=== PATIENT | male | born 1935 | race Caucasian/White ===

== ENCOUNTER 2020-02-22 09:32 | Outpatient (REF) | payer MEDICARE, SELFPAY ==
[2020-02-22 10:17] LABS: MANUAL DIFF FLAG NO
[2020-02-22 10:23] LABS: Basophils Percent Auto 0.6 % (0-2); Eosinophils Absolute Auto 0.4 X10*3/uL (0.0-0.4); Eosinophils Percent Auto 5.8 % (0-4); Hematocrit 43.2 % (42-52); Hemoglobin 14.2 g/dl (14.0-18.0); Imm Gran Abs Auto 0.01 X10*3/uL (0.00-0.03); Imm Gran Pct Auto 0.2 % (0.0-0.4); Lymphocytes Absolute Auto 1.7 X10*3/uL (1.2-4.9); Lymphocytes Percent Auto 26.4 % (20-40); Mean Corpuscular HGB Conc 32.9 g/dl (31.0-36.0); Mean Corpuscular Hemoglobin 30.8 pg (27.0-33.0); Mean Corpuscular Volume 93.7 fL (80-98); Mean Platelet Volume 10.6 fL (9.4-12.4); Monocytes Absolute Auto 0.6 X10*3/uL (0.1-1.2); Monocytes Percent Auto 9.8 % (2-11); Neutrophils Absolute Auto 3.7 X10*3/uL (2.0-8.3); Neutrophils Percent Auto 57.2 % (45-73); Platelet Count 168 X10*3/uL (160-400); Red Blood Count 4.61 X10*6/uL (4.60-5.80); Red Cell Distribution Width 13.3 % (11.0-16.0); White Blood Count 6.4 X10*3/uL (4.8-10.8)
[2020-02-22 11:01] LABS: Glucose Urine UA NEG (NEG); Leukocyte Esterase Urine NEG (NEG); Nitrite Urine NEG (NEG); Specific Gravity - Urine 1.015 (1.005-1.025); Urine Blood NEG (NEG); Urine Ketones NEG (NEG); Urine Protein NEG (NEG-TRACE)
[2020-02-22 11:02] LABS: Alanine Aminotransferase 28 U/L (0-40); Albumin Level 4.5 g/dL (3.5-5.0); Alkaline Phosphatase 88 U/L (39-117); Anion Gap 11 (12-20); Aspartate Amino Transferase 38 U/L (5-37); Bilirubin Total 0.7 mg/dL (0.0-1.0); Blood Urea Nitrogen 18 mg/dL (9-16); Calcium 8.9 mg/dL (8.4-10.2); Carbon Dioxide 28 mmol/L (22-29); Chloride 105 mmol/L (96-108); Cholesterol 134 mg/dL; Estimated Glomerular Filt Rate > 60; Glucose Fasting 98 mg/dL (60-99); HDL Cholesterol 55 mg/dL; LDL Cholesterol Calculated 62 mg/dl; Potassium 3.8 mmol/l (3.3-5.1); Sodium 140 mmol/L (135-145); Total Protein 6.9 g/dL (6.5-8.0); Triglycerides 86 mg/dL
[2020-02-22 11:10] LABS: Appearance Urine CLEAR; Color Urine YELLOW
[2020-02-22 11:25] LABS: TSH reflex Free T4 3.27 mIU/mL (0.32-4.0)
[2020-02-22 11:53] LABS: Bacteria Urine TRACE /LPF; Mucus Urine TRACE /LPF; RBC Urine 0-2 /HPF (0); Squamous Epithelial Cell Urine 1+ /LPF; WBC Urine 0-2 /HPF (0-4)
== END 2020-02-22 09:33 | disposition home or self-care (01) ==
LOC: HO.10HDL 09:32
PROVIDERS: Visit Provider Internal Medicine
DX: E78.5 Hyperlipidemia, unspecified (principal); I10 Essential (primary) hypertension; I25.10 Atherosclerotic heart disease of native coronary artery without angina pectoris; K21.9 Gastro-esophageal reflux disease without esophagitis; N40.0 Benign prostatic hyperplasia without lower urinary tract symptoms; E66.3 Overweight
CPT/HCPCS: 36415; 80053; 80061; 81001; 84443; 85025

== ENCOUNTER → 2020-04-17 09:09 | Outpatient (BNVA) | payer MEDICARE, SELFPAY | PROVIDERS: PCP Internal Medicine; Visit Provider Internal Medicine Cardiovascular Disease | DX: R42 Dizziness and giddiness (principal); R00.2 Palpitations; I25.10 Atherosclerotic heart disease of native coronary artery without angina pectoris; Z95.3 Presence of xenogenic heart valve | CPT/HCPCS: 99212 ==

== ENCOUNTER 2020-04-30 09:29 | Outpatient (REF) | payer SELFPAY | END 2020-04-30 09:30 | disposition home or self-care (01) | LOC: HO.HAP 09:29 | PROVIDERS: Visit Provider Internal Medicine | DX: Z13.89 Encounter for screening for other disorder (principal) ==

== ENCOUNTER → 2020-05-12 13:03 | Outpatient (REF) | payer MEDICARE, SELFPAY ==
--- NOTE | 2020-05-12 13:07 | HM_ITS ---
TEST PERFORMED: Cardiac event monitoring. INDICATION: Palpitations. REQUESTING PHYSICIAN: Dr. Liz. ENROLLMENT PERIOD: 05/12/2020 to 06/11/2020 - 30 days. FINDINGS: In the above monitoring period, the underlying rhythm was sinus. The ventricular rate in the sample strip is 72 beats per minute. There is one patient selected symptom of chest pain and at that time, the rhythm was sinus. Otherwise, there is no evidence of any tachy or bradyarrhythmias or in fact anything else abnormal during the above 30 days. CONCLUSION: Study shows sinus rhythm only and no other arrhythmias. During the patient symptom of chest pain, the underlying rhythm was sinus. Marcus Delacruz MD HS/LARRYL / [phone]
== END ==
LOC: HO.CARD 13:03
PROVIDERS: Visit Provider Internal Medicine Cardiovascular Disease
DX: R00.2 Palpitations (principal)
CPT/HCPCS: 93270; 93272

== ENCOUNTER 2020-05-15 12:57 | Outpatient (REF) | payer SELFPAY | END 2020-05-15 12:58 | disposition home or self-care (01) | LOC: HO.HAP 12:57 | PROVIDERS: Visit Provider Internal Medicine | DX: Z46.1 Encounter for fitting and adjustment of hearing aid (principal); H90.3 Sensorineural hearing loss, bilateral | CPT/HCPCS: V5264 ==

== ENCOUNTER 2020-06-12 09:56 | Outpatient (REF) | payer SELFPAY ==
--- NOTE | 2020-06-12 10:10 | MHC.AU.P13 ---
Hearing Instrument Problem Date of Visit: 06/12/20 Right Ear: Utility System Operator: Phonak Model: [email or web address] B70-R Serial Number: [id number] Repair Warranty: 01/11/2020 Loss and Damage Warranty: 01/11/2020 Battery Size: Rechargeable Color: Sand Beige Systems Integration Manager: 2xS Type of Mold: Phonak C-Shell 1AAUC Warranty 09/07/2020 Type of Wax Guard: Cerustop Left Ear: Utility System Operator: Phonak Model: [email or web address] B70-R Serial Number: [id number] Repair Warranty: 01/11/2020 Loss and Damage Warranty: 01/11/2020 Battery Size: Rechargeable Color: Sand Beige Systems Integration Manager: 2xS Type of Mold: Phonak C-Shell AUA Warranty 09/07/2020 Type of Wax Guard: Cerustop Follow-Up Summary: Aid brought in - not working. Both aids cleaned and wax guards changed - now amplifying clearly. Recommendations: Recommendations: Hearing instrument follow-up or maintenance as needed. Signature: Provider: CECI Huston-
== END 2020-06-12 09:57 | disposition home or self-care (01) ==
LOC: HO.HAP 09:56
PROVIDERS: Visit Provider Internal Medicine
DX: Z46.1 Encounter for fitting and adjustment of hearing aid (principal)
CPT/HCPCS: 99499

== ENCOUNTER → 2020-06-16 09:00 | Outpatient (BNVA) | payer MEDICARE, SELFPAY | PROVIDERS: PCP Internal Medicine; Visit Provider Internal Medicine Cardiovascular Disease | DX: I25.10 Atherosclerotic heart disease of native coronary artery without angina pectoris (principal); Z79.899 Other long term (current) drug therapy; Z87.891 Personal history of nicotine dependence | CPT/HCPCS: Q3014 ==

== ENCOUNTER 2020-06-20 09:32 | Outpatient (REF) | payer SELFPAY ==
--- NOTE | 2020-06-20 10:45 | MHC.AU.HFU ---
Hearing Instrument Follow-Up- Binaural Date of Visit: 06/20/20 Right Ear: Animal Care Taker: Phonak Model: [employer] B70-R Serial Number: [id number] Repair Warranty: 01/11/2020 Loss and Damage Warranty: 01/11/2020 Battery Size: Rechargeable Color: Sand Beige Junior Architect: 2xS Type of Mold: Phonak C-Shell 1AAUC Warranty 09/07/2020 Type of Wax Guard: Cerustop Left Ear: Animal Care Taker: Phonak Model: [employer] B70-R Serial Number: [id number] Repair Warranty: 01/11/2020 Loss and Damage Warranty: 01/11/2020 Battery Size: Rechargeable Color: Sand Beige Junior Architect: 2xS Type of Mold: Phonak C-Shell AUA Warranty 09/07/2020 Type of Wax Guard: Cerustop Follow-Up Summary: Patient dropped off both hearing aids, reporting they were not working. Both receivers clogged with cerumen. Wax traps replaced. cShells cleaned. Microphones vacuumed. Hearing aids are amplifying well after maintenance. Recommendations: Hearing instrument follow-up or maintenance as needed. 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 He will owe $10 for maintenance out of warranty. Diagnosis Code(s): Primary Diagnosis: H90.3 Bilateral Sensorineural Hearing Loss Signature: Provider: Rodger Mccabe, [facility]
== END 2020-06-20 09:33 | disposition home or self-care (01) ==
LOC: HO.HAP 09:32
PROVIDERS: Visit Provider Internal Medicine
DX: Z46.1 Encounter for fitting and adjustment of hearing aid (principal)
CPT/HCPCS: 99499

== ENCOUNTER 2020-07-03 09:38 | Outpatient (REF) | payer MEDICARE, SELFPAY ==
[2020-07-03 10:12] LABS: MANUAL DIFF FLAG NO
[2020-07-03 10:19] LABS: Basophils Percent Auto 0.5 % (0-2); Eosinophils Absolute Auto 0.4 X10*3/uL (0.0-0.4); Hematocrit 41.9 % (42-52); Hemoglobin 13.9 g/dl (14.0-18.0); Imm Gran Abs Auto 0.01 X10*3/uL (0.00-0.03); Imm Gran Pct Auto 0.2 % (0.0-0.4); Lymphocytes Absolute Auto 1.4 X10*3/uL (1.2-4.9); Lymphocytes Percent Auto 23.3 % (20-40); Mean Corpuscular HGB Conc 33.2 g/dl (31.0-36.0); Mean Corpuscular Hemoglobin 30.8 pg (27.0-33.0); Mean Corpuscular Volume 92.9 fL (80-98); Mean Platelet Volume 10.2 fL (9.4-12.4); Monocytes Absolute Auto 0.6 X10*3/uL (0.1-1.2); Monocytes Percent Auto 10.6 % (2-11); Neutrophils Absolute Auto 3.6 X10*3/uL (2.0-8.3); Neutrophils Percent Auto 59.4 % (45-73); Platelet Count 152 X10*3/uL (160-400); Red Blood Count 4.51 X10*6/uL (4.60-5.80); Red Cell Distribution Width 13.4 % (11.0-16.0)
[2020-07-03 10:49] LABS: Alanine Aminotransferase 32 U/L (0-40); Albumin Level 4.1 g/dL (3.5-5.0); Alkaline Phosphatase 88 U/L (39-117); Anion Gap 9 (12-20); Aspartate Amino Transferase 33 U/L (5-37); Bilirubin Total 0.7 mg/dL (0.0-1.0); Blood Urea Nitrogen 23 mg/dL (9-16); Calcium 9.3 mg/dL (8.4-10.2); Carbon Dioxide 27 mmol/L (22-29); Chloride 108 mmol/L (96-108); Cholesterol 126 mg/dL; Estimated Glomerular Filt Rate > 60; Glucose Fasting 96 mg/dL (60-99); HDL Cholesterol 47 mg/dL; LDL Cholesterol Calculated 63 mg/dl; Sodium 140 mmol/L (135-145); Total Protein 6.4 g/dL (6.5-8.0); Triglycerides 82 mg/dL
[2020-07-03 11:02] LABS: Glucose Urine UA NEG (NEG); Leukocyte Esterase Urine NEG (NEG); Nitrite Urine NEG (NEG); PH 6.5 (5.0-8.0); Urine Blood NEG (NEG); Urine Ketones NEG (NEG); Urine Protein NEG (NEG-TRACE)
[2020-07-03 11:04] LABS: TSH reflex Free T4 2.24 uIU/mL (0.32-4.0)
[2020-07-03 11:09] LABS: Appearance Urine CLEAR; Color Urine YELLOW
== END 2020-07-03 09:39 | disposition home or self-care (01) ==
LOC: HO.LAB 09:38
PROVIDERS: PCP Internal Medicine; Visit Provider Internal Medicine
DX: I10 Essential (primary) hypertension (principal); I25.10 Atherosclerotic heart disease of native coronary artery without angina pectoris; K21.9 Gastro-esophageal reflux disease without esophagitis; E78.00 Pure hypercholesterolemia, unspecified; E66.3 Overweight; N40.0 Benign prostatic hyperplasia without lower urinary tract symptoms
CPT/HCPCS: 36415; 80053; 80061; 81003; 84443; 85025

== ENCOUNTER → 2020-10-21 08:59 | Outpatient (BNVA) | payer MEDICARE, SELFPAY | PROVIDERS: PCP Internal Medicine; Referring Provider Internal Medicine; Visit Provider Internal Medicine Cardiovascular Disease | DX: I25.10 Atherosclerotic heart disease of native coronary artery without angina pectoris (principal); Z95.3 Presence of xenogenic heart valve | CPT/HCPCS: 93005; 99212 ==

== ENCOUNTER 2020-10-30 11:27 | Outpatient (REF) | payer MEDICARE, SELFPAY ==
[2020-10-30 13:57] LABS: Appearance Urine CLEAR; Color Urine YELLOW; Glucose Urine UA NEG (NEG); Leukocyte Esterase Urine NEG (NEG); Nitrite Urine NEG (NEG); Specific Gravity - Urine 1.025 (1.005-1.025); Urine Blood NEG (NEG); Urine Ketones NEG (NEG); Urine Protein TRACE MG/DL (NEG-TRACE)
[2020-10-30 14:00] LABS: MANUAL DIFF FLAG NO
[2020-10-30 14:38] LABS: Alanine Aminotransferase 25 U/L (0-40); Albumin Level 3.9 g/dL (3.5-5.0); Alkaline Phosphatase 71 U/L (39-117); Anion Gap 10 (12-20); Aspartate Amino Transferase 32 U/L (5-37); Basophils Percent Auto 0.5 % (0-2); Bilirubin Total 0.8 mg/dL (0.0-1.0); Blood Urea Nitrogen 22 mg/dL (9-16); Carbon Dioxide 25 mmol/L (22-29); Chloride 111 mmol/L (96-108); Cholesterol 114 mg/dL; Eosinophils Absolute Auto 0.3 X10*3/uL (0.0-0.4); Eosinophils Percent Auto 4.7 % (0-4); Estimated Glomerular Filt Rate > 60; Glucose Fasting 80 mg/dL (60-99); HDL Cholesterol 50 mg/dL; Hematocrit 38.5 % (42-52); Hemoglobin 12.9 g/dl (14.0-18.0); Imm Gran Abs Auto 0.01 X10*3/uL (0.00-0.03); Imm Gran Pct Auto 0.2 % (0.0-0.4); LDL Cholesterol Calculated 54 mg/dl; Lymphocytes Absolute Auto 1.4 X10*3/uL (1.2-4.9); Lymphocytes Percent Auto 25.7 % (20-40); Mean Corpuscular HGB Conc 33.5 g/dl (31.0-36.0); Mean Corpuscular Hemoglobin 31.2 pg (27.0-33.0); Mean Corpuscular Volume 93.2 fL (80-98); Mean Platelet Volume 11.1 fL (9.4-12.4); Monocytes Absolute Auto 0.7 X10*3/uL (0.1-1.2); Monocytes Percent Auto 12.4 % (2-11); Neutrophils Absolute Auto 3.1 X10*3/uL (2.0-8.3); Neutrophils Percent Auto 56.5 % (45-73); Platelet Count 139 X10*3/uL (160-400); Potassium 3.9 mmol/L (3.3-5.1); Red Blood Count 4.13 X10*6/uL (4.60-5.80); Red Cell Distribution Width 13.9 % (11.0-16.0); Sodium 142 mmol/L (135-145); Total Protein 6.1 g/dL (6.5-8.0); Triglycerides 53 mg/dL; White Blood Count 5.5 X10*3/uL (4.8-10.8)
[2020-10-30 14:49] LABS: Vitamin D 25-OH Total 28.7 ng/mL (>30)
[2020-10-30 15:06] LABS: Folate > 20.0 ng/mL (> or = 4.0); Vitamin B12 537 pg/mL (200-900)
[2020-10-30 19:02] LABS: TSH reflex Free T4 2.27 uIU/mL (0.32-4.0)
== END 2020-10-30 11:28 | disposition home or self-care (01) ==
LOC: HO.10HDL 11:27
PROVIDERS: Visit Provider Internal Medicine
DX: G62.9 Polyneuropathy, unspecified (principal); R42 Dizziness and giddiness; I10 Essential (primary) hypertension; I25.10 Atherosclerotic heart disease of native coronary artery without angina pectoris; K21.9 Gastro-esophageal reflux disease without esophagitis; E78.00 Pure hypercholesterolemia, unspecified; E55.9 Vitamin D deficiency, unspecified; E66.3 Overweight
CPT/HCPCS: 36415; 80053; 80061; 81003; 82306; 82607; 82746; 84443; 85025

== ENCOUNTER 2020-11-04 13:12 | Outpatient (REF) | payer MEDICARE, SELFPAY ==
--- NOTE | ~2020-11-04 | XR_ITS ---
EXAMINATION: XR LUMBOSACRAL SPINE CLINICAL INFORMATION: Chronic lower back pain. No recent injury. COMPARISON: Lumbar spine MRI dated 03/24/2015 TECHNIQUE: Three views of the lumbosacral spine. FINDINGS: Dextrocurvature of the lumbar spine centered at the L2 vertebral body. The lumbar lordosis is maintained. Minimal grade 1 anterolisthesis of L4 on L5. No acute loss of vertebral body height. Multilevel loss of intervertebral disc height with anterior endplate osteophytes. Severe lower lumbar spine bilateral facet arthropathy. Moderate stool burden. XR/XR lumbar spine 2-3V IMPRESSION: Dextrocurvature of the lumbar spine centered at the L2 vertebral body. Minimal grade 1 anterolisthesis of L4 on L5. Findings are unchanged. Multilevel degenerative disc disease and bilateral facet arthropathy, slightly progressed when compared to the prior examination.
== END 2020-11-04 13:13 | disposition home or self-care (01) ==
LOC: HO.XRAY 13:12
PROVIDERS: PCP Internal Medicine; Visit Provider Internal Medicine
DX: M54.5 Low back pain (principal)
CPT/HCPCS: 72100

== ENCOUNTER 2021-02-23 08:56 | Outpatient (REF) | payer MEDICARE, SELFPAY ==
[2021-02-23 10:27] LABS: Basophils Percent Auto 0.5 % (0-2); Eosinophils Absolute Auto 0.4 X10*3/uL (0.0-0.4); Eosinophils Percent Auto 7.4 % (0-4); Hematocrit 41.5 % (42.0-52.0); Hemoglobin 13.7 g/dl (14.0-18.0); Imm Gran Abs Auto 0.01 X10*3/uL (0.00-0.03); Imm Gran Pct Auto 0.2 % (0.0-0.4); Lymphocytes Absolute Auto 1.4 X10*3/uL (1.2-4.9); Lymphocytes Percent Auto 25.5 % (20-40); MANUAL DIFF FLAG NO; Mean Corpuscular Hemoglobin 30.8 pg (27.0-33.0); Mean Corpuscular Volume 93.3 fL (80.0-98.0); Mean Platelet Volume 10.8 fL (9.4-12.4); Monocytes Absolute Auto 0.5 X10*3/uL (0.1-1.2); Monocytes Percent Auto 9.7 % (2-11); Neutrophils Absolute Auto 3.2 x10*3/uL (2.0-8.3); Neutrophils Percent Auto 56.7 % (45-73); Platelet Count 147 X10*3/uL (160-400); Red Blood Count 4.45 X10*6/uL (4.60-5.80); Red Cell Distribution Width 13.4 % (11.0-16.0); White Blood Count 5.6 X10*3/uL (4.8-10.8)
[2021-02-23 10:39] LABS: Appearance Urine CLEAR; Color Urine YELLOW; Glucose Urine UA NEG (NEG); Leukocyte Esterase Urine NEG (NEG); Nitrite Urine NEG (NEG); PH 6.5 (5.0-8.0); Urine Blood NEG (NEG); Urine Ketones NEG (NEG); Urine Protein NEG (NEG-TRACE)
[2021-02-23 10:56] LABS: Alanine Aminotransferase 30 U/L (0-40); Albumin Level 3.9 g/dL (3.5-5.0); Alkaline Phosphatase 72 U/L (39-117); Anion Gap 10 (12-20); Aspartate Amino Transferase 30 U/L (5-37); Bilirubin Total 0.7 mg/dL (0.0-1.0); Blood Urea Nitrogen 17 mg/dL (9-16); Calcium 9.3 mg/dL (8.4-10.2); Carbon Dioxide 27 mmol/L (22-29); Chloride 109 mmol/L (96-108); Cholesterol 137 mg/dL; Estimated Glomerular Filt Rate > 60; Glucose Fasting 92 mg/dL (60-99); HDL Cholesterol 50 mg/dL; LDL Cholesterol Calculated 69 mg/dl; Potassium 4.1 mmol/L (3.3-5.1); Sodium 142 mmol/L (135-145); Total Protein 6.4 g/dL (6.5-8.0); Triglycerides 93 mg/dL
[2021-02-23 11:18] LABS: Vitamin D 25-OH Total 29.7 ng/mL (>30)
[2021-02-23 12:25] LABS: Free T4 (Free Thyroxine) 0.87 ng/dL (0.71-1.85)
== END 2021-02-23 08:57 | disposition home or self-care (01) ==
LOC: HO.10HDL 08:56
PROVIDERS: Visit Provider Internal Medicine
DX: E55.9 Vitamin D deficiency, unspecified (principal); I10 Essential (primary) hypertension; E78.00 Pure hypercholesterolemia, unspecified
CPT/HCPCS: 36415; 80053; 80061; 81003; 82306; 84439; 84443; 85025

== ENCOUNTER → 2021-04-27 07:25 | Outpatient (REF) | payer MEDICARE, SELFPAY ==
--- NOTE | 2021-04-27 07:28 | CA_ITS ---
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 Normal LV systolic function with impaired relaxation filling pattern 2. Normally function bioprosthetic aortic valve with mean gradient of 7 mmHg which is lower than calculated on last study with trivial aortic regurgitation 3. Normal RV systolic pressure 4. No pericardial effusion Findings Left Ventricle Normal left ventricular size, thickness, and systolic function. The visually estimated ejection fraction is between 60-65%. There is paradoxical septal motion consistent with post-operative status. Spectral Doppler is indicative of an impaired relaxation filling pattern. E/E prime ratio is between 8 and 15 consistent with indeterminate filling pressures. Right Ventricle Normal right ventricular cavity size and systolic function. Atria The left atrium is likely dilated. There is lipomatous hypertrophy of the interatrial septum. There is no evidence of interatrial shunt. The right atrium is normal in size. Aortic Valve A bioprosthetic aortic valve is present. The prosthetic aortic valve appears to be functioning normally. The mean gradient is 7 mmHg. There is trace (trivial) aortic valve regurgitation. The valve is well seated with no abnormal rocking motion. Mitral Valve There is mild anterior and posterior mitral leaflet thickening. There is mild mitral annular calcification. There is trace mitral valve regurgitation. There is no mitral valve stenosis. Pulmonic Valve The pulmonic valve was not well visualized. Tricuspid Valve Normal tricuspid valve structure. There is trace tricuspid valve regurgitation. The right ventricular systolic pressure is 23 mmHg. Normal right atrial pressure. There is no evidence of pulmonary hypertension. Great Vessels All visible segments of the aorta are normal in size. The pulmonary artery was not well visualized. Venous The inferior vena cava is normal in size and collapses greater than 50% with inspiration. Pericardium/Pleural There is no evidence of pericardial effusion. Prior Study Comparison No significant change compared to prior study dated: 10/23/2019. Measurements 2D Linear Measurements IVSd: 1.14 0.6-0.9/0.6-1.0 cm LVIDd: 3.40 3.9-5.3/4.2-5.9 cm LVIDd Index: 1.67 2.4-3.2/2.2-3.1 cm/m2 LVIDs: 2.06 2.0-3.6 cm LVPWd: 1.17 0.7-1.1 cm Ao Root: 3.40 2.1-3.5 cm LA Diam: 3.00 2.7-3.8/3.0-4.0 cm LAIDs Index: 1.47 1.5-2.3 cm/m2 LV Mass: 152.74 67-162/88-224 g LV Mass Index: 74.87 43-95/49-115 g/m2 LVOT Diam: 2.00 3.0+(-)1.3 cm 2D Systolic Function EF 4C: 62.70 >55% EF 2C: 63.40 >55% EF BiP: 63.20 >55% Mitral Valve MV Pk E: 0.78 MV PK A: 0.89 MV Decel Time: 240.00 E/A: 0.90 E'Lateral: 10.20 E'Medial: 6.64 E/E' Med: 11.70 E/E' Lat: 7.60 PHT: 70.00 MVA PHT: 3.14 Decel Kershaw: 3.24 Aortic Valve AoV Pk Floyd: 1.92 AoV Mn Floyd: 1.20 AoV VTI: 0.41 AoV Pk Grad: 15.00 Aov Mn Grad: 7.00 MOOK Cont.VTI: 1.77 LVOT LVOT Pk Floyd: 0.93 LVOT Mn Floyd: 0.71 LVOT VTI: 0.23 LVOT Pk Grad: 3.00 LVOT Mn Grad: 2.00 LVOT Diam: 2.00 LVOT Area: 3.14 Diastolic Function MV Pk E: 0.78 MV Pk A: 0.89 E/A: 0.90 E'Medial: 6.64 E/E' Med: 11.70 E' Laterial: 10.20 E/E' Lat: 7.60 Right Ventricle TAPSE (mm): 22.00 TVS' Floyd: 10.00 Tricuspid Valve TR Pk Floyd: 2.26 TR Pk Grad: 20.00 RA Press: 3.00 RVSP: 23.00 Great Vessels Aorta Ao Root-2D: 3.40 2.0-3.7 cm Sinus of Valsalva: 3.30 2.0-3.5 cm Ao Asc: 3.40 2.1-3.4 cm Pulmonary Valve PV Pk Floyd: 1.00 Peak PV Grad: 4.00 Updated in Other Vendor System with Status of Final Juan Alberto Liz MD electronically signed on 04/28/2021 9:34:11 AM with status of Final
== END ==
LOC: HO.CARD 07:25
PROVIDERS: PCP Internal Medicine; Visit Provider Internal Medicine Cardiovascular Disease
DX: I10 Essential (primary) hypertension (principal); I25.10 Atherosclerotic heart disease of native coronary artery without angina pectoris; Z95.3 Presence of xenogenic heart valve
CPT/HCPCS: 93306

== ENCOUNTER → 2021-04-28 09:21 | Outpatient (BNVA) | payer MEDICARE, SELFPAY | PROVIDERS: PCP Internal Medicine; Referring Provider Internal Medicine; Visit Provider Internal Medicine Cardiovascular Disease | DX: I25.10 Atherosclerotic heart disease of native coronary artery without angina pectoris (principal); Z95.3 Presence of xenogenic heart valve | CPT/HCPCS: 99212 ==

== ENCOUNTER 2021-06-22 10:10 | Outpatient (REF) | payer MEDICARE, SELFPAY ==
[2021-06-22 10:30] LABS: MANUAL DIFF FLAG NO
[2021-06-22 10:33] LABS: Basophils Percent Auto 0.3 % (0-2); Eosinophils Absolute Auto 0.4 X10*3/uL (0.0-0.4); Eosinophils Percent Auto 6.5 % (0-4); Hematocrit 42.8 % (42.0-52.0); Hemoglobin 14.1 g/dl (14.0-18.0); Imm Gran Abs Auto 0.01 X10*3/uL (0.00-0.03); Imm Gran Pct Auto 0.2 % (0.0-0.4); Lymphocytes Absolute Auto 1.4 X10*3/uL (1.2-4.9); Lymphocytes Percent Auto 24.1 % (20-40); Mean Corpuscular HGB Conc 32.9 g/dl (31.0-36.0); Mean Corpuscular Hemoglobin 30.7 pg (27.0-33.0); Mean Corpuscular Volume 93.2 fL (80.0-98.0); Mean Platelet Volume 10.5 fL (9.4-12.4); Monocytes Absolute Auto 0.6 X10*3/uL (0.1-1.2); Neutrophils Absolute Auto 3.5 x10*3/uL (2.0-8.3); Neutrophils Percent Auto 58.9 % (45-73); Platelet Count 157 X10*3/uL (160-400); Red Blood Count 4.59 X10*6/uL (4.60-5.80); Red Cell Distribution Width 13.5 % (11.0-16.0)
[2021-06-22 11:02] LABS: Alanine Aminotransferase 29 U/L (0-40); Albumin Level 4.1 g/dL (3.5-5.0); Alkaline Phosphatase 71 U/L (39-117); Anion Gap 13 (12-20); Aspartate Amino Transferase 33 U/L (5-37); Bilirubin Total 0.7 mg/dL (0.0-1.0); Blood Urea Nitrogen 20 mg/dL (9-16); Calcium 9.5 mg/dL (8.4-10.2); Carbon Dioxide 25 mmol/L (22-29); Chloride 110 mmol/L (96-108); Cholesterol 141 mg/dL; Estimated Glomerular Filt Rate > 60; Glucose Fasting 102 mg/dL (60-99); HDL Cholesterol 48 mg/dL; LDL Cholesterol Calculated 77 mg/dl; Potassium 4.9 mmol/L (3.3-5.1); Sodium 143 mmol/L (135-145); Total Protein 6.7 g/dL (6.5-8.0); Triglycerides 80 mg/dL
[2021-06-22 11:24] LABS: TSH reflex Free T4 3.56 uIU/mL (0.32-4.0); Vitamin D 25-OH Total 33.5 ng/mL (>30)
[2021-06-22 13:59] LABS: Appearance Urine CLEAR; Color Urine YELLOW; Glucose Urine UA NEG (NEG); Leukocyte Esterase Urine NEG (NEG); Nitrite Urine NEG (NEG); PH 6.5 (5.0-8.0); Specific Gravity - Urine 1.015 (1.005-1.025); Urine Blood NEG (NEG); Urine Ketones NEG (NEG); Urine Protein TRACE MG/DL (NEG-TRACE)
== END 2021-06-22 10:11 | disposition home or self-care (01) ==
LOC: HO.10HDL 10:10
PROVIDERS: Visit Provider Internal Medicine
DX: E78.00 Pure hypercholesterolemia, unspecified (principal); E55.9 Vitamin D deficiency, unspecified; I10 Essential (primary) hypertension
CPT/HCPCS: 36415; 80053; 80061; 81003; 82306; 84443; 85025

== ENCOUNTER 2021-10-26 09:43 | Outpatient (REF) | payer MEDICARE, SELFPAY ==
[2021-10-26 10:44] LABS: MANUAL DIFF FLAG NO
[2021-10-26 10:55] LABS: Basophils Percent Auto 0.5 % (0-2); Eosinophils Absolute Auto 0.3 X10*3/uL (0.0-0.4); Eosinophils Percent Auto 4.5 % (0-4); Hematocrit 40.7 % (42.0-52.0); Hemoglobin 13.3 g/dl (14.0-18.0); Imm Gran Abs Auto 0.01 X10*3/uL (0.00-0.03); Imm Gran Pct Auto 0.2 % (0.0-0.4); Lymphocytes Absolute Auto 1.4 X10*3/uL (1.2-4.9); Lymphocytes Percent Auto 25.2 % (20-40); Mean Corpuscular HGB Conc 32.7 g/dl (31.0-36.0); Mean Corpuscular Hemoglobin 31.3 pg (27.0-33.0); Mean Corpuscular Volume 95.8 fL (80.0-98.0); Mean Platelet Volume 11.3 fL (9.4-12.4); Monocytes Absolute Auto 0.6 X10*3/uL (0.1-1.2); Monocytes Percent Auto 10.3 % (2-11); Neutrophils Absolute Auto 3.4 x10*3/uL (2.0-8.3); Neutrophils Percent Auto 59.3 % (45-73); Platelet Count 119 X10*3/uL (160-400); Red Blood Count 4.25 X10*6/uL (4.60-5.80); Red Cell Distribution Width 13.5 % (11.0-16.0); White Blood Count 5.7 X10*3/uL (4.8-10.8)
[2021-10-26 11:01] LABS: Appearance Urine Clear; Color Urine Yellow; Glucose Urine UA Negative (Negative); Leukocyte Esterase Urine Trace (Negative); Nitrite Urine Negative (Negative); PH 6.5 (5.0-9.0); Specific Gravity - Urine 1.025 (1.005-1.025); Urine Blood Negative (Negative); Urine Ketones Trace mg/dL (Negative); Urine Protein Trace mg/dL (Neg-Trace)
[2021-10-26 11:08] LABS: Bacteria Urine None Seen (None Seen); Hyaline Casts Urine 0-2 /LPF (0-2); RBC Urine 0-2 /HPF (0-2); Squamous Epithelial Cell Urine 0-2 /HPF (0-2); WBC Urine 0-5 /HPF (0-5)
[2021-10-26 11:09] LABS: UACC Culture Trigger NO
[2021-10-26 11:34] LABS: Alanine Aminotransferase 24 U/L (0-40); Albumin Level 4.2 g/dL (3.5-5.0); Alkaline Phosphatase 69 U/L (39-117); Anion Gap 13 (12-20); Aspartate Amino Transferase 32 U/L (5-37); Bilirubin Total 0.9 mg/dL (0.0-1.0); Blood Urea Nitrogen 19 mg/dL (9-16); Calcium 9.2 mg/dL (8.4-10.2); Carbon Dioxide 27 mmol/L (22-29); Chloride 106 mmol/L (96-108); Cholesterol 130 mg/dL; Estimated Glomerular Filt Rate > 60; Glucose Fasting 94 mg/dL (60-99); HDL Cholesterol 48 mg/dL; LDL Cholesterol Calculated 66 mg/dl; Potassium 4.7 mmol/L (3.3-5.1); Sodium 141 mmol/L (135-145); Total Protein 6.7 g/dL (6.5-8.0); Triglycerides 84 mg/dL
[2021-10-26 11:44] LABS: TSH reflex Free T4 3.19 uIU/mL (0.32-4.0); Vitamin D 25-OH Total 38.6 ng/mL (>30)
== END 2021-10-26 09:44 | disposition home or self-care (01) ==
LOC: HO.10HDL 09:43
PROVIDERS: Visit Provider Internal Medicine
DX: I10 Essential (primary) hypertension (principal); E78.00 Pure hypercholesterolemia, unspecified; E55.9 Vitamin D deficiency, unspecified
CPT/HCPCS: 36415; 80053; 80061; 81001; 81003; 82306; 84443; 85025

== ENCOUNTER 2022-03-09 10:28 | Outpatient (REF) | payer MEDICARE, SELFPAY ==
[2022-03-09 13:56] LABS: Appearance Urine Clear; Color Urine Yellow; Glucose Urine UA Negative (Negative); Leukocyte Esterase Urine Negative (Negative); Nitrite Urine Negative (Negative); PH 6.5 (5.0-9.0); Urine Blood Negative (Negative); Urine Ketones Negative (Negative); Urine Protein Negative (Neg-Trace)
[2022-03-09 14:19] LABS: Basophils Percent Auto 0.5 % (0-2); Eosinophils Absolute Auto 0.4 X10*3/uL (0.0-0.4); Eosinophils Percent Auto 6.8 % (0-4); Hematocrit 42.9 % (42.0-52.0); Hemoglobin 13.9 g/dl (14.0-18.0); Imm Gran Abs Auto 0.02 X10*3/uL (0.00-0.03); Imm Gran Pct Auto 0.3 % (0.0-0.4); Lymphocytes Absolute Auto 1.6 X10*3/uL (1.2-4.9); Lymphocytes Percent Auto 25.9 % (20-40); MANUAL DIFF FLAG NO; Mean Corpuscular HGB Conc 32.4 g/dl (31.0-36.0); Mean Corpuscular Hemoglobin 30.6 pg (27.0-33.0); Mean Corpuscular Volume 94.5 fL (80.0-98.0); Mean Platelet Volume 11.9 fL (9.4-12.4); Monocytes Absolute Auto 0.6 X10*3/uL (0.1-1.2); Monocytes Percent Auto 9.3 % (2-11); Neutrophils Absolute Auto 3.6 x10*3/uL (2.0-8.3); Neutrophils Percent Auto 57.2 % (45-73); Platelet Count 123 X10*3/uL (160-400); Red Blood Count 4.54 X10*6/uL (4.60-5.80); Red Cell Distribution Width 13.5 % (11.0-16.0); White Blood Count 6.3 X10*3/uL (4.8-10.8)
[2022-03-09 15:31] LABS: Alanine Aminotransferase 28 U/L (0-40); Albumin Level 4.2 g/dL (3.5-5.0); Alkaline Phosphatase 72 U/L (39-117); Anion Gap 12 (12-20); Aspartate Amino Transferase 33 U/L (5-37); Bilirubin Total 0.9 mg/dL (0.0-1.0); Blood Urea Nitrogen 22 mg/dL (9-16); Calcium 9.2 mg/dL (8.4-10.2); Carbon Dioxide 27 mmol/L (22-29); Chloride 107 mmol/L (96-108); Cholesterol 139 mg/dL; Estimated Glomerular Filt Rate 59; Glucose Fasting 92 mg/dL (60-99); HDL Cholesterol 51 mg/dL; LDL Cholesterol Calculated 72 mg/dl; Potassium 4.3 mmol/L (3.3-5.1); Sodium 142 mmol/L (135-145); TSH reflex Free T4 4.63 uIU/mL (0.32-4.0); Total Protein 6.6 g/dL (6.5-8.0); Triglycerides 83 mg/dL; Vitamin D 25-OH Total 30.2 ng/mL (>30)
[2022-03-09 16:01] LABS: Free T4 (Free Thyroxine) 0.83 ng/dL (0.71-1.85)
== END 2022-03-09 10:29 | disposition home or self-care (01) ==
LOC: HO.10HDL 10:28
PROVIDERS: Visit Provider Internal Medicine
DX: I10 Essential (primary) hypertension (principal); E55.9 Vitamin D deficiency, unspecified; E78.00 Pure hypercholesterolemia, unspecified
CPT/HCPCS: 36415; 80053; 80061; 81003; 82306; 84439; 84443; 85025

== ENCOUNTER → 2022-04-13 08:52 | Outpatient (REF) | payer MEDICARE, SELFPAY ==
--- NOTE | ~2022-04-13 | NM_ITS ---
EXERCISE MYOCARDIAL PERFUSION STUDY INDICATION: Chest pain, assess for coronary disease and ischemia TECHNIQUE: The patient was brought in for an exercise perfusion study on 04/15/2022. Patient performed exercise as per Avelino protocol and was injected 30 mCi of sestamibi once target heart rate was achieved. Images were obtained using the SPECT gamma camera interlaced with the gating device. Images were obtained in supine position. Resting perfusion study was performed on 04/13/2022. Patient was administered 30 mCi of sestamibi intravenously at rest. Images were then obtained in supine position. Total DLP 77mGy-cm. Images were processed with the software and compared side to side in short axis, horizontal long axis and vertical long axis views. FINDINGS: Raw images were reviewed. The stress perfusion study showed diminished tracer uptake along the inferior wall. There is significant improvement with CT attenuation correction suggestive of diaphragmatic attenuation artifact. The gated study shows normal LV systolic function with calculated LVEF of 63%. LV cavity is normal in size. The gated study shows normal wall thickening and contraction of segments. Resting study shows diminished tracer uptake along the inferior wall. There is significant improvement with CT attenuation correction suggestive of diaphragmatic attenuation artifact. Gating at rest reveals normal wall motion with ejection fraction at 68%. The findings are consistent with fixed inferior defect, suspected to be from diaphragmatic attenuation artifact. No reversible defects. NM/NM cardiolite stress test IMPRESSION: 1. Myocardial perfusion imaging study shows likely normal myocardial perfusion. 2. Gated LVEF is 62% during stress and 68% during rest. 3. Transient ischemic dilatation not present. EKG component of the test reported separately.
--- NOTE | 2022-04-13 09:12 | CA_ITS ---
Acquisition Time: 2022-04-13 09:15:36 Total Exercise Time: 00:00:00 Test Indications: cp Medications: see h Protocol: ADELE Max HR: 082 BPM 60% of Pred: 135 BPM Max BP: 126/110 mmHG Max Work Load: 1.0 METS Resting images today and stress test . pt will come in for ECHO tomorrow Referred By: Ceferino Braxton Overread By:
--- NOTE | 2022-04-13 10:37 | CA_ITS ---
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 Normal LV systolic function with impaired relaxation filling pattern with elevated filling pressures 2. Mildly dilated left atrium 3. Bioprosthetic aortic valve present with increase mean gradient at 13 mmHg 4. Normal RV systolic pressure 5. Mildly dilated ascending aorta at 3.8 cm 6. No pericardial effusion Findings Left Ventricle Normal left ventricular size, thickness, and systolic function. The visually estimated ejection fraction is between 60-65%. Spectral Doppler is indicative of an impaired relaxation filling pattern. E/E prime ratio is >15, consistent with elevated filling pressures. There is mild septal asymmetric hypertrophy. Right Ventricle Normal right ventricular cavity size and systolic function. Atria The left atrium is mildly dilated. There is no evidence of interatrial shunt. The right atrium is likely dilated. Aortic Valve A bioprosthetic aortic valve is present. the bioprosthetic valve is well seated with no abnormal rocking motion. The mean gradient across the bioprosthetic valve is increased to 13 mmHg. The leaflets are not well visualized. Mitral Valve There is mild anterior and posterior mitral leaflet thickening. There is trace mitral valve regurgitation. There is no mitral valve stenosis. Pulmonic Valve The pulmonic valve was not well visualized. Tricuspid Valve Likely normal tricuspid valve structure and function. There is trace tricuspid valve regurgitation. The right ventricular systolic pressure is normal. The right ventricular systolic pressure is 21 mmHg. Normal right atrial pressure. There is no evidence of pulmonary hypertension. Great Vessels The pulmonary artery was not well visualized. There is mild dilatation of the ascending aorta measuring 3.80 cm. Venous The inferior vena cava is normal in size and collapses greater than 50% with inspiration. Pericardium/Pleural There is no evidence of pericardial effusion. Prior Study Comparison Changes noted compared to prior study dated: 04/27/2021. mean gradient across the aortic valve are elevated. Will follow-up with repeat study in 1 year's time Measurements 2D Linear Measurements IVSd: 1.21 0.6-0.9/0.6-1.0 cm LVIDd: 5.03 3.9-5.3/4.2-5.9 cm LVIDd Index: 2.45 2.4-3.2/2.2-3.1 cm/m2 LVIDs: 2.98 2.0-3.6 cm LVPWd: 0.98 0.7-1.1 cm LA Diam: 4.10 2.7-3.8/3.0-4.0 cm LAIDs Index: 2.00 1.5-2.3 cm/m2 LV Mass: 259.72 67-162/88-224 g LV Mass Index: 126.69 43-95/49-115 g/m2 LVOT Diam: 2.00 3.0+(-)1.3 cm 2D Systolic Function EF 4C: 63.70 >55% EF 2C: 62.50 >55% EF BiP: 63.20 >55% Mitral Valve MV Pk E: 1.03 MV PK A: 1.11 MV Decel Time: 253.00 E/A: 0.90 E'Lateral: 6.85 E'Medial: 6.31 E/E' Med: 16.30 E/E' Lat: 15.00 PHT: 74.00 MVA PHT: 2.97 Decel Pleasants: 4.07 Aortic Valve AoV Pk Floyd: 2.44 AoV Mn Floyd: 1.64 AoV VTI: 0.61 AoV Pk Grad: 24.00 Aov Mn Grad: 13.00 MOOK Cont.VTI: 1.84 AI Pk Floyd: 3.23 AI Pleasants: 3.05 LVOT LVOT Pk Floyd: 1.51 LVOT Mn Floyd: 0.98 LVOT VTI: 0.36 LVOT Pk Grad: 9.00 LVOT Mn Grad: 5.00 LVOT Diam: 2.00 LVOT Area: 3.14 Diastolic Function MV Pk E: 1.03 MV Pk A: 1.11 E/A: 0.90 E'Medial: 6.31 E/E' Med: 16.30 E' Laterial: 6.85 E/E' Lat: 15.00 Right Ventricle TAPSE (mm): 20.30 TVS' Floyd: 9.90 Tricuspid Valve TR Pk Floyd: 2.12 TR Pk Grad: 18.00 RA Press: 3.00 RVSP: 21.00 Great Vessels Aorta Sinus of Valsalva: 3.40 2.0-3.5 cm Ao Asc: 3.80 2.1-3.4 cm Pulmonary Valve PV Pk Floyd: 1.37 Peak PV Grad: 8.00 Updated in Other Vendor System with Status of Final Juan Alberto Liz MD electronically signed on 04/15/2022 8:28:58 AM with status of Final
== END ==
LOC: HO.CARD 08:52
PROVIDERS: PCP Internal Medicine; Visit Provider Internal Medicine
DX: R07.9 Chest pain, unspecified (principal)
CPT/HCPCS: 78452; 93017; 93306; A9500

== ENCOUNTER → 2022-04-29 09:24 | Outpatient (BNVA) | payer MEDICARE, SELFPAY | PROVIDERS: PCP Internal Medicine; Referring Provider Internal Medicine; Visit Provider Internal Medicine Cardiovascular Disease | DX: I25.10 Atherosclerotic heart disease of native coronary artery without angina pectoris (principal); R42 Dizziness and giddiness; R60.0 Localized edema; Z95.3 Presence of xenogenic heart valve | CPT/HCPCS: 93005; 99212 ==

== ENCOUNTER 2022-05-19 09:44 | Outpatient (REF) | payer MEDICARE, SELFPAY ==
--- NOTE | ~2022-05-19 | US_ITS ---
EXAMINATION: US EXTRACRANIAL CAROTID DUPLEX, BILATERAL CLINICAL INFORMATION: Dizziness. Former smoker. Hyperlipidemia. COMPARISON: None available. TECHNIQUE: Real-time ultrasound and Doppler techniques (integrating B-mode 2-D vascular images, Doppler spectral analysis and color-flow Doppler imaging) were utilized to interrogate the extracranial carotid arteries, the vertebral arteries and proximal subclavian arteries bilaterally. The degree of stenosis is determined by criteria similar to NASCET. FINDINGS: Right Side: 1. There is mild atherosclerotic plaque seen in the bifurcation/proximal ICA region. 2. The common carotid artery PSV proximally is 131 cm/s and distally 125 cm/s. 3. The proximal internal carotid artery velocities are 99 cm/s systolic and 23 cm/s diastolic. 4. The proximal external carotid artery PSV is 102 cm/s. 5. The vertebral artery shows antegrade flow. 6. The subclavian artery waveforms are normal. Left Side: 1. There is mild atherosclerotic plaque seen in the bifurcation/proximal ICA region. 2. The common carotid artery PSV proximally is 150 cm/s and distally 128 cm/s. 3. The proximal internal carotid artery velocities are 110 cm/s systolic and 22 cm/s diastolic. 4. The proximal external carotid artery PSV is 90 cm/s. 5. The vertebral artery shows antegrade flow. 6. The subclavian artery waveforms are normal. US/US carotid duplex BI IMPRESSION: 1. RIGHT: Minimal, non-hemodynamically significant stenosis of the proximal right internal carotid artery corresponding to a 0-49% stenosis by velocity criteria. 2. LEFT: Minimal, non-hemodynamically significant stenosis of the proximal left internal carotid artery corresponding to a 0-49% stenosis by velocity criteria.
== END 2022-05-19 09:45 | disposition home or self-care (01) ==
LOC: HO.US 09:44
PROVIDERS: PCP Internal Medicine; Visit Provider Internal Medicine Cardiovascular Disease
DX: R42 Dizziness and giddiness (principal)
CPT/HCPCS: 93880

== ENCOUNTER 2022-07-07 09:13 | Outpatient (REF) | payer MEDICARE, SELFPAY ==
[2022-07-07 10:22] LABS: MANUAL DIFF FLAG NO
[2022-07-07 10:31] LABS: Appearance Urine Clear; Color Urine Dark Yellow; Glucose Urine UA Negative (Negative); Leukocyte Esterase Urine Negative (Negative); Nitrite Urine Negative (Negative); PH 6.5 (5.0-9.0); Specific Gravity - Urine 1.025 (1.005-1.025); UMIC TRIGGER UACC YES; Urine Blood Negative (Negative); Urine Ketones Trace mg/dL (Negative); Urine Protein 100 (2+) mg/dL (Neg-Trace)
[2022-07-07 10:34] LABS: Bacteria Urine None Seen (None Seen); Hyaline Casts Urine 0-2 /LPF (0-2); Squamous Epithelial Cell Urine 0-2 /HPF (0-2); WBC Urine 0-5 /HPF (0-5)
[2022-07-07 10:37] LABS: Basophils Percent Auto 0.7 % (0-2); Eosinophils Absolute Auto 0.3 X10*3/uL (0.0-0.4); Eosinophils Percent Auto 5.1 % (0-4); Hematocrit 39.6 % (42.0-52.0); Hemoglobin 13.1 g/dl (14.0-18.0); Imm Gran Abs Auto 0.01 X10*3/uL (0.00-0.03); Imm Gran Pct Auto 0.2 % (0.0-0.4); Lymphocytes Absolute Auto 1.4 X10*3/uL (1.2-4.9); Lymphocytes Percent Auto 25.4 % (20-40); Mean Corpuscular HGB Conc 33.1 g/dl (31.0-36.0); Mean Corpuscular Volume 93.6 fL (80.0-98.0); Mean Platelet Volume 11.5 fL (9.4-12.4); Monocytes Absolute Auto 0.6 X10*3/uL (0.1-1.2); Monocytes Percent Auto 10.6 % (2-11); Neutrophils Absolute Auto 3.3 x10*3/uL (2.0-8.3); Red Blood Count 4.23 X10*6/uL (4.60-5.80); Red Cell Distribution Width 13.5 % (11.0-16.0); White Blood Count 5.7 X10*3/uL (4.8-10.8)
[2022-07-07 10:38] LABS: Platelet Count 96 X10*3/uL (160-400)
[2022-07-07 11:19] LABS: Alanine Aminotransferase 39 U/L (0-40); Alkaline Phosphatase 70 U/L (39-117); Anion Gap 12 (12-20); Aspartate Amino Transferase 49 U/L (5-37); Bilirubin Total 1.2 mg/dL (0.0-1.0); Blood Urea Nitrogen 20 mg/dL (9-16); Calcium 9.5 mg/dL (8.4-10.2); Carbon Dioxide 27 mmol/L (22-29); Chloride 110 mmol/L (96-108); Cholesterol 118 mg/dL; Estimated Glomerular Filt Rate 59; Glucose Fasting 94 mg/dL (60-99); HDL Cholesterol 46 mg/dL; LDL Cholesterol Calculated 60 mg/dl; Potassium 4.4 mmol/L (3.3-5.1); Sodium 145 mmol/L (135-145); Total Protein 6.4 g/dL (6.5-8.0); Triglycerides 64 mg/dL
[2022-07-07 11:23] LABS: TSH reflex Free T4 3.53 uIU/mL (0.32-4.0); Vitamin D 25-OH Total 37.9 ng/mL (>30)
== END 2022-07-07 09:14 | disposition home or self-care (01) ==
LOC: HO.10HDL 09:13
PROVIDERS: Visit Provider Internal Medicine
DX: I10 Essential (primary) hypertension (principal); E55.9 Vitamin D deficiency, unspecified; E78.00 Pure hypercholesterolemia, unspecified
CPT/HCPCS: 36415; 80053; 80061; 81001; 82306; 84443; 85025

== ENCOUNTER 2022-09-01 12:48 | Outpatient (REF) | payer MEDICARE, SELFPAY | END 2022-09-01 12:49 | disposition home or self-care (01) | LOC: HO.HAP 12:48 | PROVIDERS: Visit Provider Internal Medicine | DX: Z13.89 Encounter for screening for other disorder (principal) ==

== ENCOUNTER 2022-09-30 08:36 | Outpatient (REF) | payer SELFPAY | END 2022-09-30 08:37 | disposition home or self-care (01) | LOC: HO.HAP 08:36 | PROVIDERS: Visit Provider Internal Medicine | DX: Z46.1 Encounter for fitting and adjustment of hearing aid (principal); H90.3 Sensorineural hearing loss, bilateral | CPT/HCPCS: V5014 ==

== ENCOUNTER 2022-11-12 08:38 | Outpatient (REF) | payer MEDICARE, SELFPAY ==
[2022-11-12 10:49] LABS: MANUAL DIFF FLAG NO
[2022-11-12 10:55] LABS: Appearance Urine Clear; Color Urine Yellow; Glucose Urine UA Negative (Negative); Leukocyte Esterase Urine Trace (Negative); Nitrite Urine Negative (Negative); Specific Gravity - Urine 1.025 (1.005-1.025); UMIC TRIGGER UACC YES; Urine Blood Negative (Negative); Urine Ketones Negative (Negative); Urine Protein 30 (1+) mg/dL (Neg-Trace)
[2022-11-12 11:02] LABS: Bacteria Urine None Seen (None Seen); Hyaline Casts Urine 0-2 /LPF (0-2); RBC Urine 0-2 /HPF (0-2); Squamous Epithelial Cell Urine 0-2 /HPF (0-2); WBC Urine 0-5 /HPF (0-5)
[2022-11-12 11:15] LABS: Basophils Percent Auto 0.5 % (0-2); Eosinophils Absolute Auto 0.3 X10*3/uL (0.0-0.4); Hemoglobin 12.9 g/dl (14.0-18.0); Imm Gran Abs Auto 0.01 X10*3/uL (0.00-0.03); Imm Gran Pct Auto 0.2 % (0.0-0.4); Lymphocytes Absolute Auto 1.4 X10*3/uL (1.2-4.9); Lymphocytes Percent Auto 25.2 % (20-40); Mean Corpuscular HGB Conc 33.1 g/dl (31.0-36.0); Mean Corpuscular Hemoglobin 31.8 pg (27.0-33.0); Mean Corpuscular Volume 96.1 fL (80.0-98.0); Mean Platelet Volume 12.4 fL (9.4-12.4); Monocytes Absolute Auto 0.7 X10*3/uL (0.1-1.2); Monocytes Percent Auto 12.8 % (2-11); Neutrophils Absolute Auto 3.2 x10*3/uL (2.0-8.3); Neutrophils Percent Auto 55.3 % (45-73); Platelet Count 82 X10*3/uL (160-400); Red Blood Count 4.06 X10*6/uL (4.60-5.80); Red Cell Distribution Width 13.5 % (11.0-16.0); White Blood Count 5.7 X10*3/uL (4.8-10.8)
[2022-11-12 11:23] LABS: Alanine Aminotransferase 48 U/L (0-40); Albumin Level 4.1 g/dL (3.5-5.0); Alkaline Phosphatase 64 U/L (39-117); Anion Gap 13 (12-20); Aspartate Amino Transferase 51 U/L (5-37); Bilirubin Total 0.8 mg/dL (0.0-1.0); Blood Urea Nitrogen 22 mg/dL (9-16); Calcium 9.3 mg/dL (8.4-10.2); Carbon Dioxide 25 mmol/L (22-29); Chloride 109 mmol/L (96-108); Cholesterol 118 mg/dL (<200); Estimated Glomerular Filt Rate > 60; Glucose Fasting 96 mg/dL (60-99); HDL Cholesterol 49 mg/dL (>40); LDL Cholesterol Calculated 58 mg/dL (<100); Potassium 4.3 mmol/L (3.3-5.1); Sodium 143 mmol/L (135-145); Total Protein 6.6 g/dL (6.5-8.0); Triglycerides 59 mg/dL (<150)
[2022-11-12 11:45] LABS: TSH reflex Free T4 3.86 uIU/mL (0.32-4.0); Vitamin D 25-OH Total 48.6 ng/mL (>30)
== END 2022-11-12 08:39 | disposition home or self-care (01) ==
LOC: HO.10HDL 08:38
PROVIDERS: Visit Provider Internal Medicine
DX: I10 Essential (primary) hypertension (principal); E78.00 Pure hypercholesterolemia, unspecified; E55.9 Vitamin D deficiency, unspecified; R30.0 Dysuria
CPT/HCPCS: 36415; 80053; 80061; 81001; 82306; 84443; 85025

== ENCOUNTER 2022-11-17 16:20 | Outpatient (AMB) | payer MEDICARE, SELFPAY ==
[2022-11-17 16:23] VITALS: BP 136/72; PULSE 70; O2SAT 97; BMI 24.2
--- NOTE | 2022-11-17 16:23 | MHC.PC.OV ---
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 Accompanied by: Self / Same As Patient Allergies No Known Allergies Allergy (Verified 11/18/22 05:05) Medication List - Last Reconciled 11/18/22 by Ceferino Braxton MD amoxicillin 2,000 mg (4 x 500 mg) PO ONCE aspirin (Ecotrin Low Strength) 81 mg PO DAILY brimonidine 0.2% 1 drp ophthalmic (eye) bumetanide 1 mg orally 1 tablet in am and 1/2 tablet at noon time 90 days ezetimibe (Zetia) 10 mg PO DAILY 90 days ibuprofen 800 mg PO TID omeprazole 20 mg PO DAILY rosuvastatin 40 mg PO DAILY sertraline 25 mg PO DAILY 30 days terazosin 5 mg PO DAILY Tobacco use date assessed: 11/17/22 Fall risk assessment: No Falls in past year Last assessed Fall Risk: 11/17/22 Dental Screening Dental Screen Date: 11/17/22 Did you have a dental visit in the last 12 months?: Yes Did you have a dental problem in the last 6 months where you did not have access to dental care?: No Was dental information given to patient?: Patient has dentist HPI Bilateral eye lid surgery, 11/29 HPI Details Patient comes in today at the request of Dr. Rigoberto Nielsen for a preoperative medical examination for clearance for surgery He is scheduled for bilateral eyelid surgery on 11/29/22 Patient states that he has been experiencing recurrent sensation of chest pressure as well as a frequent sensation wherein he feels his heart is pounding like crazy often for the past month States that his chest / heart sensation sometimes wake him up in the middle of the night States that he was able to get an appointment with cardiology (Dr. Liz) but his appointment recently got cancelled and he was rescheduled out to next month (December 2022) He is presently not sure if he should proceed with his eye surgery given his recurrent chest symptoms lately He has notice some shortness of breath associated with his chest pressure sensations lately He denies any headaches or dizziness No nausea/ vomiting, no abdominal pain No change in bowel habits noted States that he had some follow-up labs done a few days ago - discuss his results [facility] Medical History (Updated 11/18/22 @ 05:30 by Ceferino Braxton MD) Dermatochalasis of both upper eyelids Vitamin D deficiency Dizziness Overweight (BMI 25.0-29.9) Insomnia Sensorineural hearing loss (SNHL) of both ears Osteoarthritis Allergic rhinitis GERD without esophagitis Benign prostatic hyperplasia Peripheral neuropathy Lumbar degenerative disc disease Bilateral lower extremity edema Coronary artery disease Benign essential hypertension Pure hypercholesterolemia Surgical History S/P CABG x 5 History of aortic valve replacement with bioprosthetic valve Family History Father CVD (cardiovascular disease) Mother Medical history unknown Social History Housing: House Alcohol intake: current Alcohol intake frequency: holidays/special occasions only Alcohol type: wine Patient Tobacco Use Status: Former Tobacco user e-Cigarette/Vaping Use: Never Used Second Hand Smoke Exposure: Yes service: Yes Current occupational status: retired Cognitive needs: No Hearing needs: No Vision needs: Yes Questionnaire PHQ-9 Over the last 2 weeks, how often have you been bothered by any of the following problems? 1. Little interest or pleasure in doing things: more than half the days 2. Feeling down, depressed, or hopeless: more than half the days 3. Trouble falling or staying asleep, or sleeping too much: more than half the days 4. Feeling tired or having little energy: more than half the days 5. Poor appetite or overeating: several days 6. Feeling bad about yourself - or that you are a failure or have let yourself or your family down: not at all 7. Trouble concentrating on things, such as reading the newspaper or watching television: not at all 8. Moving or speaking so slowly that other people could have noticed. Or the opposite - being so fidgety or restless that you have been moving around a lot more than usual: not at all 9. Thoughts that you would be better off or of hurting yourself in some way: not at all Total score: 9 Depression Screening Interpretation: Positive Depression Screening Follow-up: Existing condition and In treatment Depression Screening Done: Yes 26983 - PHQ-9 Billing: Yes Source: Developed by Drs. Patrick Osorio, Lashae Davila, Krishna Webster and colleagues, with an educational kacie from [employer]. Thrive Questionnaire Date Thrive assessed: 11/17/22 I am a: Patient What is your living situation today?: I have a steady place to live Within the past 12 months, did the food you bought not last and you didn't have the money to get more?: Never true Within the past 12 months, did you worry whether your food would run out before you got money to buy more?: Never true Do you have trouble paying for medicines?: No Do you have trouble getting transportation to medical appointments?: No Do you have trouble paying your heating and electricity bill?: No Do you have trouble taking care of your child, family member or friend?: No Do you have trouble with day-to-day activities such as bathing, preparing meals, shopping, managing finances, etc.?: No Are you currently unemployed and looking for a job?: No Are you interested in more education?: No Please select the resources that you would like help with: None Currently or been in a relationship where the following occur: no concerns reported AUDIT C Alcohol Use Questionnaire (AUDIT-C) 1. How often do you have a drink containing alcohol?: Monthly or less 2. How many drinks containing alcohol do you have on a typical day when you are drinking?: 1 or 2 3. How often do you have six or more drinks on one occasion?: Never Total Score: 1 Score Reviewed/Action Taken: Yes CHAD-7 AMB Questionnaire CHAD-7 Date CHAD - 7 assessed: 11/17/22 Feeling nervous, anxious, or on edge: 0 = Not at all Not being able to stop or control worryin = Not at all Worrying too much about different things: 0 = Not at all Trouble relaxin = Not at all Being so restless that it is hard to sit still: 0 = Not at all Becoming easily annoyed or irritable: 0 = Not at all Feeling afraid as if something awful might happen: 0 = Not at all Total CHAD-7 score (0-4 normal; 5-9 mild; 10-14 moderate; 15-21 severe): 0 Source: Developed by Drs. Patrick Osorio, Lashae Davila, Krishna Webster and colleagues, with an educational kacie from [employer]. Review of Systems Const Denies chills, Reports fatigue, Denies fever(s) and Denies headache(s) ENT Denies dysphagia, Denies dizziness, Denies otalgia, Denies headache(s), Denies odynophagia and Denies sore throat Card Denies chest pain with activity (but reports (+) chest pressure/discomfort at times), Reports palpitations (often feels a pounding sensation in his chest) and Reports dyspnea (associated with his sensations of chest pressure/pounding at times) Resp Denies cough, Denies pain on inspiration and Reports dyspnea (associated with his sensations of chest pressure/pounding at times) GI Denies abdominal pain, Denies constipation, Denies dysphagia, Denies heartburn, Denies diarrhea, Denies nausea, Denies odynophagia and Denies vomiting Denies no additional complaints, Denies dysuria, Denies nocturia and Denies urinary frequency Musc Reports back pain (over the lower back - chronic) Neuro Denies dizziness and Denies headache(s) Psych Reports anxiety (feels stressed with his 's multiple health conditions) Endo Reports fatigue and Reports palpitations (often feels a pounding sensation in his chest) Physical exam (Primary Care) Vital Signs: Last Vital Signs Pulse 70 11/17/22 16:23 BP 136/72 11/17/22 16:23 Pulse Ox 97 11/17/22 16:23 Oxygen Delivery Method Room Air 11/17/22 16:23 BMI result Body Mass Index 24.2 Tobacco/Smoking Status: Tobacco use Status Tobacco use date assessed 11/17/22 11/17/22 16:28 Patient Tobacco Use Status Former Tobacco user 11/17/22 16:28 e-Cigarette/Vaping Use Never Used 11/17/22 16:28 PHQ-9: PHQ-9 Score PHQ-9: Total score 9 11/17/22 16:50 Depression Screening Interpretation: Positive Depression Screening Follow-up: Existing condition and In treatment Thrive Assessment: Date of Thrive Assessment Date Thrive assessed 11/17/22 11/17/22 16:28 Currently or been in a relationship where the following occur: no concerns reported Const General: no acute distress, alert and anxious HENMT Ears: TM's normal bilaterally and EAC's normal Throat: Yes posterior oropharynx normal and Yes tonsils normal (no TP congestion noted) Neck Neck: Yes no lymphadenopathy and Yes supple Resp Auscultation: clear to auscultation bilaterally, no rales and no wheezes Cardio Rate: regular rate Rhythm: regular rhythm Heart sounds: Murmur heart sound present systolic early and IV/ GI Palpation (GI): Soft to palpation and nontender Auscultation: normal bowel sounds Back/Spine/Pelvis Thoracic/Lumbar Spine: lumbar spinal tenderness Extrem General: Yes no clubbing, cyanosis or edema Right lower extremity: foot Results Reviewed Results Reviewed: Laboratory Tests 11/12/22 08:45 WBC 5.7 Hgb 12.9 L Hct 39.0 L Plt Count 82 L Sodium 143 Potassium 4.3 Creatinine 1.08 Estimated GFR > 60 Fasting Glucose 96 Calcium 9.3 AST 51 H ALT 48 H Triglycerides 59 Cholesterol 118 LDL Cholesterol, Calc 58 HDL Cholesterol 49 25-OH Vitamin D Total 48.6 TSH 3.86 Urine pH 6.0 Ur Specific [place] 1.025 Urine Protein 30 (1+) H Urine Glucose (UA) Negative Urine Blood Negative Assessment and Plan Assessment & Plan (1) Preoperative examination: Code(s): Z01.818 - Encounter for other preprocedural examination Plan: Results of his labs done a few days ago reviewed and discussed with patient He is currently complaining of some ongoing chest issues, including frequent pounding sensation in his chest that are occasionally associated with chest pressure/discomfort and shortness of breath Patient himself is concerned as to whether he should proceed with his eyelid surgery considering his current symptoms Advised that we will hold off on clearing him for surgery until we can get his symptoms clarified further (2) Dermatochalasis of both upper eyelids: Code(s): H02.831 - Dermatochalasis of right upper eyelid; H02.834 - Dermatochalasis of left upper eyelid Plan: He is currently scheduled for blepharoplasty of both upper eyelids under MAC on 11/29/22 with [facility] (3) Chest discomfort: Code(s): R07.89 - Other chest pain Plan: Patient states that he has been experiencing frequent and recurrent symptoms chest discomfort with frequent pounding sensation in his chest that are occasionally associated with some shortness of breath He had a normalmyocardial perfusion study done earlier this year in April 2022 - Myocardial perfusion imaging study shows likely normal myocardial perfusion. Gated LVEF is 62% during stress and 68% during rest Carotid ultrasound done also came back normal in May 2022 Due to his recurrent complaints, will send him for some additional studies, including labs, EKG and a repeat echocardiogram HOOD for further evaluation He is scheduled to see Cardiology early next month and he will discuss his symptoms further with Cardiology as well then (4) Coronary artery disease: Comment: S/P CABG (5-vessel) in 2003 Code(s): I25.10 - Atherosclerotic heart disease of [place] coronary artery without angina pectoris Qualifiers: Coronary Disease-Associated Artery/Lesion type: [place] artery [place] vs. transplanted heart: [place] heart Associated angina: without angina Qualified Code(s): I25.10 - Atherosclerotic heart disease of [place] coronary artery without angina pectoris Plan: S/P CABG (5-vessel) in 2003 Continue Aspirin 81 mg QD Follow-up with cardiology as scheduled (5) Pure hypercholesterolemia: Code(s): E78.00 - Pure hypercholesterolemia, unspecified Plan: Reinforced low cholesterol diet Continue Rosuvastatin 40 mg QD and Ezetimibe 10 mg QD (6) Benign essential hypertension: Code(s): I10 - Essential (primary) hypertension Plan: Reinforced low sodium diet - goal is systolic BP of at least 140 to 150 mm or less He was on Lisinopril 2.5 mg QD previously but stopped taking it after he developed recurrent dizziness while on the Rx (7) GERD without esophagitis: Code(s): K21.9 - Gastro-esophageal reflux disease without esophagitis Plan: Dietary restrictions reinforced Continue Omeprazole 20 mg QD (8) Lumbar degenerative disc disease: Code(s): M51.36 - Other intervertebral disc degeneration, lumbar region Plan: Reinforced activity and weight-lifting restrictions States that he is still able to put up with his low back pain, which he's had for years Repeat lumbar spine x-rays done last year revealed (+) dextrocurvature of the lumbar spine centered at the L2 vertebral body and minimal grade 1 anterolisthesis of L4 on L5 that are unchanged from previous. There are also multilevel degenerative disc disease and bilateral facet arthropathy that have slightly progressed compared to the prior examination Patient has been to physical therapy in the past with only partial improvement of his low back pain; states that he continues to do the back exercises and stretching that he was taught by physical therapy previously on a regular basis help manage his back pain Patient advised that if his back pain persist or continues to get worse, we can consider referring him back to physical therapy or send him for an MRI of the lumbar spine for further evaluation (9) Allergic rhinitis: Code(s): J30.9 - Allergic rhinitis, unspecified Qualifiers: Allergic rhinitis trigger: unspecified Allergic rhinitis seasonality: unspecified Qualified Code(s): J30.9 - Allergic rhinitis, unspecified Plan: Continue Loratadine 10 mg QD PRN (10) Vitamin D deficiency: Code(s): E55.9 - Vitamin D deficiency, unspecified Plan: Continue OTC Vitamin D3 2000 units QD (11) Benign prostatic hyperplasia: Code(s): N40.0 - Benign prostatic hyperplasia without lower urinary tract symptoms Qualifiers: Lower urinary tract symptom presence: unspecified whether lower urinary tract symptoms present Qualified Code(s): N40.0 - Benign prostatic hyperplasia without lower urinary tract symptoms Plan: Continue Terazosin 5 mg Q HS Follow-up with urology as scheduled (12) Insomnia: Code(s): G47.00 - Insomnia, unspecified Qualifiers: Insomnia type: unspecified Qualified Code(s): G47.00 - Insomnia, unspecified Plan: Sleep hygiene reinforced Continue Zolpidem 10 mg Q HS PRN (13) Anxiety: Code(s): F41.9 - Anxiety disorder, unspecified Plan: Patient is advised again that a lot of his current symptoms are most likely anxiety and stress related Continue Sertraline 25 mg QD for now - reminded that we can adjust his dose further later on if necessary Plan Follow up as scheduled in a couple of weeks Will hold off on clearing him for surgery until we can get some workups done to further clarify his current chest issues and discomfort Orders: Orders ECG 12 lead EKG 11/17/22 R07.89 - Other chest pain Troponin-I High Sensitivity 11/17/22 R07.89 - Other chest pain B Type Natriuretic Peptide 11/17/22 I50.9 - Heart failure, unspecified, R07.89 - Other chest pain Complete Blood Count Auto Diff 11/17/22 R07.89 - Other chest pain CA echo transthoracic complete 11/17/22 R06.09 - Other forms of dyspnea, R07.89 - Other chest pain Comprehensive Met. Panel 11/17/22 R07.89 - Other chest pain Coding Level of Care Code Est Pt Level 4 (09080) Diagnoses Preoperative examination Z01.818 Dermatochalasis of both upper eyelids H02.831; H02.834 Chest discomfort R07.89 Coronary artery disease involving [place] coronary artery of [place] heart without angina pectoris I25.10 Coronary Disease-Associated Artery/Lesion type: [place] artery [place] vs. transplanted heart: [place] heart Associated angina: without angina Pure hypercholesterolemia E78.00 Benign essential hypertension I10 GERD without esophagitis K21.9 Lumbar degenerative disc disease M51.36 Allergic rhinitis, unspecified seasonality, unspecified trigger J30.9 Allergic rhinitis trigger: unspecified Allergic rhinitis seasonality: unspecified Vitamin D deficiency E55.9 Benign prostatic hyperplasia, unspecified whether lower urinary tract symptoms present N40.0 Lower urinary tract symptom presence: unspecified whether lower urinary tract symptoms present Insomnia, unspecified type G47.00 Insomnia type: unspecified Anxiety F41.9
== END 2022-11-17 17:02 | disposition home or self-care (01) ==
PROVIDERS: PCP Internal Medicine; Visit Provider Internal Medicine
DX: Z01.818 Encounter for other preprocedural examination (principal); H02.831 Dermatochalasis of right upper eyelid; H02.834 Dermatochalasis of left upper eyelid; R07.89 Other chest pain; I25.10 Atherosclerotic heart disease of native coronary artery without angina pectoris; E78.00 Pure hypercholesterolemia, unspecified; I10 Essential (primary) hypertension; K21.9 Gastro-esophageal reflux disease without esophagitis; M51.36 Other intervertebral disc degeneration, lumbar region; J30.9 Allergic rhinitis, unspecified; E55.9 Vitamin D deficiency, unspecified; N40.0 Benign prostatic hyperplasia without lower urinary tract symptoms; G47.00 Insomnia, unspecified; F41.9 Anxiety disorder, unspecified
CPT/HCPCS: 99214

== ENCOUNTER 2022-11-18 08:49 | Outpatient (REF) | payer MEDICARE, SELFPAY ==
[2022-11-18 09:27] LABS: MANUAL DIFF FLAG NO
[2022-11-18 09:48] LABS: Basophils Percent Auto 0.7 % (0-2); Eosinophils Absolute Auto 0.3 X10*3/uL (0.0-0.4); Eosinophils Percent Auto 4.7 % (0-4); Hematocrit 36.8 % (42.0-52.0); Imm Gran Abs Auto 0.01 X10*3/uL (0.00-0.03); Imm Gran Pct Auto 0.2 % (0.0-0.4); Lymphocytes Absolute Auto 1.3 X10*3/uL (1.2-4.9); Lymphocytes Percent Auto 23.6 % (20-40); Mean Corpuscular HGB Conc 32.6 g/dl (31.0-36.0); Mean Corpuscular Hemoglobin 31.7 pg (27.0-33.0); Mean Corpuscular Volume 97.1 fL (80.0-98.0); Mean Platelet Volume 11.9 fL (9.4-12.4); Monocytes Absolute Auto 0.6 X10*3/uL (0.1-1.2); Monocytes Percent Auto 10.3 % (2-11); Neutrophils Absolute Auto 3.4 x10*3/uL (2.0-8.3); Neutrophils Percent Auto 60.5 % (45-73); Red Blood Count 3.79 X10*6/uL (4.60-5.80); Red Cell Distribution Width 13.6 % (11.0-16.0); White Blood Count 5.6 X10*3/uL (4.8-10.8)
[2022-11-18 09:49] LABS: Platelet Count 84 X10*3/uL (160-400)
[2022-11-18 10:09] LABS: Alanine Aminotransferase 52 U/L (0-40); Albumin Level 3.8 g/dL (3.5-5.0); Alkaline Phosphatase 64 U/L (39-117); Anion Gap 12 (12-20); Aspartate Amino Transferase 46 U/L (5-37); Bilirubin Total 0.7 mg/dL (0.0-1.0); Blood Urea Nitrogen 21 mg/dL (9-16); Calcium 9.1 mg/dL (8.4-10.2); Carbon Dioxide 24 mmol/L (22-29); Chloride 110 mmol/L (96-108); Estimated Glomerular Filt Rate > 60; Glucose Random 134 mg/dL (60-115); Potassium 4.2 mmol/L (3.3-5.1); Sodium 142 mmol/L (135-145)
== END 2022-11-18 08:50 | disposition home or self-care (01) ==
LOC: HO.LAB 08:49
PROVIDERS: PCP Internal Medicine; Visit Provider Internal Medicine
DX: R07.89 Other chest pain (principal); I50.9 Heart failure, unspecified
CPT/HCPCS: 36415; 80053; 83880; 84484; 85025; 93005

== ENCOUNTER → 2022-11-19 10:45 | Outpatient (REF) | payer MEDICARE, SELFPAY | LOC: HO.CARD 10:45 | PROVIDERS: Visit Provider Internal Medicine | DX: R07.89 Other chest pain (principal); R06.09 Other forms of dyspnea | CPT/HCPCS: 93306 ==

== ENCOUNTER → 2022-11-19 10:49 | Outpatient (BNV) | payer MEDICARE, SELFPAY | PROVIDERS: Visit Provider Internal Medicine | DX: I35.1 Nonrheumatic aortic (valve) insufficiency (principal) | CPT/HCPCS: 93306 ==

== ENCOUNTER 2022-11-23 13:52 | Outpatient (REF) | payer MEDICARE, SELFPAY ==
[2022-11-23 15:35] LABS: Prothrombin Time 12.2 SEC (11.1-13.3)
[2022-11-25 13:03] LABS: CRP High Sensitivity <0.3 mg/L
== END 2022-11-23 13:53 | disposition home or self-care (01) ==
LOC: HO.LAB 13:52
PROVIDERS: PCP Internal Medicine; Visit Provider Internal Medicine Cardiovascular Disease
DX: I35.1 Nonrheumatic aortic (valve) insufficiency (principal); R00.2 Palpitations
CPT/HCPCS: 36415; 85610; 86141; 87040; 93005; 99212

== ENCOUNTER 2022-11-23 13:52 | Outpatient (AMB) | payer MEDICARE, SELFPAY ==
[2022-11-23 13:57] VITALS: BP 126/50; PULSE 74; BMI 23.9
--- NOTE | 2022-11-23 13:57 | MHC.OFFVIS ---
Intake Vital Signs 11/23/22 13:57 Height 6 ft Weight 176 lb 5.917 oz BMI 23.9 BP 126/50 L Blood Pressure Location Lt brachial Position Sitting Pulse 74 Intake Visit Reasons: ? TAVR, cath, JODY Intake Note: Follow-up Echo results ? 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: No Allergies No Known Allergies Allergy (Verified 11/18/22 05:05) Medication List - Last Reconciled 11/23/22 by Francisco Simmons MD amoxicillin 2,000 mg (4 x 500 mg) PO ONCE aspirin (Ecotrin Low Strength) 81 mg PO DAILY brimonidine 0.2% 1 drp ophthalmic (eye) bumetanide 1 mg orally 1 tablet in am and 1/2 tablet at noon time 90 days ezetimibe (Zetia) 10 mg PO DAILY 90 days ibuprofen 800 mg PO TID omeprazole 20 mg PO DAILY rosuvastatin 40 mg PO DAILY sertraline 25 mg PO DAILY 30 days terazosin 5 mg PO DAILY HPI HPI Comments History of Present Illness Details 87-year-old male who is a patient of Dr Liz. He is here for new diagnosis of severe AR involving bioprosthetic aortic valve. He had CABG x 5 and AVR 18 years ago. Recently he has been experiencing some SOB and chest pains as well as some pounding sensation in the chest. He is saying the pounding sensation happens when he is laying down at night. He is saying he does not get significant FELIX but has been getting some chest pains. He is somewhat vague about the chest pains. He has no orthopnea or PND. No peripheral edema. He has no fever, chills or poor appetite. He has been using the amoxicillin before dental work up. His echo was personally reviewed and is clearly showing valve prolapse and severe AI. He has no signs/symptoms of endocarditis. [facility] Medical History (Updated 11/23/22 @ 14:37 by Francisco Simmons MD) Palpitations Dermatochalasis of both upper eyelids Vitamin D deficiency Dizziness Overweight (BMI 25.0-29.9) Insomnia Sensorineural hearing loss (SNHL) of both ears Osteoarthritis Allergic rhinitis GERD without esophagitis Benign prostatic hyperplasia Peripheral neuropathy Lumbar degenerative disc disease Bilateral lower extremity edema Coronary artery disease Benign essential hypertension Pure hypercholesterolemia Surgical History S/P CABG x 5 History of aortic valve replacement with bioprosthetic valve Family History Father CVD (cardiovascular disease) Mother Medical history unknown Social History Housing: House Alcohol intake: current Alcohol intake frequency: holidays/special occasions only Alcohol type: wine Patient Tobacco Use Status: Former Tobacco user e-Cigarette/Vaping Use: Never Used Second Hand Smoke Exposure: Yes service: Yes Current occupational status: retired Cognitive needs: No Hearing needs: No Vision needs: Yes Review of Systems Const Denies chills, Denies fatigue, Denies fever(s), Denies frequent falls, Denies weakness, Denies weight gain and Denies weight loss ENT Denies dizziness Card Denies chest pain, Denies leg edema, Denies lightheadedness, Denies palpitations, Denies dyspnea, Denies dyspnea on exertion, Denies orthopnea and Denies other (loss of consciousness) Resp Denies cough, Denies dyspnea and Denies dyspnea on exertion GI Denies hematochezia and Denies change in stool character Musc Denies abnormal gait, Denies muscle weakness, Denies numbness, Denies radiating pain into limb and Denies tingling Neuro Denies abnormal gait, Denies dizziness, Denies frequent falls, Denies numbness, Denies tingling and Denies weakness Endo Denies fatigue and Denies palpitations Physical Exam Vital Signs: Last Vital Signs Pulse 74 11/23/22 13:57 BP 126/50 L 11/23/22 13:57 BMI result Body Mass Index 23.9 GENERAL APPEARANCE: in no acute distress, pleasant. NECK: no carotid bruit, no jugular venous distention. SKIN: no suspicious lesions, warm and dry. HEART: systolic murmur aortic area, early diastolic murmur left sternal border, regular rate and rhythm. LUNGS: clear to auscultation bilaterally. ABDOMEN: soft, nontender. EXTREMITIES: no edema. PERIPHERAL PULSES: equal. NEUROLOGIC: No gross deficits, AAO X 3 Office Procedures EKG Details: NSR with sinus arrhythmia, nonspecific T wave changes, QTc 424 msec. [id number], Complete Assessment & Plan Assessment & Plan (1) Severe aortic regurgitation: Code(s): I35.1 - Nonrheumatic aortic (valve) insufficiency Plan: 87-year-old gentleman with known h/o CAD s/p CABG and bioprosthetic AVR with 25 mm CE Bovine valve. He is here for new diagnosis of severe AI. The bioprosthetic valve has leaflet prolapse and severe aortic valve insufficiency. The left ventricle appears to be moderately dilated with normal function. Clinically he is not in heart failure. He has an elevated BNP which was recently done by primary care physician. He has been experiencing chest pains. He also is complaining of some palpitations. We will arrange a 7 day Holter monitor. I am which arrange the left and right heart catheterization. Will see if we can do aortography to quantify the severe AI also. I will also send us set of blood cultures and check CRP just in case that the valve dysfunction is not due to endocarditis. If blood cultures are positive then will consider JODY to further understand the valve and obviously will lead antibiotics. I think the chances of this being endocarditis is low and I think this is just degeneration of the valve. He takes care of his and his daughter who helps them is on vacation. He is asking whether he can have cardiac catheterization done by mid next week. We will arrange it for next . He will need assessment by Cardiothoracic surgery and will need a TAVR protocol CT to understand his TAVR candidacy. Thank you for allowing me to participate in the care of your patient. Please feel free to contact me if you have any questions. Orders: Orders ECG 7 day holter monitor Today R00.2 - Palpitations Blood Culture X2 Today I35.1 - Nonrheumatic aortic (valve) insufficiency CRP High Sensitivity Today I35.1 - Nonrheumatic aortic (valve) insufficiency Cardiac Cath TOPHER Diagnostic Today I35.1 - Nonrheumatic aortic (valve) insufficiency Prothrombin Time INR Today I35.1 - Nonrheumatic aortic (valve) insufficiency Coding Level of Care Code Est Pt Level 5 (70916) Diagnoses Severe aortic regurgitation I35.1 CPT Codes EKG - CPT: 64770-[id number], Complete ([id number])
== END 2022-11-23 14:54 | disposition home or self-care (01) ==
PROVIDERS: Visit Provider Internal Medicine Cardiovascular Disease
DX: I35.1 Nonrheumatic aortic (valve) insufficiency (principal); Z95.3 Presence of xenogenic heart valve; R00.2 Palpitations
CPT/HCPCS: 93010; 99215

== ENCOUNTER → 2022-12-02 23:59 | Outpatient (BNV) | payer MEDICARE, SELFPAY | PROVIDERS: PCP Internal Medicine; Visit Provider Internal Medicine Cardiovascular Disease | DX: I35.1 Nonrheumatic aortic (valve) insufficiency (principal); I20.89 Other forms of angina pectoris | CPT/HCPCS: 93461; 99152 ==

== ENCOUNTER → 2022-12-07 09:36 | Outpatient (REF) | payer MEDICARE, SELFPAY ==
--- NOTE | 2022-12-07 09:38 | HM_ITS ---
* Total monitoring time 7 days. * Underlying rhythm is sinus with an average rate of 69/Min. Range 49 to 116/Min. * Occasional ventricular ectopy with a burden of 0.6%. Evidence of couplets, triplets, bigeminy and trigeminy. Longest run 5 beats. * Occasional supraventricular ectopy with a burden of 0.9%. Very brief runs noted. * No significant pauses or AV blocks. * Chest pain in patient diary correlates with sinus rhythm, ventricular ectopy. MTDD
== END ==
LOC: HO.CARD 09:36
PROVIDERS: Visit Provider Internal Medicine Cardiovascular Disease
DX: R00.2 Palpitations (principal)
CPT/HCPCS: 93242

== ENCOUNTER → 2022-12-07 09:38 | Outpatient (BNV) | payer MEDICARE, SELFPAY | PROVIDERS: Visit Provider Internal Medicine | DX: I47.10 Supraventricular tachycardia, unspecified (principal) | CPT/HCPCS: 93244 ==

== ENCOUNTER 2022-12-08 08:51 | Outpatient (AMB) | payer MEDICARE, SELFPAY ==
[2022-12-08 08:53] VITALS: BP 120/52; PULSE 77; O2SAT 98; BMI 24.0
--- NOTE | 2022-12-08 08:53 | A.OFFPC_ITS ---
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 Accompanied by: Self / Same As Patient Allergies No Known Allergies Allergy (Verified 12/08/22 09:30) Medication List - Last Reconciled 12/08/22 by Ceferino Braxton MD amoxicillin 2,000 mg (4 x 500 mg) PO ONCE aspirin (Ecotrin Low Strength) 81 mg PO DAILY brimonidine 0.2% 1 drp ophthalmic (eye) bumetanide 1 mg orally 1 tablet in am and 1/2 tablet at noon time 90 days ezetimibe (Zetia) 10 mg PO DAILY 90 days ibuprofen 800 mg PO TID omeprazole 20 mg PO DAILY rosuvastatin 40 mg PO DAILY sertraline 25 mg PO DAILY 30 days terazosin 5 mg PO DAILY Tobacco use date assessed: 12/08/22 Fall risk assessment: No Falls in past year Last assessed Fall Risk: 12/08/22 Dental Screening Dental Screen Date: 12/08/22 Did you have a dental visit in the last 12 months?: No Did you have a dental problem in the last 6 months where you did not have access to dental care?: No Was dental information given to patient?: No HPI CAD, hyperlipidemia, HTN, lumbar DDD HPI Details Patient comes in today for his follow up visit States that he is still experiencing on and off sensations of chest pressure and some SOB, as well as sensations that feel like his heart is pounding He currently has a 7 day Holter monitor on (placed yesterday) Echocardiogram done a few weeks ago revealed (+) bioprosthetic aortic valve with severe aortic valve regurgitation - suspect flail leaflet The left ventricular systolic function is normal with a calculated ejection fraction of 62%, with moderately increased left ventricular cavity size There is also a mild dilatation of the ascending aorta measuring 4.00 cm noted - was previously at 3.8 cm back in March 2022 Patient also underwent coronary angiogram last week on 12/02/2022, which revealed 80% stenosis of the proximal LAD, LMCA and ostial diagonal, 70% stenosis of the proximal Cx and 99% stenosis of the ostial RCA He is scheduled to see cardiothoracic surgery at [facility] sometime in the next couple of weeks - will need further assessment for TAVR candidacy and if apprropriate, should undergo TAVR as well as CABG or PCI for his coronary artery disease [facility] Medical History Palpitations Dermatochalasis of both upper eyelids Vitamin D deficiency Dizziness Overweight (BMI 25.0-29.9) Insomnia Sensorineural hearing loss (SNHL) of both ears Osteoarthritis Allergic rhinitis GERD without esophagitis Benign prostatic hyperplasia Peripheral neuropathy Lumbar degenerative disc disease Bilateral lower extremity edema Coronary artery disease Benign essential hypertension Pure hypercholesterolemia Surgical History S/P CABG x 5 History of aortic valve replacement with bioprosthetic valve Family History Father CVD (cardiovascular disease) Mother Medical history unknown Social History Housing: House Alcohol intake: current Alcohol intake frequency: holidays/special occasions only Alcohol type: wine Patient Tobacco Use Status: Former Tobacco user e-Cigarette/Vaping Use: Never Used Second Hand Smoke Exposure: Yes service: Yes Current occupational status: retired Cognitive needs: No Hearing needs: No Vision needs: Yes Questionnaire PHQ-9 Over the last 2 weeks, how often have you been bothered by any of the following problems? 1. Little interest or pleasure in doing things: more than half the days 2. Feeling down, depressed, or hopeless: more than half the days 3. Trouble falling or staying asleep, or sleeping too much: more than half the days 4. Feeling tired or having little energy: more than half the days 5. Poor appetite or overeating: several days 6. Feeling bad about yourself - or that you are a failure or have let yourself or your family down: not at all 7. Trouble concentrating on things, such as reading the newspaper or watching television: not at all 8. Moving or speaking so slowly that other people could have noticed. Or the opposite - being so fidgety or restless that you have been moving around a lot more than usual: not at all 9. Thoughts that you would be better off or of hurting yourself in some way: not at all Total score: 9 Depression Screening Interpretation: Positive Depression Screening Follow-up: Existing condition and In treatment Depression Screening Done: Yes 48498 - PHQ-9 Billing: Yes Source: Developed by Drs. Patrick Osorio, Lashae Davila, Krishna Webster and colleagues, with an educational kacie from [employer]. Thrive Questionnaire Date Thrive assessed: 12/08/22 I am a: Patient What is your living situation today?: I have a steady place to live Within the past 12 months, did the food you bought not last and you didn't have the money to get more?: Never true Within the past 12 months, did you worry whether your food would run out before you got money to buy more?: Never true Do you have trouble paying for medicines?: No Do you have trouble getting transportation to medical appointments?: No Do you have trouble paying your heating and electricity bill?: No Do you have trouble taking care of your child, family member or friend?: No Do you have trouble with day-to-day activities such as bathing, preparing meals, shopping, managing finances, etc.?: No Are you currently unemployed and looking for a job?: No Are you interested in more education?: No Please select the resources that you would like help with: None Currently or been in a relationship where the following occur: no concerns reported AUDIT C Alcohol Use Questionnaire (AUDIT-C) 1. How often do you have a drink containing alcohol?: Monthly or less 2. How many drinks containing alcohol do you have on a typical day when you are drinking?: 1 or 2 3. How often do you have six or more drinks on one occasion?: Never Total Score: 1 Score Reviewed/Action Taken: Yes CHAD-7 AMB Questionnaire CHAD-7 Date CHAD - 7 assessed: 12/08/22 Feeling nervous, anxious, or on edge: 0 = Not at all Not being able to stop or control worryin = Not at all Worrying too much about different things: 0 = Not at all Trouble relaxin = Not at all Being so restless that it is hard to sit still: 0 = Not at all Becoming easily annoyed or irritable: 0 = Not at all Feeling afraid as if something awful might happen: 0 = Not at all Total CHAD-7 score (0-4 normal; 5-9 mild; 10-14 moderate; 15-21 severe): 0 Source: Developed by Drs. Patrick Osorio, Lashae Davila, Krishna Webster and colleagues, with an educational kacie from [employer]. Review of Systems Const Reports fatigue, Denies fever(s) and Denies headache(s) ENT Denies dysphagia, Denies dizziness, Denies headache(s) and Denies sore throat Card Denies chest pain with activity (but reports (+) chest pressure/discomfort at times), Reports palpitations (often feels a pounding sensation in his chest) and Reports dyspnea (associated with his sensations of chest pressure/pounding at times) Resp Denies cough, Denies pain on inspiration and Reports dyspnea (associated with his sensations of chest pressure/pounding at times) GI Denies abdominal pain, Denies constipation, Denies dysphagia, Denies diarrhea, Denies nausea and Denies vomiting Denies dysuria, Denies nocturia and Denies urinary frequency Musc Reports back pain (over the lower back - chronic) Neuro Denies dizziness and Denies headache(s) Psych Reports anxiety (feels stressed with his 's multiple health conditions) Endo Reports fatigue and Reports palpitations (often feels a pounding sensation in his chest) Physical exam (Primary Care) Vital Signs: Last Vital Signs Pulse 77 12/08/22 08:53 BP 120/52 L 12/08/22 08:53 Pulse Ox 98 12/08/22 08:53 Oxygen Delivery Method Room Air 12/08/22 08:53 BMI result Body Mass Index 24.0 Tobacco/Smoking Status: Tobacco use Status Tobacco use date assessed 12/08/22 12/08/22 08:59 Patient Tobacco Use Status Former Tobacco user 12/08/22 08:59 e-Cigarette/Vaping Use Never Used 12/08/22 08:59 PHQ-9: PHQ-9 Score PHQ-9: Total score 9 12/08/22 08:59 Depression Screening Interpretation: Positive Depression Screening Follow-up: Existing condition and In treatment Thrive Assessment: Date of Thrive Assessment Date Thrive assessed 12/08/22 12/08/22 08:59 Currently or been in a relationship where the following occur: no concerns reported Const General: no acute distress, alert and anxious HENMT Ears: TM's normal bilaterally and EAC's normal Throat: Yes posterior oropharynx normal and Yes tonsils normal (no TP congestion noted) Neck Neck: Yes no lymphadenopathy and Yes supple Resp Auscultation: clear to auscultation bilaterally, no rales and no wheezes Cardio Rate: regular rate Rhythm: regular rhythm Heart sounds: Murmur heart sound present systolic early and IV/ GI Palpation (GI): Soft to palpation and nontender Auscultation: normal bowel sounds Back/Spine/Pelvis Thoracic/Lumbar Spine: lumbar spinal tenderness Extrem General: Yes no clubbing, cyanosis or edema Results Reviewed Results Reviewed: Laboratory Tests 11/18/22 09:27 WBC 5.6 Hgb 12.0 L Hct 36.8 L Plt Count 84 L Sodium 142 Potassium 4.2 Creatinine 1.04 Estimated GFR > 60 Random Glucose 134 H Calcium 9.1 AST 46 H ALT 52 H B-Natriuretic Peptide 912 H Laboratory Tests 11/12/22 08:45 Triglycerides 59 Cholesterol 118 LDL Cholesterol, Calc 58 HDL Cholesterol 49 Assessment and Plan Assessment & Plan (1) Coronary artery disease: Comment: S/P CABG (5-vessel) in 2003 Code(s): I25.10 - Atherosclerotic heart disease of [place] coronary artery without angina pectoris Qualifiers: Coronary Disease-Associated Artery/Lesion type: [place] artery [place] vs. transplanted heart: [place] heart Associated angina: without angina Qualified Code(s): I25.10 - Atherosclerotic heart disease of [place] coronary artery without angina pectoris Plan: S/P CABG (5-vessel) in 2003 Coronary angiogram done last week on 12/02/2022 revealed 80% stenosis of the pro ximal LAD, LMCA and ostial diagonal, 70% stenosis of the proximal Cx and 99% stenosis of the ostial RCA He is scheduled to see cardiothoracic surgery at [facility] sometime in the next couple of weeks for further Tx and intervention/recommendations Continue Aspirin 81 mg QD (2) Severe aortic regurgitation: Code(s): I35.1 - Nonrheumatic aortic (valve) insufficiency Plan: Echocardiogram done a few weeks ago on 11/19/2022 revealed (+) bioprosthetic aortic valve with severe aortic valve regurgitation - suspect flail leaflet The left ventricular systolic function is normal with calculated ejection fraction at 62%; there is also moderately increased left ventricular cavity size and a mild dilatation of the ascending aorta measuring 4.00 cm noted - this was previously at 3.8 cm back in March 2022 He is currently undergoing further assessment and work ups for planned TAVR (3) Pure hypercholesterolemia: Code(s): E78.00 - Pure hypercholesterolemia, unspecified Plan: Results of his labs done a few weeks ago reviewed and discussed with patient - lipids are at goal Reinforced low cholesterol diet Continue Rosuvastatin 40 mg QD and Ezetimibe 10 mg QD (4) Benign essential hypertension: Code(s): I10 - Essential (primary) hypertension Plan: Reinforced low sodium diet - goal is systolic BP of at least 140 to 150 mm or less He was on Lisinopril 2.5 mg QD previously but stopped taking it after he developed recurrent dizziness while on the Rx (5) GERD without esophagitis: Code(s): K21.9 - Gastro-esophageal reflux disease without esophagitis Plan: Dietary restrictions reinforced Continue Omeprazole 20 mg QD (6) Lumbar degenerative disc disease: Code(s): M51.36 - Other intervertebral disc degeneration, lumbar region Plan: Reinforced activity and weight-lifting restrictions States that he is still able to put up with his low back pain, which he's had for years Repeat lumbar spine x-rays done last year revealed (+) dextrocurvature of the lumbar spine centered at the L2 vertebral body and minimal grade 1 anterolist hesis of L4 on L5 that are unchanged from previous. There are also multilevel degenerative disc disease and bilateral facet arthropathy that have slightly progressed compared to the prior examination He has been to physical therapy in the past with only partial improvement of his low back pain; states that he continues to do the back exercises and stretching that he was taught by physical therapy previously on a regular basis help manage his back pain Patient has been advised that if his back pain persist or continues to get worse, we can consider referring him back to physical therapy or send him for an MRI of the lumbar spine for further evaluation (7) Insomnia: Code(s): G47.00 - Insomnia, unspecified Qualifiers: Insomnia type: unspecified Qualified Code(s): G47.00 - Insomnia, unspecified Plan: Sleep hygiene reinforced Continue Zolpidem 10 mg Q HS PRN (8) Anxiety: Code(s): F41.9 - Anxiety disorder, unspecified Plan: Continue Sertraline 25 mg QD Plan Follow up in 2 months Coding Level of Care Code Est Pt Level 4 (47947) Diagnoses Coronary artery disease involving [place] coronary artery of [place] heart without angina pectoris I25.10 Coronary Disease-Associated Artery/Lesion type: [place] artery [place] vs. transplanted heart: [place] heart Associated angina: without angina Severe aortic regurgitation I35.1 Pure hypercholesterolemia E78.00 Benign essential hypertension I10 GERD without esophagitis K21.9 Lumbar degenerative disc disease M51.36 Insomnia, unspecified type G47.00 Insomnia type: unspecified Anxiety F41.9
== END 2022-12-08 09:24 | disposition home or self-care (01) ==
PROVIDERS: PCP Internal Medicine; Visit Provider Internal Medicine
DX: I25.10 Atherosclerotic heart disease of native coronary artery without angina pectoris (principal); I35.1 Nonrheumatic aortic (valve) insufficiency; E78.00 Pure hypercholesterolemia, unspecified; I10 Essential (primary) hypertension; K21.9 Gastro-esophageal reflux disease without esophagitis; M51.36 Other intervertebral disc degeneration, lumbar region; G47.00 Insomnia, unspecified; F41.9 Anxiety disorder, unspecified
CPT/HCPCS: 99214

== ENCOUNTER 2022-12-16 09:19 | Outpatient (AMB) | payer MEDICARE, SELFPAY ==
--- NOTE | 2022-12-16 09:25 | A.OFFVIS_ITS ---
Intake Vital Signs 12/16/22 09:26 Height 6 ft Weight 174 lb 2.643 oz BMI 23.6 BP 120/78 Blood Pressure Location Lt brachial Position Sitting Pulse 66 Intake Visit Reasons: 6 mth f/up/ fu card cath Intake Note: 6 month follow-up Cardiac Cath c/o chest pain, palpitations, sob Proj Engineer Required: No Allergies No Known Allergies Allergy (Verified 12/08/22 09:30) Medication List - Last Reconciled 12/16/22 by Juan Alberto Liz MD amoxicillin 2,000 mg (4 x 500 mg) PO ONCE aspirin (Ecotrin Low Strength) 81 mg PO DAILY brimonidine 0.2% 1 drp ophthalmic (eye) bumetanide 1 mg orally 1 tablet in am and 1/2 tablet at noon time 90 days ezetimibe (Zetia) 10 mg PO DAILY 90 days ibuprofen 800 mg PO TID omeprazole 20 mg PO DAILY rosuvastatin 40 mg PO DAILY sertraline 25 mg PO DAILY 30 days terazosin 5 mg PO DAILY HPI HPI Comments History of Present Illness Details Patrick comes for follow-up. Recently had an echocardiogram which showed severe aortic regurgitation with dilated left ventricle due to a flail leaflet. This is due to failure of the bioprosthetic aortic valve, long-term. Patient has been evaluated by the valve team and is awaiting transcatheter aortic valve replacement. He is having symptoms of exertional chest pain shortness of breath and also feeling of pounding in his chest. He denies any orthopnea, PND. Does notices leg swelling at the end of the day but this usually dissipates by the morning time. His not having any significant progressive heart failure symptoms at this point in time. [facility] Medical History Palpitations Dermatochalasis of both upper eyelids Vitamin D deficiency Dizziness Overweight (BMI 25.0-29.9) Insomnia Sensorineural hearing loss (SNHL) of both ears Osteoarthritis Allergic rhinitis GERD without esophagitis Benign prostatic hyperplasia Peripheral neuropathy Lumbar degenerative disc disease Bilateral lower extremity edema Coronary artery disease Benign essential hypertension Pure hypercholesterolemia Surgical History S/P CABG x 5 History of aortic valve replacement with bioprosthetic valve Family History Father CVD (cardiovascular disease) Mother Medical history unknown Social History Housing: House Alcohol intake: current Alcohol intake frequency: holidays/special occasions only Alcohol type: wine Patient Tobacco Use Status: Former Tobacco user e-Cigarette/Vaping Use: Never Used Second Hand Smoke Exposure: Yes service: Yes Current occupational status: retired Cognitive needs: No Hearing needs: No Vision needs: Yes Review of Systems Const Denies chills, Denies fatigue, Denies fever(s), Denies frequent falls, Denies weakness, Denies weight gain and Denies weight loss ENT Denies dizziness Card Denies chest pain, Denies leg edema, Denies lightheadedness, Denies palpitations, Denies dyspnea, Denies dyspnea on exertion, Denies orthopnea and Denies other (loss of consciousness) Resp Denies cough, Denies dyspnea and Denies dyspnea on exertion GI Denies hematochezia and Denies change in stool character Musc Denies abnormal gait, Denies muscle weakness, Denies numbness, Denies radiating pain into limb and Denies tingling Neuro Denies abnormal gait, Denies dizziness, Denies frequent falls, Denies numbness, Denies tingling and Denies weakness Endo Denies fatigue and Denies palpitations Physical Exam Vital Signs: Last Vital Signs Pulse 66 12/16/22 09:26 BP 120/78 12/16/22 09:26 BMI result Body Mass Index 23.6 Const General: cooperative, comfortable, no acute distress, alert, awake, Physically active and well groomed Nutritional Appearance: average body habitus Orientation/consciousness: patient oriented x3 Limitations: no limitations Neck Neck: Yes trachea midline, Yes supple and Yes no JVD Chest Chest palpation & inspection: normal inspection of the chest and other (Well- healed sternotomy scar) Resp Effort & Inspection: normal respiratory effort Auscultation: clear to auscultation bilaterally Cardio Jugular venous distension: no JVD Palpation: abnormal PMI displaced PMI and other (Hyperdynamic) Rate: regular rate Rhythm: regular rhythm Heart sounds: S1 normal heart sound present, S2 normal heart sound present and Murmur heart sound present diastolic holo and at the left sternal border Bruits: carotid bruit on the left GI Auscultation: normal bowel sounds Skin General skin exam: no rashes or lesions noted Neuro General: patient oriented x3 and no focal motor deficits Extrem General: Yes no clubbing, cyanosis or edema Psych Appearance: grossly normal Affect: Anxious affect present Assessment & Plan Assessment & Plan (1) Severe aortic regurgitation: Code(s): I35.1 - Nonrheumatic aortic (valve) insufficiency Plan: Subacute and severe aortic regurgitation secondary to bioprosthetic valve failure which is sudden with LV dilatation. He is having symptoms related to it. No signs of heart failure at this point time. However like to repair is valve as soon as possible with percutaneous technique. Will discuss with valve team again to repair his valve as soon as possible probably next week. Discussed with the patient the need for this. He understands this very well. He is very com about it. We discussed about the technique of transcatheter ao rtic valve replacement which should improve his aortic regurgitation with valve in valve procedure. Follow-up 4 weeks after with an echocardiogram. Meanwhile will start on low-dose amlodipine therapy for afterload reduction. Advised to seek emergency care a call me with worsening symptoms as soon as possible. (2) Coronary artery disease: Comment: S/P CABG (5-vessel) in 2003 Code(s): I25.10 - Atherosclerotic heart disease of [place] coronary artery without angina pectoris Qualifiers: Coronary Disease-Associated Artery/Lesion type: [place] artery [place] vs. transplanted heart: [place] heart Associated angina: without angina Qualified Code(s): I25.10 - Atherosclerotic heart disease of [place] coronary artery without angina pectoris Plan: CAD status post coronary artery bypass grafting with recent cardiac catheterization with what appears to be [place] coronary disease with patent grafts. Continue aggressive risk factor modification. Continue high-intensity statin therapy along with ezetimibe therapy. Continue low-dose aspirin therapy for life. (3) (HFpEF) heart failure with preserved ejection fraction: Code(s): I50.30 - Unspecified diastolic (congestive) heart failure Plan: Heart failure with preserved ejection fraction secondary to prior stiff LV. Patient's like him to not tolerate sudden volume overload very well. Discuss with him and treatment would be for aortic valve replacement. Continue current diuretic regimen. Advised to call me with any worsening symptoms. Will follow up in the clinic in 6 weeks time, sooner p.r.n.. Thank you for allowing me to partake in his care Coding Level of Care Code Est Pt Level 4 (48474) Diagnoses Severe aortic regurgitation I35.1 Coronary artery disease involving [place] coronary artery of [place] heart without angina pectoris I25.10 Coronary Disease-Associated Artery/Lesion type: [place] artery [place] vs. transplanted heart: [place] heart Associated angina: without angina (HFpEF) heart failure with preserved ejection fraction I50.30
[2022-12-16 09:26] VITALS: BP 120/78; PULSE 66; BMI 23.6
== END 2022-12-16 09:56 | disposition home or self-care (01) ==
PROVIDERS: Visit Provider Internal Medicine Cardiovascular Disease
DX: I35.1 Nonrheumatic aortic (valve) insufficiency (principal); I25.10 Atherosclerotic heart disease of native coronary artery without angina pectoris; I50.30 Unspecified diastolic (congestive) heart failure
CPT/HCPCS: 99214

== ENCOUNTER → 2022-12-16 09:19 | Outpatient (BNVA) | payer MEDICARE, SELFPAY | PROVIDERS: Visit Provider Internal Medicine Cardiovascular Disease | DX: I35.1 Nonrheumatic aortic (valve) insufficiency (principal); I50.30 Unspecified diastolic (congestive) heart failure; I25.10 Atherosclerotic heart disease of native coronary artery without angina pectoris | CPT/HCPCS: 99212 ==

== ENCOUNTER → 2023-01-11 10:48 | Outpatient (REF) | payer MEDICARE, SELFPAY ==
--- NOTE | 2023-01-11 10:50 | CA_ITS ---
Transthoracic Echocardiogram Patient (Last, First, Middle): Patrick Magdaleno, Gender: Male Date of : 1935 Age: 87 Procedure Date: 01/11/2023 Procedure Type: Transthoracic Echocardiogram Location: OP Height: 182.88 cm Weight: 77.11 kg BSA: 1.99 m2 Heart Rate: bpm BP: 130 / 80 mmHg Head Of Marketing Analytics: TO Referring MD: Juan Alberto Liz MD Relay Tester: Juan Alberto Liz MD Symptoms: status post TAVR Study Quality: Adequate ECG Rhythm: Sinus Conclusions: - 1. Low normal LV ejection fraction with mild LVH with LVEF of 50-55% with impaired relaxation filling pattern 2. Normally function bioprosthetic aortic valve with mean gradient of 6 mmHg 3. Normal RV systolic pressure 4. No gross pericardial effusion Findings Left Ventricle Normal left ventricular cavity size. There is mildly increased left ventricular wall thickness. The left ventricular systolic function is low normal. The visually estimated ejection fraction is between 50-55%. Spectral Doppler is indicative of an impaired relaxation filling pattern. E/E prime ratio is between 8 and 15 consistent with indeterminate filling pressures. Peak GLS is -15.5%, which is mildly reduced. Wall Motion Rest Echo Findings The mid anteroseptal segment is hypokinetic. All other scored wall segments showed normal motion. Right Ventricle Normal right ventricular cavity size and systolic function. Atria The left atrium is mildly dilated. There is no evidence of interatrial shunt. The right atrium is likely dilated. Aortic Valve A bioprosthetic aortic valve is present. The prosthetic aortic valve appears to be functioning normally. The mean gradient is 6 mmHg. There is no aortic valve regurgitation. the bioprosthetic valve is well seated with no abnormal rocking motion Mitral Valve There is mild anterior and moderate posterior mitral leaflet thickening. There is no mitral valve regurgitation. There is no mitral valve stenosis. Pulmonic Valve The pulmonic valve is likely normal. There is trace pulmonic valve regurgitation. Tricuspid Valve Normal tricuspid valve structure. There is mild tricuspid valve regurgitation. The right ventricular systolic pressure is normal. The right ventricular systolic pressure is 21 mmHg. Normal right atrial pressure. There is no evidence of pulmonary hypertension. Great Vessels The aorta was not well visualized. The pulmonary artery was not well visualized. Venous The inferior vena cava is normal in size and collapses greater than 50% with inspiration. Pericardium/Pleural There is no evidence of pericardial effusion. Prior Study Comparison Changes noted compared to prior study dated: 11/19/2022. LV function is mildly reduced but LV size is normalized. A normally function bioprosthetic aortic valve is now present Measurements 2D Linear Measurements IVSd: 1.22 0.6-0.9/0.6-1.0 cm LVIDd: 4.88 3.9-5.3/4.2-5.9 cm LVIDd Index: 2.45 2.4-3.2/2.2-3.1 cm/m2 LVIDs: 3.69 2.0-3.6 cm LVPWd: 1.19 0.7-1.1 cm LA Diam: 3.50 2.7-3.8/3.0-4.0 cm LAIDs Index: 1.76 1.5-2.3 cm/m2 LV Mass: 282.05 67-162/88-224 g LV Mass Index: 141.74 43-95/49-115 g/m2 LVOT Diam: 2.00 3.0+(-)1.3 cm 2D Systolic Function EF 4C: 46.90 >55% EF 2C: 55.90 >55% EF BiP: 53.70 >55% Mitral Valve MV VTI: 0.42 MV Pk Floyd: 1.16 MV Mn Floyd: 0.70 MV Pk Grad: 5.00 MV Mn Grad: 2.00 MV Pk E: 0.64 MV PK A: 1.01 MV Decel Time: 275.00 E/A: 0.60 E'Lateral: 5.44 E'Medial: 5.44 E/E' Med: 11.80 E/E' Lat: 11.80 PHT: 80.00 MVA PHT: 2.75 MVA Continuity: 1.50 Decel Barnes: 2.34 Aortic Valve AoV Pk Floyd: 1.75 AoV Mn Floyd: 1.15 AoV VTI: 0.38 AoV Pk Grad: 12.00 Aov Mn Grad: 6.00 MOOK Cont.VTI: 1.72 LVOT LVOT Pk Floyd: 1.04 LVOT Mn Floyd: 0.68 LVOT VTI: 0.20 LVOT Pk Grad: 4.00 LVOT Mn Grad: 2.00 LVOT Diam: 2.00 LVOT Area: 3.14 Diastolic Function MV Pk E: 0.64 MV Pk A: 1.01 E/A: 0.60 E'Medial: 5.44 E/E' Med: 11.80 E' Laterial: 5.44 E/E' Lat: 11.80 Right Ventricle TAPSE (mm): 18.20 TVS' Floyd: 10.20 Tricuspid Valve TR Pk Floyd: 2.11 TR Pk Grad: 18.00 RA Press: 3.00 RVSP: 21.00 Great Vessels Aorta Sinus of Valsalva: 3.48 2.0-3.5 cm Ao Asc: 2.70 2.1-3.4 cm Ao Arch: 3.20 Updated in Other Vendor System with Status of Final Juan Alberto Liz MD electronically signed on 01/12/2023 4:29:41 PM with status of Final
== END ==
LOC: HO.CARD 10:48
PROVIDERS: PCP Internal Medicine; Visit Provider Internal Medicine Cardiovascular Disease
DX: Z95.2 Presence of prosthetic heart valve (principal)
CPT/HCPCS: 93306; 93356

== ENCOUNTER → 2023-01-11 10:50 | Outpatient (BNV) | payer MEDICARE, SELFPAY | PROVIDERS: PCP Internal Medicine; Visit Provider Internal Medicine Cardiovascular Disease | DX: I36.1 Nonrheumatic tricuspid (valve) insufficiency (principal); I34.89 Other nonrheumatic mitral valve disorders | CPT/HCPCS: 93306 ==

== ENCOUNTER 2023-01-27 15:18 | Outpatient (AMB) | payer MEDICARE, SELFPAY ==
[2023-01-27 15:35] VITALS: BP 130/76; PULSE 60; BMI 23.6
--- NOTE | 2023-01-27 15:35 | MHC.OFFVIS ---
Intake Vital Signs 01/27/23 15:35 Height 6 ft Weight 174 lb 2.643 oz BMI 23.6 BP 130/76 Blood Pressure Location Lt brachial Position Sitting Pulse 60 Intake Visit Reasons: 6 wk fu after tavr/echo Intake Note: 6 week follow-up post tavr and echo feeling good Payroll And Benefits Manager Required: No Allergies No Known Allergies Allergy (Verified 12/08/22 09:30) Medication List - Last Reconciled 01/27/23 by Juan Alberto Liz MD amlodipine 2.5 mg PO DAILY amoxicillin 2,000 mg (4 x 500 mg) PO ONCE aspirin (Ecotrin Low Strength) 81 mg PO DAILY brimonidine 0.2% 1 drp ophthalmic (eye) bumetanide 1 mg orally 1 tablet in am and 1/2 tablet at noon time 90 days ezetimibe (Zetia) 10 mg PO DAILY 90 days ibuprofen 800 mg PO TID omeprazole 20 mg PO DAILY rosuvastatin 40 mg PO DAILY sertraline 25 mg PO DAILY 30 days terazosin 5 mg PO DAILY HPI HPI Comments History of Present Illness Details Patrick comes for follow-up. He recently when transcatheter aortic valve replacement, follow-up echocardiogram shows normally function bioprosthetic aortic valve with reduction LV size with preserved systolic function. He says he feels better and more energetic. However he continues to have symptoms of palpitation which she describes as irregular heartbeat and some short runs. He denies any orthopnea, PND, leg edema. He is back to his exercise routine. He is taking all his medications [facility] Medical History Palpitations Dermatochalasis of both upper eyelids Vitamin D deficiency Dizziness Overweight (BMI 25.0-29.9) Insomnia Sensorineural hearing loss (SNHL) of both ears Osteoarthritis Allergic rhinitis GERD without esophagitis Benign prostatic hyperplasia Peripheral neuropathy Lumbar degenerative disc disease Bilateral lower extremity edema Coronary artery disease Benign essential hypertension Pure hypercholesterolemia Surgical History (Updated 01/27/23 @ 17:03 by Juan Alberto Liz MD) Status post transcatheter aortic valve replacement S/P CABG x 5 History of aortic valve replacement with bioprosthetic valve Family History Father CVD (cardiovascular disease) Mother Medical history unknown Social History Housing: House Alcohol intake: current Alcohol intake frequency: holidays/special occasions only Alcohol type: wine Patient Tobacco Use Status: Former Tobacco user e-Cigarette/Vaping Use: Never Used Second Hand Smoke Exposure: Yes service: Yes Current occupational status: retired Cognitive needs: No Hearing needs: No Vision needs: Yes Review of Systems Const Denies chills, Denies fatigue, Denies fever(s), Denies frequent falls, Denies weakness, Denies weight gain and Denies weight loss ENT Denies dizziness Card Denies chest pain, Denies leg edema, Denies lightheadedness, Denies palpitations, Denies dyspnea, Denies dyspnea on exertion, Denies orthopnea and Denies other (loss of consciousness) Resp Denies cough, Denies dyspnea and Denies dyspnea on exertion GI Denies hematochezia and Denies change in stool character Musc Denies abnormal gait, Denies muscle weakness, Denies numbness, Denies radiating pain into limb and Denies tingling Neuro Denies abnormal gait, Denies dizziness, Denies frequent falls, Denies numbness, Denies tingling and Denies weakness Endo Denies fatigue and Denies palpitations Physical Exam Vital Signs: Last Vital Signs Pulse 60 01/27/23 15:35 BP 130/76 01/27/23 15:35 BMI result Body Mass Index 23.6 Const General: cooperative, comfortable, no acute distress, alert, awake, Physically active and well groomed Nutritional Appearance: average body habitus Orientation/consciousness: patient oriented x3 Limitations: no limitations Neck Neck: Yes trachea midline, Yes supple and Yes no JVD Chest Chest palpation & inspection: normal inspection of the chest and other (Well-healed sternotomy scar) Resp Effort & Inspection: normal respiratory effort Auscultation: clear to auscultation bilaterally Cardio Jugular venous distension: no JVD Palpation: normal PMI and other (Hyperdynamic) Rate: regular rate Rhythm: regular rhythm Heart sounds: S1 normal heart sound present, S2 normal heart sound present and Murmur heart sound present systolic early Bruits: carotid bruit on the left GI Auscultation: normal bowel sounds Skin General skin exam: no rashes or lesions noted Neuro General: patient oriented x3 and no focal motor deficits Extrem General: Yes no clubbing, cyanosis or edema Psych Appearance: grossly normal Affect: Anxious affect present Assessment & Plan Assessment & Plan (1) Status post transcatheter aortic valve replacement: Comment: December 2022 for failed bioprosthetic aortic valve with severe aortic regurgitation Code(s): Z95.2 - Presence of prosthetic heart valve Plan: Status post transcatheter aortic valve replacement with normalized LV size and systolic function with well-functioning bioprosthetic aortic valve. Management of this was discussed. Continue current aspirin therapy. SBE prophylaxis as per [facility] guidelines. Follow-up echocardiogram as per TAVR protocol (2) (HFpEF) heart failure with preserved ejection fraction: Code(s): I50.30 - Unspecified diastolic (congestive) heart failure Plan: Heart failure preserved ejection fraction, clinically euvolemic and well compensated. Continue current diuretic dose. Importance of daily weight monitoring avoidance of salt loading was discussed continue current blood pressure management. Encouraged to continue to participate in physical activity as tolerated. (3) Coronary artery disease: Comment: S/P CABG (5-vessel) in 2003 Code(s): I25.10 - Atherosclerotic heart disease of [place] coronary artery without angina pectoris Qualifiers: Coronary Disease-Associated Artery/Lesion type: [place] artery [place] vs. transplanted heart: [place] heart Associated angina: without angina Qualified Code(s): I25.10 - Atherosclerotic heart disease of [place] coronary artery without angina pectoris Plan: CAD with remote coronary bypass grafting. Continue dual therapy with rosuvastatin ezetimibe with target goal LDL closer to 60 mg/dL. Continue lifelong aspirin therapy. Advised to call me with any new symptoms. Will follow up in the clinic in 6 months time, sooner p.r.n.. Thank you for allowing me to partake in his care Orders: Orders ECG 3 day holter monitor Today R00.2 - Palpitations Coding Level of Care Code Est Pt Level 4 ([id number]) Diagnoses Status post transcatheter aortic valve replacement Z95.2 (HFpEF) heart failure with preserved ejection fraction I50.30 Coronary artery disease involving [place] coronary artery of [place] heart without angina pectoris I25.10 Coronary Disease-Associated Artery/Lesion type: [place] artery [place] vs. transplanted heart: [place] heart Associated angina: without angina
== END 2023-01-27 15:53 | disposition home or self-care (01) ==
PROVIDERS: PCP Internal Medicine; Visit Provider Internal Medicine Cardiovascular Disease
DX: Z95.2 Presence of prosthetic heart valve (principal); I50.30 Unspecified diastolic (congestive) heart failure; I25.10 Atherosclerotic heart disease of native coronary artery without angina pectoris
CPT/HCPCS: 99214

== ENCOUNTER → 2023-01-27 15:18 | Outpatient (BNVA) | payer MEDICARE, SELFPAY | PROVIDERS: PCP Internal Medicine; Visit Provider Internal Medicine Cardiovascular Disease | DX: I50.30 Unspecified diastolic (congestive) heart failure (principal); I25.10 Atherosclerotic heart disease of native coronary artery without angina pectoris; Z95.2 Presence of prosthetic heart valve | CPT/HCPCS: 99212 ==

== ENCOUNTER 2023-02-23 10:49 | Outpatient (AMB) | payer MEDICARE, SELFPAY ==
[2023-02-23 11:03] VITALS: BP 120/78; PULSE 66; O2SAT 97; BMI 23.7
--- NOTE | 2023-02-23 11:03 | A.OFFPC_ITS ---
Vital Signs 02/23/23 11:03 Height 6 ft Weight 175 lb BMI 23.7 BP 120/78 Blood Pressure Location Lt brachial Position Sitting Pulse 66 Pulse Source Pulse Oximeter Pulse Oximetry (%) 97 Oxygen Delivery Method Room Air Intake Visit Reasons: 3 Month F/U Allergies No Known Allergies Allergy (Verified 02/23/23 11:47) Medication List - Last Reconciled 02/23/23 by Ceferino Braxton MD amlodipine 2.5 mg PO DAILY amoxicillin 2,000 mg (4 x 500 mg) PO ONCE aspirin (Ecotrin Low Strength) 81 mg PO DAILY brimonidine 0.2% 1 drp ophthalmic (eye) bumetanide 1 mg orally 1 tablet in am and 1/2 tablet at noon time 90 days ezetimibe (Zetia) 10 mg PO DAILY 90 days ibuprofen 800 mg PO TID omeprazole 20 mg PO DAILY rosuvastatin 40 mg PO DAILY sertraline 25 mg PO DAILY 30 days terazosin 5 mg PO DAILY Tobacco use date assessed: 12/08/22 Fall risk assessment: No Falls in past year Last assessed Fall Risk: 02/23/23 Dental Screening Dental Screen Date: 02/23/23 Did you have a dental visit in the last 12 months?: Yes Did you have a dental problem in the last 6 months where you did not have access to dental care?: No Was dental information given to patient?: Patient has dentist HPI 3 Month F/U HPI Details Patient comes in today for his follow up visit States that he feels okay and that his TAVR went well without any significant issues back in December 2022 although he reports experiencing some on and off brief sensations of palpitations lately States that his previous symptoms of chest pains/pressure and FELIX have all improved/resolved after he had his valve replacement done He is scheduled to have a repeat echocardiogram and Holter monitor sometime next week for further evaluation He denies any headaches or dizziness Denies any exertional chest pains or SOB No nausea/vomiting, no abdominal pain No change in bowel habits noted States that he will need all of his Rx refilled and sent now to his new mail order pharmacy - now uses [facility] instead of [facility] Medical History Palpitations Dermatochalasis of both upper eyelids Vitamin D deficiency Dizziness Overweight (BMI 25.0-29.9) Insomnia Sensorineural hearing loss (SNHL) of both ears Osteoarthritis Allergic rhinitis GERD without esophagitis Benign prostatic hyperplasia Peripheral neuropathy Lumbar degenerative disc disease Bilateral lower extremity edema Coronary artery disease Benign essential hypertension Pure hypercholesterolemia Surgical History Status post transcatheter aortic valve replacement S/P CABG x 5 History of aortic valve replacement with bioprosthetic valve Family History Father CVD (cardiovascular disease) Mother Medical history unknown Social History Housing: House Alcohol intake: current Alcohol intake frequency: holidays/special occasions only Alcohol type: wine Patient Tobacco Use Status: Former Tobacco user e-Cigarette/Vaping Use: Never Used Second Hand Smoke Exposure: Yes service: Yes Current occupational status: retired Cognitive needs: No Hearing needs: No Vision needs: Yes Questionnaire PHQ-9 Over the last 2 weeks, how often have you been bothered by any of the following problems? 1. Little interest or pleasure in doing things: more than half the days 2. Feeling down, depressed, or hopeless: more than half the days 3. Trouble falling or staying asleep, or sleeping too much: more than half the days 4. Feeling tired or having little energy: more than half the days 5. Poor appetite or overeating: several days 6. Feeling bad about yourself - or that you are a failure or have let yourself or your family down: not at all 7. Trouble concentrating on things, such as reading the newspaper or watching television: not at all 8. Moving or speaking so slowly that other people could have noticed. Or the opposite - being so fidgety or restless that you have been moving around a lot more than usual: not at all 9. Thoughts that you would be better off or of hurting yourself in some way: not at all Total score: 9 Depression Screening Interpretation: Positive Depression Screening Follow-up: Existing condition and In treatment Depression Screening Done: Yes [id number] - PHQ-9 Billing: Yes Source: Developed by Drs. Patrick Osorio, Krishna Arriaza and colleagues, with an educational kacie from [employer]. Thrive Questionnaire Date Thrive assessed: 02/23/23 I am a: Patient What is your living situation today?: I have a steady place to live Within the past 12 months, did the food you bought not last and you didn't have the money to get more?: Never true Within the past 12 months, did you worry whether your food would run out before you got money to buy more?: Never true Do you have trouble paying for medicines?: No Do you have trouble getting transportation to medical appointments?: No Do you have trouble paying your heating and electricity bill?: No Do you have trouble taking care of your child, family member or friend?: No Do you have trouble with day-to-day activities such as bathing, preparing meals, shopping, managing finances, etc.?: No Are you currently unemployed and looking for a job?: No Are you interested in more education?: No Please select the resources that you would like help with: None Currently or been in a relationship where the following occur: no concerns reported AUDIT C Alcohol Use Questionnaire (AUDIT-C) 1. How often do you have a drink containing alcohol?: Monthly or less 2. How many drinks containing alcohol do you have on a typical day when you are drinking?: 1 or 2 3. How often do you have six or more drinks on one occasion?: Never Total Score: 1 Score Reviewed/Action Taken: Yes CHAD-7 AMB Questionnaire CHAD-7 Date CHAD - 7 assessed: 02/23/23 Feeling nervous, anxious, or on edge: 0 = Not at all Not being able to stop or control worryin = Not at all Worrying too much about different things: 0 = Not at all Trouble relaxin = Not at all Being so restless that it is hard to sit still: 0 = Not at all Becoming easily annoyed or irritable: 0 = Not at all Feeling afraid as if something awful might happen: 0 = Not at all Total CHAD-7 score (0-4 normal; 5-9 mild; 10-14 moderate; 15-21 severe): 0 Source: Developed by Drs. Patrick Osorio, Krishna Arriaza and colleagues, with an educational kacie from [employer]. Review of Systems Const Denies chills, Denies fatigue, Denies fever(s) and Denies headache(s) ENT Denies dysphagia, Denies dizziness, Denies otalgia, Denies headache(s), Denies odynophagia and Denies sore throat Card Denies chest pain, Denies chest pain with activity, Reports irregular heart rhythm (occasional brief sensations of palpitations recently), Denies palpitations, Denies dyspnea and Denies dyspnea on exertion Resp Denies cough, Denies pain on inspiration, Denies dyspnea and Denies dyspnea on exertion GI Denies abdominal pain, Denies constipation, Denies dysphagia, Denies diarrhea, Denies nausea, Denies odynophagia and Denies vomiting Denies dysuria, Denies nocturia and Denies urinary frequency Musc Reports back pain (over the lower back - chronic) Skin/Breast Denies rash Neuro Denies dizziness and Denies headache(s) Psych Reports anxiety (feels stressed with his 's multiple health conditions) Endo Denies fatigue and Denies palpitations Physical exam (Primary Care) Vital Signs: Last Vital Signs Pulse 66 02/23/23 11:03 BP 120/78 02/23/23 11:03 Pulse Ox 97 02/23/23 11:03 Oxygen Delivery Method Room Air 02/23/23 11:03 BMI result Body Mass Index 23.7 Tobacco/Smoking Status: Tobacco use Status Tobacco use date assessed 12/08/22 02/23/23 11:06 Patient Tobacco Use Status Former Tobacco user 02/23/23 11:06 e-Cigarette/Vaping Use Never Used 02/23/23 11:06 PHQ-9: PHQ-9 Score PHQ-9: Total score 9 02/23/23 11:06 Depression Screening Interpretation: Positive Depression Screening Follow-up: Existing condition and In treatment Thrive Assessment: Date of Thrive Assessment Date Thrive assessed 02/23/23 02/23/23 11:06 Currently or been in a relationship where the following occur: no concerns reported Const General: no acute distress and alert HENMT Ears: TM's normal bilaterally and EAC's normal Throat: Yes posterior oropharynx normal and Yes tonsils normal (no TP congestion noted) Neck Neck: Yes no lymphadenopathy and Yes supple Resp Auscultation: clear to auscultation bilaterally, no rales and no wheezes Cardio Rate: regular rate Rhythm: regular rhythm Heart sounds: Murmur heart sound present systolic early and soft GI Palpation (GI): Soft to palpation and nontender Auscultation: normal bowel sounds General: Yes no CVA tenderness Back/Spine/Pelvis Back: no CVA tenderness Thoracic/Lumbar Spine: lumbar spinal tenderness Skin Rashes: no rashes Extrem General: Yes no clubbing, cyanosis or edema Assessment and Plan Assessment & Plan (1) Severe aortic regurgitation: Code(s): I35.1 - Nonrheumatic aortic (valve) insufficiency Plan: S/P TAVR at [facility] in December 2022 Patient states that all of his previous cardiac symptoms, including his chest pressure/pain/discomfort as well as dyspnea have completely resolved since his valve replacement He was seen by cardiology for follow up recently and is scheduled to have a repeat echocardiogram done next week (2) Coronary artery disease: Comment: S/P CABG (5-vessel) in 2003 Code(s): I25.10 - Atherosclerotic heart disease of [place] coronary artery without angina pectoris Qualifiers: Coronary Disease-Associated Artery/Lesion type: [place] artery [place] vs. transplanted heart: [place] heart Associated angina: without angina Qualified Code(s): I25.10 - Atherosclerotic heart disease of [place] coronary artery without angina pectoris Plan: S/P CABG (5-vessel) in 2003 Coronary angiogram done last week on 12/02/2022 revealed 80% stenosis of the proximal LAD, LMCA and ostial diagonal, 70% stenosis of the proximal Cx and 99% stenosis of the ostial RCA Continue Aspirin 81 mg QD and aggressive risk factor modification Follow up with cardiology as scheduled (3) Palpitations: Code(s): R00.2 - Palpitations Plan: He is scheduled for a repeat echocardiogram and Holter monitor for further evaluation next week Follow up with cardiology as scheduled (4) Pure hypercholesterolemia: Code(s): E78.00 - Pure hypercholesterolemia, unspecified Plan: Reinforced low cholesterol diet Continue Rosuvastatin 40 mg QD and Ezetimibe 10 mg QD Will have patient recheck his labs and fasting lipids next month for follow up (5) Benign essential hypertension: Code(s): I10 - Essential (primary) hypertension Plan: Reinforced low sodium diet - goal is systolic BP of at least 140 to 150 mm or less Continue Amlodipine 2.5 mg QD He was on Lisinopril 2.5 mg previously but stopped taking it after he developed recurrent dizziness while on the Rx (6) GERD without esophagitis: Code(s): K21.9 - Gastro-esophageal reflux disease without esophagitis Plan: Dietary restrictions reinforced Continue Omeprazole 20 mg QD (7) Lumbar degenerative disc disease: Code(s): M51.36 - Other intervertebral disc degeneration, lumbar region Plan: Reinforced activity and weight-lifting restrictions States that he is still able to put up with his low back pain, which he's had for years Repeat lumbar spine x-rays done in 2021 revealed (+) dextrocurvature of the lumbar spine centered at the L2 vertebral body and minimal grade 1 anterolisthesis of L4 on L5 that are unchanged from previous. There are also multilevel degenerative disc disease and bilateral facet arthropathy that have s lightly progressed compared to the prior examination He has been to physical therapy in the past with only partial improvement of his low back pain; states that he continues to do the back exercises and stretching that he was taught by physical therapy previously on a regular basis help manage his back pain Patient has been advised that if his back pain persist or continues to get worse, we can consider referring him back to physical therapy or send him for an MRI of the lumbar spine for further evaluation (8) Insomnia: Code(s): G47.00 - Insomnia, unspecified Qualifiers: Insomnia type: unspecified Qualified Code(s): G47.00 - Insomnia, unspecified Plan: Sleep hygiene reinforced Continue Zolpidem 10 mg Q HS PRN (9) Anxiety: Code(s): F41.9 - Anxiety disorder, unspecified Plan: Continue Sertraline 25 mg QD Plan Follow up as scheduled next month Orders: Orders Comprehensive Roe. Panel Fast 03/21/23 E78.00 - Pure hypercholesterolemia, unspecified TSH reflex Free T4 03/21/23 E78.00 - Pure hypercholesterolemia, unspecified Complete Blood Count Auto Diff 03/21/23 I10 - Essential (primary) hypertension Lipid Panel 03/21/23 E78.00 - Pure hypercholesterolemia, unspecified UA CC w/rflx Micro + Cult 03/21/23 R30.0 - Dysuria Vitamin D 25-OH Total 03/21/23 E55.9 - Vitamin D deficiency, unspecified Medications: Changed From sertraline 25 mg PO DAILY 30 days 30 tabs 3RF To sertraline 25 mg PO DAILY 90 days 90 tabs 3RF From amlodipine 2.5 mg PO DAILY 30 tabs 5RF To amlodipine 2.5 mg PO DAILY 90 days 90 tabs 3RF From aspirin (Ecotrin Low Strength) 81 mg PO DAILY 30 tabs 0RF To aspirin (Ecotrin Low Strength) 81 mg PO DAILY 90 days 90 tabs 3RF Refilled ezetimibe (Zetia) 10 mg PO DAILY 90 days 90 tabs 3RF bumetanide 1 mg orally 1 tablet in am and 1/2 tablet at noon time 90 days 135 tabs 3RF R00.2 - Palpitations omeprazole 20 mg PO DAILY 90 caps 3RF rosuvastatin 40 mg PO DAILY 90 tabs 3RF terazosin 5 mg PO DAILY 90 caps 3RF Coding Level of Care Code Est Pt Level 4 (46573) Diagnoses Severe aortic regurgitation I35.1 Coronary artery disease involving [place] coronary artery of [place] heart without angina pectoris I25.10 Coronary Disease-Associated Artery/Lesion type: [place] artery [place] vs. transplanted heart: [place] heart Associated angina: without angina Palpitations R00.2 Pure hypercholesterolemia E78.00 Benign essential hypertension I10 GERD without esophagitis K21.9 Lumbar degenerative disc disease M51.36 Insomnia, unspecified type G47.00 Insomnia type: unspecified Anxiety F41.9
== END 2023-02-23 12:35 | disposition home or self-care (01) ==
PROVIDERS: PCP Internal Medicine; Visit Provider Internal Medicine
DX: I35.1 Nonrheumatic aortic (valve) insufficiency (principal); I25.10 Atherosclerotic heart disease of native coronary artery without angina pectoris; R00.2 Palpitations; E78.00 Pure hypercholesterolemia, unspecified; I10 Essential (primary) hypertension; K21.9 Gastro-esophageal reflux disease without esophagitis; M51.36 Other intervertebral disc degeneration, lumbar region; G47.00 Insomnia, unspecified; F41.9 Anxiety disorder, unspecified
CPT/HCPCS: 99214

== ENCOUNTER → 2023-02-28 12:35 | Outpatient (REF) | payer MEDICARE, SELFPAY ==
--- NOTE | 2023-02-28 12:38 | CA_ITS ---
Transthoracic Echocardiogram Patient (Last, First, Middle): Patrick Magdaleno, Gender: Male Date of : 1935 Age: 87 Procedure Date: 02/28/2023 Procedure Type: Transthoracic Echocardiogram Location: OP Height: 182.88 cm Weight: 77.11 kg BSA: 1.99 m2 Heart Rate: 61 bpm BP: 128 / 74 mmHg Regional Director Of Finance: TRAVIS Referring MD: Juan Alberto Liz MD Symptoms: Z95.3 - Presence of xenogenic heart valve Study Quality: Adequate ECG Rhythm: Sinus Conclusions: - The left ventricular systolic function is normal. The visually estimated ejection fraction is between 55-60%. - The mid anteroseptal segment is hypokinetic. - A bioprosthetic aortic valve is present. The prosthetic aortic valve appears to be functioning normally. Findings Left Ventricle Normal left ventricular cavity size. There is normal left ventricular wall thickness. The left ventricular systolic function is normal. The visually estimated ejection fraction is between 55-60%. There is no evidence of regional wall motion abnormalities. Evidence suggests grade I (mild) diastolic dysfunction. Mild focal hypertrophy of the basal septum. LV peak GLS -16.2%. Wall Motion Rest Echo Findings The mid anteroseptal segment is hypokinetic. Right Ventricle Mildly increased right ventricular cavity size. There is mildly decreased right ventricular systolic function. Atria The left atrium is mildly dilated. The right atrium is normal in size. Aortic Valve A bioprosthetic aortic valve is present. The prosthetic aortic valve appears to be functioning normally. There is no aortic valve regurgitation. Mitral Valve The mitral valve appears normal. There is mild mitral valve regurgitation. There is no mitral valve stenosis. Pulmonic Valve The pulmonic valve is likely normal. Tricuspid Valve Normal tricuspid valve structure. There is mild tricuspid valve regurgitation. There is no evidence of pulmonary hypertension. Great Vessels The asc aorta is normal in size. Venous The inferior vena cava is normal in size and collapses greater than 50% with inspiration. Pericardium/Pleural There is no evidence of pericardial effusion. Prior Study Comparison No significant change compared to prior study dated: 01/11/2023. Wall motion is similar to prior study images. Measurements 2D Linear Measurements IVSd: 0.73 0.6-0.9/0.6-1.0 cm LVIDd: 5.01 3.9-5.3/4.2-5.9 cm LVIDd Index: 2.52 2.4-3.2/2.2-3.1 cm/m2 LVIDs: 3.75 2.0-3.6 cm LVPWd: 0.71 0.7-1.1 cm LA Diam: 4.20 2.7-3.8/3.0-4.0 cm LAIDs Index: 2.11 1.5-2.3 cm/m2 LV Mass: 147.38 67-162/88-224 g LV Mass Index: 74.06 43-95/49-115 g/m2 LVOT Diam: 2.30 3.0+(-)1.3 cm 2D Systolic Function EF 4C: 60.00 >55% EF 2C: 58.80 >55% EF BiP: 60.00 >55% Mitral Valve MV VTI: 0.33 MV Pk Floyd: 1.22 MV Mn Floyd: 0.69 MV Pk Grad: 6.00 MV Mn Grad: 2.00 MV Pk E: 0.96 MV PK A: 1.20 MV Decel Time: 262.00 E/A: 0.80 E'Lateral: 5.33 E'Medial: 5.98 E/E' Med: 16.00 E/E' Lat: 17.90 PHT: 77.00 MVA PHT: 2.86 MVA Continuity: 3.33 Decel Raw[place]ins: 3.65 Aortic Valve AoV Pk Floyd: 1.52 AoV Mn Floyd: 1.06 AoV VTI: 0.33 AoV Pk Grad: 9.00 Aov Mn Grad: 6.00 MOOK Cont.VTI: 3.34 LVOT LVOT Pk Floyd: 1.18 LVOT Mn Floyd: 0.82 LVOT VTI: 0.26 LVOT Pk Grad: 6.00 LVOT Mn Grad: 4.00 LVOT Diam: 2.30 LVOT Area: 4.15 Diastolic Function MV Pk E: 0.96 MV Pk A: 1.20 E/A: 0.80 E'Medial: 5.98 E/E' Med: 16.00 E' Laterial: 5.33 E/E' Lat: 17.90 Right Ventricle TAPSE (mm): 15.10 TVS' Floyd: 8.70 Tricuspid Valve TR Pk Floyd: 2.28 TR Pk Grad: 21.00 RA Press: 3.00 RVSP: 24.00 Great Vessels Aorta Ao Asc: 3.70 2.1-3.4 cm Ao Arch: 3.50 Pulmonary Valve PV Pk Floyd: 1.44 Peak PV Grad: 8.00 Updated in Other Vendor System with Status of Final Marcus Delacruz MD electronically signed on 03/01/2023 3:04:40 PM with status of Final
--- NOTE | 2023-02-28 12:38 | HM_ITS ---
* Total monitoring time 3 days. * Underlying rhythm is sinus with an average rate of 71/Min. Range 49-121/Min. * Frequent supraventricular ectopy with very brief runs. * Frequent ventricular ectopy with a burden of 1.1%. Couplets noted, some triplets, bigeminy, trigeminy. Longest run 3 beats. * No pauses or high-grade heart blocks. * Patient marker used in association with PVCs and sinus rhythm. Palpitations in diary correlates with this. MTDD
== END ==
LOC: HO.CARD 12:35
PROVIDERS: PCP Internal Medicine; Visit Provider Internal Medicine Cardiovascular Disease
DX: R00.2 Palpitations (principal); I35.1 Nonrheumatic aortic (valve) insufficiency; Z95.3 Presence of xenogenic heart valve
CPT/HCPCS: 93242; 93306; 93356

== ENCOUNTER → 2023-02-28 12:38 | Outpatient (BNV) | payer MEDICARE, SELFPAY | PROVIDERS: PCP Internal Medicine; Visit Provider Internal Medicine | DX: I49.3 Ventricular premature depolarization (principal) | CPT/HCPCS: 93244; 93306 ==

== ENCOUNTER 2023-03-28 10:34 | Outpatient (REF) | payer MEDICARE, SELFPAY ==
[2023-03-28 10:57] LABS: Appearance Urine Clear; Color Urine Yellow; Glucose Urine UA Negative (Negative); Leukocyte Esterase Urine Trace (Negative); Nitrite Urine Negative (Negative); UMIC TRIGGER UACC YES; Urine Blood Negative (Negative); Urine Ketones Negative (Negative); Urine Protein Negative (Neg-Trace)
[2023-03-28 11:02] LABS: Bacteria Urine None Seen (None Seen); Hyaline Casts Urine 0-2 /LPF (0-2); RBC Urine 0-2 /HPF (0-2); Squamous Epithelial Cell Urine 0-2 /HPF (0-2); WBC Urine 0-5 /HPF (0-5)
[2023-03-28 11:14] LABS: MANUAL DIFF FLAG NO
[2023-03-28 11:25] LABS: Basophils Percent Auto 0.4 % (0-2); Eosinophils Absolute Auto 0.5 X10*3/uL (0.0-0.4); Eosinophils Percent Auto 5.7 % (0-4); Hematocrit 40.1 % (42.0-52.0); Hemoglobin 13.7 g/dl (14.0-18.0); Imm Gran Abs Auto 0.02 X10*3/uL (0.00-0.03); Imm Gran Pct Auto 0.2 % (0.0-0.4); Lymphocytes Absolute Auto 1.6 X10*3/uL (1.2-4.9); Lymphocytes Percent Auto 17.3 % (20-40); Mean Corpuscular HGB Conc 34.2 g/dl (31.0-36.0); Mean Corpuscular Hemoglobin 31.6 pg (27.0-33.0); Mean Corpuscular Volume 92.4 fL (80.0-98.0); Mean Platelet Volume 10.6 fL (9.4-12.4); Monocytes Absolute Auto 0.9 X10*3/uL (0.1-1.2); Monocytes Percent Auto 9.7 % (2-11); Neutrophils Absolute Auto 6.1 x10*3/uL (2.0-8.3); Neutrophils Percent Auto 66.7 % (45-73); Platelet Count 152 X10*3/uL (160-400); Red Blood Count 4.34 X10*6/uL (4.60-5.80); Red Cell Distribution Width 13.4 % (11.0-16.0); White Blood Count 9.2 X10*3/uL (4.8-10.8)
[2023-03-28 13:02] LABS: Alanine Aminotransferase 25 U/L (0-40); Alkaline Phosphatase 80 U/L (39-117); Anion Gap 12 (12-20); Aspartate Amino Transferase 28 U/L (5-37); Bilirubin Total 0.5 mg/dL (0.0-1.0); Blood Urea Nitrogen 20 mg/dL (9-16); Calcium 9.5 mg/dL (8.4-10.2); Carbon Dioxide 27 mmol/L (22-29); Chloride 108 mmol/L (96-108); Cholesterol 124 mg/dL (<200); Estimated Glomerular Filt Rate > 60; Glucose Fasting 88 mg/dL (60-99); HDL Cholesterol 43 mg/dL (>40); LDL Cholesterol Calculated 63 mg/dL (<100); Potassium 3.6 mmol/L (3.3-5.1); Sodium 143 mmol/L (135-145); Total Protein 6.8 g/dL (6.5-8.0); Triglycerides 90 mg/dL (<150)
[2023-03-28 13:07] LABS: Vitamin D 25-OH Total 37.6 ng/mL (>30)
== END 2023-03-28 10:35 | disposition home or self-care (01) ==
LOC: HO.10HDL 10:34
PROVIDERS: Visit Provider Internal Medicine
DX: I10 Essential (primary) hypertension (principal); E78.00 Pure hypercholesterolemia, unspecified; E55.9 Vitamin D deficiency, unspecified; R30.0 Dysuria
CPT/HCPCS: 36415; 80053; 80061; 81001; 82306; 84443; 85025

== ENCOUNTER 2023-03-30 09:47 | Outpatient (AMB) | payer MEDICARE, SELFPAY ==
[2023-03-30 09:59] VITALS: BP 106/82; PULSE 73; O2SAT 98; BMI 24.0
--- NOTE | 2023-03-30 09:59 | A.OFFPC_ITS ---
Vital Signs 03/30/23 09:59 Height 6 ft Weight 177 lb 2 oz BMI 24.0 BP 106/82 Blood Pressure Location Lt brachial Position Sitting Pulse 73 Pulse Source Pulse Oximeter Pulse Oximetry (%) 98 Oxygen Delivery Method Room Air Intake Visit Reasons: 4 month f/u [employer] Required: No Accompanied by: Self / Same As Patient Allergies No Known Allergies Allergy (Verified 03/30/23 10:23) Medication List - Last Reconciled 03/30/23 by Ceferino Braxton MD amlodipine 2.5 mg PO DAILY 90 days amoxicillin 2,000 mg (4 x 500 mg) PO ONCE aspirin (Ecotrin Low Strength) 81 mg PO DAILY 90 days brimonidine 0.2% 1 drp ophthalmic (eye) bumetanide 1 mg orally 1 tablet in am and 1/2 tablet at noon time 90 days ezetimibe (Zetia) 10 mg PO DAILY 90 days ibuprofen 800 mg PO TID metoprolol succinate ER (Toprol XL) 12.5 mg (1/2 x 25 mg) PO DAILY 90 days omeprazole 20 mg PO DAILY rosuvastatin 40 mg PO DAILY sertraline 25 mg PO DAILY 90 days terazosin 5 mg PO DAILY Tobacco use date assessed: 03/30/23 Fall risk assessment: No Falls in past year Last assessed Fall Risk: 03/30/23 Dental Screening Dental Screen Date: 03/30/23 Did you have a dental visit in the last 12 months?: Yes Did you have a dental problem in the last 6 months where you did not have access to dental care?: No Was dental information given to patient?: Patient has dentist HPI 4 month f/u HPI Details Patient comes in today for his follow up visit States that he feels okay He denies any headaches or dizziness Denies any exertional chest pains or SOB - has not had any recurrence of his symptoms since his valve replacement in December 2022 States that his symptoms of palpitations have improved a lot as well since he was started on 1/2 tablet of Metoprolol ER 25 mg by cardiology a couple of weeks ago He had an echocardiogram and a Holter monitor done last month but he is not sure how his results came out No nausea/vomiting, no abdominal pain and no change in bowel habits noted Had his follow up labs done a couple of days ago - to discuss his results [facility] Medical History Palpitations Dermatochalasis of both upper eyelids Vitamin D deficiency Dizziness Overweight (BMI 25.0-29.9) Insomnia Sensorineural hearing loss (SNHL) of both ears Osteoarthritis Allergic rhinitis GERD without esophagitis Benign prostatic hyperplasia Peripheral neuropathy Lumbar degenerative disc disease Bilateral lower extremity edema Coronary artery disease Benign essential hypertension Pure hypercholesterolemia Surgical History Status post transcatheter aortic valve replacement S/P CABG x 5 History of aortic valve replacement with bioprosthetic valve Family History Father CVD (cardiovascular disease) Mother Medical history unknown Social History Housing: House Alcohol intake: current Alcohol intake frequency: holidays/special occasions only Alcohol type: wine Patient Tobacco Use Status: Former Tobacco user e-Cigarette/Vaping Use: Never Used Second Hand Smoke Exposure: Yes service: Yes Current occupational status: retired Cognitive needs: No Hearing needs: No Vision needs: Yes Questionnaire PHQ-9 Over the last 2 weeks, how often have you been bothered by any of the following problems? 1. Little interest or pleasure in doing things: more than half the days 2. Feeling down, depressed, or hopeless: more than half the days 3. Trouble falling or staying asleep, or sleeping too much: more than half the days 4. Feeling tired or having little energy: more than half the days 5. Poor appetite or overeating: several days 6. Feeling bad about yourself - or that you are a failure or have let yourself or your family down: not at all 7. Trouble concentrating on things, such as reading the newspaper or watching television: not at all 8. Moving or speaking so slowly that other people could have noticed. Or the opposite - being so fidgety or restless that you have been moving around a lot more than usual: not at all 9. Thoughts that you would be better off or of hurting yourself in some way: not at all Total score: 9 Depression Screening Interpretation: Positive Depression Screening Follow-up: Existing condition and In treatment Depression Screening Done: Yes 25207 - PHQ-9 Billing: Yes Source: Developed by Drs. Patrick Osorio, Lashae Davila, Krishna Webster and colleagues, with an educational kacie from [employer]. Thrive Questionnaire Date Thrive assessed: 03/30/23 I am a: Patient What is your living situation today?: I have a steady place to live Within the past 12 months, did the food you bought not last and you didn't have the money to get more?: Never true Within the past 12 months, did you worry whether your food would run out before you got money to buy more?: Never true Do you have trouble paying for medicines?: No Do you have trouble getting transportation to medical appointments?: No Do you have trouble paying your heating and electricity bill?: No Do you have trouble taking care of your child, family member or friend?: No Do you have trouble with day-to-day activities such as bathing, preparing meals, shopping, managing finances, etc.?: No Are you currently unemployed and looking for a job?: No Are you interested in more education?: No Please select the resources that you would like help with: None Currently or been in a relationship where the following occur: no concerns reported THRIVE Score: 0 AUDIT C Alcohol Use Questionnaire (AUDIT-C) 1. How often do you have a drink containing alcohol?: Monthly or less 2. How many drinks containing alcohol do you have on a typical day when you are drinking?: 1 or 2 3. How often do you have six or more drinks on one occasion?: Never Total Score: 1 Score Reviewed/Action Taken: Yes CHAD-7 AMB Questionnaire CHAD-7 Date CHAD - 7 assessed: 03/30/23 Feeling nervous, anxious, or on edge: 0 = Not at all Not being able to stop or control worryin = Not at all Worrying too much about different things: 0 = Not at all Trouble relaxin = Not at all Being so restless that it is hard to sit still: 0 = Not at all Becoming easily annoyed or irritable: 0 = Not at all Feeling afraid as if something awful might happen: 0 = Not at all Total CHAD-7 score (0-4 normal; 5-9 mild; 10-14 moderate; 15-21 severe): 0 Source: Developed by Drs. Patrick Osorio, Lashae Davila, Krishna Webster and colleagues, with an educational kacie from [employer]. Review of Systems Const Denies chills, Denies fatigue, Denies fever(s) and Denies headache(s) ENT Denies dysphagia, Denies dizziness, Denies otalgia, Denies headache(s), Denies neck pain, Denies odynophagia and Denies sore throat Card Denies chest pain, Denies chest pain with activity, Reports irregular heart rhythm (occasional brief palpitations - improved with Metoprolol Rx), Denies palpitations and Denies dyspnea Resp Denies cough, Denies pain on inspiration and Denies dyspnea GI Denies abdominal pain, Denies constipation, Denies dysphagia, Denies diarrhea, Denies nausea, Denies odynophagia and Denies vomiting Denies dysuria, Denies nocturia and Denies urinary frequency Musc Reports back pain (over the lower back - chronic) and Denies neck pain Skin/Breast Denies rash Neuro Denies dizziness and Denies headache(s) Psych Reports anxiety (feels stressed with his 's multiple health conditions) Endo Denies fatigue and Denies palpitations Physical exam (Primary Care) Vital Signs: Last Vital Signs Pulse 73 03/30/23 09:59 BP 106/82 03/30/23 09:59 Pulse Ox 98 03/30/23 09:59 Oxygen Delivery Method Room Air 03/30/23 09:59 BMI result Body Mass Index 24.0 Tobacco/Smoking Status: Tobacco use Status Tobacco use date assessed 03/30/23 03/30/23 10:01 Patient Tobacco Use Status Former Tobacco user 03/30/23 10:01 e-Cigarette/Vaping Use Never Used 03/30/23 10:01 PHQ-9: PHQ-9 Score PHQ-9: Total score 9 03/30/23 10:26 Depression Screening Interpretation: Positive Depression Screening Follow-up: Existing condition and In treatment Thrive Assessment: Date of Thrive Assessment Date Thrive assessed 03/30/23 03/30/23 10:01 Currently or been in a relationship where the following occur: no concerns reported Const General: no acute distress and alert HENMT Ears: TM's normal bilaterally and EAC's normal Throat: Yes posterior oropharynx normal and Yes tonsils normal (no TP congestion noted) Neck Neck: Yes no lymphadenopathy and Yes supple Resp Auscultation: clear to auscultation bilaterally, no rales and no wheezes Cardio Rate: regular rate Rhythm: regular rhythm Heart sounds: Murmur heart sound present systolic early and soft GI Palpation (GI): Soft to palpation and nontender Auscultation: normal bowel sounds General: Yes no CVA tenderness Back/Spine/Pelvis Back: no CVA tenderness Thoracic/Lumbar Spine: lumbar spinal tenderness Skin Rashes: no rashes Extrem General: Yes no clubbing, cyanosis or edema Results Reviewed Results Reviewed: Laboratory Tests 03/28/23 10:36 WBC 9.2 Hgb 13.7 L Hct 40.1 L Plt Count 152 L D Sodium 143 Potassium 3.6 Creatinine 0.96 Estimated GFR > 60 Fasting Glucose 88 Calcium 9.5 AST 28 ALT 25 Triglycerides 90 Cholesterol 124 LDL Cholesterol, Calc 63 HDL Cholesterol 43 25-OH Vitamin D Total 37.6 TSH 3.80 Ur Specific [place] 1.020 Urine Protein Negative Urine Glucose (UA) Negative Urine Blood Negative Urine Nitrite Negative Ur Leukocyte Esterase Trace H Assessment and Plan Assessment & Plan (1) Severe aortic regurgitation: Code(s): I35.1 - Nonrheumatic aortic (valve) insufficiency Plan: S/P TAVR at [facility] in December 2022 Patient states that all of his previous cardiac symptoms have completely resolved with his valve replacement surgery Repeat echocardiogram done last month revealed a normal left ventricular sys tolic function, with the visually estimated ejection fraction between 55-60%The mid anteroseptal segment is hypokinetic and a bioprosthetic aortic valve is present - the prosthetic aortic valve appears to be functioning normally Follow up with cardiology as scheduled (2) Palpitations: Code(s): R00.2 - Palpitations Plan: 3 day Holter monitor done last month revealed (+) frequent supraventricular ectopy with very brief run and frequent ventricular ectopy with a burden of 1.1%. Couplets noted, some triplets, bigeminy, trigeminy. Longest run was 3 beats, with no pauses or high-grade heart blocks Patient was started on Metoprolol ER 25 mg 1/2 tablet QD by cardiology and he states that his symptoms seem to have improved a lot since Follow up with cardiology as scheduled (3) Coronary artery disease: Comment: S/P CABG (5-vessel) in 2004 Code(s): I25.10 - Atherosclerotic heart disease of [place] coronary artery without angina pectoris Qualifiers: Associated angina: without angina Coronary Disease-Associated Artery/Lesion type: [place] artery [place] vs. transplanted heart: [place] heart Qualified Code(s): I25.10 - Atherosclerotic heart disease of [place] coronary artery without angina pectoris Plan: S/P CABG (5-vessel) in 2003 Coronary angiogram done on 12/02/2022 revealed 80% stenosis of the proximal LAD, LMCA and ostial diagonal, 70% stenosis of the proximal Cx and 99% stenosis of the ostial RCA Continue Aspirin 81 mg QD and aggressive risk factor modification Follow up with cardiology as scheduled (4) Pure hypercholesterolemia: Code(s): E78.00 - Pure hypercholesterolemia, unspecified Plan: Results of his labs done a couple of days ago reviewed and discussed with patient Reinforced low cholesterol diet Continue Rosuvastatin 40 mg QD and Ezetimibe 10 mg QD Will have patient recheck his labs and fasting lipids in 4 months for follow up (5) Benign essential hypertension: Code(s): I10 - Essential (primary) hypertension Plan: Reinforced low sodium diet - goal is systolic BP of at least 140 to 150 mm or less Continue Amlodipine 2.5 mg QD; was also started on Metoprolol ER 25 mg 1/2 tablet QD but this was more for his palpitations He was also on Lisinopril 2.5 mg before but he stopped taking it after he developed recurrent dizziness while on the Rx (6) GERD without esophagitis: Code(s): K21.9 - Gastro-esophageal reflux disease without esophagitis Plan: Dietary restrictions reinforced Continue Omeprazole 20 mg QD (7) Lumbar degenerative disc disease: Code(s): M51.36 - Other intervertebral disc degeneration, lumbar region Plan: Reinforced activity and weight-lifting restrictions States that he is still able to put up with his low back pain, which he's had for years Repeat lumbar spine x-rays done in 2021 revealed (+) dextrocurvature of the lumbar spine centered at the L2 vertebral body and minimal grade 1 anterolisthesis of L4 on L5 that are unchanged from previous. There are also multilevel degenerative disc disease and bilateral facet arthropathy that have slightly progressed compared to the prior examination He has been to physical therapy in the past with only partial improvement of his low back pain; states that he continues to do the back exercises and stretching that he was taught by physical therapy previously on a regular basis help manage his back pain Patient has been advised that if his back pain persist or continues to get worse, we can consider referring him back to physical therapy or send him for an MRI of the lumbar spine for further evaluation (8) Insomnia: Code(s): G47.00 - Insomnia, unspecified Qualifiers: Insomnia type: unspecified Qualified Code(s): G47.00 - Insomnia, unspecified Plan: Sleep hygiene reinforced Continue Zolpidem 10 mg Q HS PRN (9) Anxiety: Code(s): F41.9 - Anxiety disorder, unspecified Plan: Continue Sertraline 25 mg QD Plan Follow up in 4 months Orders: Orders Complete Blood Count Auto Diff 4 Months D64.9 - Anemia, unspecified TSH reflex Free T4 4 Months E78.00 - Pure hypercholesterolemia, unspecified Comprehensive [place]. Panel Fast 4 Months E78.00 - Pure hypercholesterolemia, unspecified Lipid Panel 4 Months E78.00 - Pure hypercholesterolemia, unspecified UA CC w/rflx Micro + Cult 4 Months R30.0 - Dysuria Vitamin D 25-OH Total 4 Months E55.9 - Vitamin D deficiency, unspecified Coding Level of Care Code Est Pt Level 4 (50335) Diagnoses Severe aortic regurgitation I35.1 Palpitations R00.2 Coronary artery disease involving [place] coronary artery of [place] heart without angina pectoris I25.10 Associated angina: without angina Coronary Disease-Associated Artery/Lesion type: [place] artery [place] vs. transplanted heart: [place] heart Pure hypercholesterolemia E78.00 Benign essential hypertension I10 GERD without esophagitis K21.9 Lumbar degenerative disc disease M51.36 Insomnia, unspecified type G47.00 Insomnia type: unspecified Anxiety F41.9
== END 2023-03-30 10:46 | disposition home or self-care (01) ==
PROVIDERS: PCP Internal Medicine; Visit Provider Internal Medicine
DX: I35.1 Nonrheumatic aortic (valve) insufficiency (principal); R00.2 Palpitations; I25.10 Atherosclerotic heart disease of native coronary artery without angina pectoris; E78.00 Pure hypercholesterolemia, unspecified; I10 Essential (primary) hypertension; K21.9 Gastro-esophageal reflux disease without esophagitis; M51.36 Other intervertebral disc degeneration, lumbar region; G47.00 Insomnia, unspecified; F41.9 Anxiety disorder, unspecified
CPT/HCPCS: 99214

== ENCOUNTER 2023-08-01 09:35 | Outpatient (REF) | payer MEDICARE, SELFPAY ==
[2023-08-01 10:22] LABS: MANUAL DIFF FLAG NO
[2023-08-01 10:29] LABS: Basophils Percent Auto 0.6 % (0-2); Eosinophils Absolute Auto 0.5 X10*3/uL (0.0-0.4); Eosinophils Percent Auto 6.9 % (0-4); Hematocrit 41.7 % (42.0-52.0); Imm Gran Abs Auto 0.01 X10*3/uL (0.00-0.03); Imm Gran Pct Auto 0.1 % (0.0-0.4); Lymphocytes Absolute Auto 1.7 X10*3/uL (1.2-4.9); Lymphocytes Percent Auto 24.8 % (20-40); Mean Corpuscular HGB Conc 33.6 g/dl (31.0-36.0); Mean Corpuscular Hemoglobin 31.4 pg (27.0-33.0); Mean Corpuscular Volume 93.5 fL (80.0-98.0); Mean Platelet Volume 10.1 fL (9.4-12.4); Monocytes Absolute Auto 0.7 X10*3/uL (0.1-1.2); Monocytes Percent Auto 10.9 % (2-11); Neutrophils Absolute Auto 3.8 x10*3/uL (2.0-8.3); Neutrophils Percent Auto 56.7 % (45-73); Platelet Count 146 X10*3/uL (160-400); Red Blood Count 4.46 X10*6/uL (4.60-5.80); Red Cell Distribution Width 13.5 % (11.0-16.0); White Blood Count 6.7 X10*3/uL (4.8-10.8)
[2023-08-01 10:59] LABS: Appearance Urine Clear; Color Urine Yellow; Glucose Urine UA Negative (Negative); Leukocyte Esterase Urine Negative (Negative); Nitrite Urine Negative (Negative); Urine Blood Negative (Negative); Urine Ketones Negative (Negative); Urine Protein Trace mg/dL (Neg-Trace)
[2023-08-01 11:05] LABS: Alanine Aminotransferase 37 U/L (0-40); Albumin Level 4.2 g/dL (3.5-5.0); Alkaline Phosphatase 82 U/L (39-117); Anion Gap 13 (12-20); Aspartate Amino Transferase 38 U/L (5-37); Bilirubin Total 0.5 mg/dL (0.0-1.0); Blood Urea Nitrogen 25 mg/dL (9-16); Calcium 9.4 mg/dL (8.4-10.2); Carbon Dioxide 28 mmol/L (22-29); Chloride 107 mmol/L (96-108); Cholesterol 129 mg/dL (<200); Estimated Glomerular Filt Rate > 60; Glucose Fasting 97 mg/dL (60-99); HDL Cholesterol 47 mg/dL (>40); LDL Cholesterol Calculated 67 mg/dL (<100); Sodium 144 mmol/L (135-145); TSH reflex Free T4 3.87 uIU/mL (0.32-4.0); Total Protein 7.1 g/dL (6.5-8.0); Triglycerides 78 mg/dL (<150); Vitamin D 25-OH Total 39.1 ng/mL (>30)
== END 2023-08-01 09:36 | disposition home or self-care (01) ==
LOC: HO.10HDL 09:35
PROVIDERS: Visit Provider Internal Medicine
DX: D64.9 Anemia, unspecified (principal); E78.00 Pure hypercholesterolemia, unspecified; R30.0 Dysuria; E55.9 Vitamin D deficiency, unspecified
CPT/HCPCS: 36415; 80053; 80061; 81003; 82306; 84443; 85025

== ENCOUNTER 2023-08-03 14:18 | Outpatient (AMB) | payer MEDICARE, SELFPAY ==
--- NOTE | 2023-08-03 14:35 | MHC.OFFVIS ---
Vital Signs 08/03/23 14:36 Height 6 ft Weight 171 lb 15.369 oz BMI 23.3 BP 120/74 Blood Pressure Location Lt brachial Position Sitting Pulse 56 Intake Visit Reasons: 6 month follow-up Intake Note: 6 month follow-up with ekg doing [employer] Required: No Allergies No Known Allergies Allergy (Verified 03/30/23 10:23) Medication List - Last Reconciled 08/03/23 by Juan Alberto Liz MD amlodipine 2.5 mg PO DAILY 90 days amoxicillin 2,000 mg (4 x 500 mg) PO ONCE aspirin (Ecotrin Low Strength) 81 mg PO DAILY 90 days brimonidine 0.2% 1 drp ophthalmic (eye) bumetanide 1 mg orally 1 tablet in am and 1/2 tablet at noon time 90 days ezetimibe (Zetia) 10 mg PO DAILY 90 days ibuprofen 800 mg PO TID metoprolol succinate ER (Toprol XL) 12.5 mg (1/2 x 25 mg) PO DAILY 90 days omeprazole 20 mg PO DAILY rosuvastatin 40 mg PO DAILY sertraline 25 mg PO DAILY 90 days terazosin 5 mg PO DAILY HPI Comments Details: Patrick comes for follow-up. Overall he has been doing well. He has grieving the loss of his spouse of 64 years. However he has been otherwise doing well. No exertional symptoms. Complains of leg edema mostly in the right lower extremity. He denies any exertional chest pain or shortness of breath. No orthopnea, PND, abdominal distension. Takes all his medications. Occasional strong heartbeat [facility] Medical History Palpitations Dermatochalasis of both upper eyelids Vitamin D deficiency Dizziness Overweight (BMI 25.0-29.9) Insomnia Sensorineural hearing loss (SNHL) of both ears Osteoarthritis Allergic rhinitis GERD without esophagitis Benign prostatic hyperplasia Peripheral neuropathy Lumbar degenerative disc disease Bilateral lower extremity edema Coronary artery disease Benign essential hypertension Pure hypercholesterolemia Surgical History Status post transcatheter aortic valve replacement S/P CABG x 5 History of aortic valve replacement with bioprosthetic valve Family History Father CVD (cardiovascular disease) Mother Medical history unknown Social History Housing: House Alcohol intake: current Alcohol intake frequency: holidays/special occasions only Alcohol type: wine Patient Tobacco Use Status: Former Tobacco user e-Cigarette/Vaping Use: Never Used Second Hand Smoke Exposure: Yes service: Yes Current occupational status: retired Cognitive needs: No Hearing needs: No Vision needs: Yes Review of Systems Const Denies chills, Denies fatigue, Denies fever(s), Denies frequent falls, Denies weakness, Denies weight gain and Denies weight loss ENT Denies dizziness Card Denies chest pain, Denies leg edema, Denies lightheadedness, Denies palpitations, Denies dyspnea, Denies dyspnea on exertion, Denies orthopnea and Denies other (loss of consciousness) Resp Denies cough, Denies dyspnea and Denies dyspnea on exertion GI Denies hematochezia and Denies change in stool character Musc Denies abnormal gait, Denies muscle weakness, Denies numbness, Denies radiating pain into limb and Denies tingling Neuro Denies abnormal gait, Denies dizziness, Denies frequent falls, Denies numbness, Denies tingling and Denies weakness Endo Denies fatigue and Denies palpitations Physical Exam Vital Signs: Last Vital Signs Pulse 56 08/03/23 14:36 BP 120/74 08/03/23 14:36 BMI result Body Mass Index 23.3 Const General: cooperative, comfortable, no acute distress, alert, awake, Physically active and well groomed Nutritional Appearance: average body habitus Orientation/consciousness: patient oriented x3 Limitations: no limitations Neck Neck: Yes trachea midline, Yes supple and Yes no JVD Chest Chest palpation & inspection: normal inspection of the chest and other (Well-healed sternotomy scar) Resp Effort & Inspection: normal respiratory effort Auscultation: clear to auscultation bilaterally Cardio Jugular venous distension: no JVD Palpation: normal PMI and other (Hyperdynamic) Rate: regular rate Rhythm: regular rhythm Heart sounds: S1 normal heart sound present, S2 normal heart sound present and Murmur heart sound present systolic early Bruits: carotid bruit on the left GI Auscultation: normal bowel sounds Skin General skin exam: no rashes or lesions noted Neuro General: patient oriented x3 and no focal motor deficits Extrem General: Yes no clubbing, cyanosis or edema Psych Appearance: grossly normal Affect: Anxious affect present Office Procedures EKG Details: . EKG shows sinus bradycardia with ectopic atrial beat with first-degree AV block otherwise normal EKG [id number], Complete Assessment & Plan Assessment & Plan (1) Status post transcatheter aortic valve replacement: Comment: December 2022 for failed bioprosthetic aortic valve with severe aortic regurgitation Code(s): Z95.2 - Presence of prosthetic heart valve Category: Medical Plan: Status post transcatheter aortic valve replacement for failure bioprosthetic aortic valve doing well from cardiac perspective. Continue low-dose aspirin therapy for life. Continue SBE prophylaxis as per ACC/[place] guidelines. Continue aggressive risk factor modification. (2) (HFpEF) heart failure with preserved ejection fraction: Code(s): I50.30 - Unspecified diastolic (congestive) heart failure Category: Medical Plan: Prior history of heart failure preserved ejection fraction with the same having some increased edema in the right lower extremity. I think this is more dependent edema rather than worsening heart failure syndrome. Discussed with him about compression stocking. Continue current diuretic dose. Advised to call me with any worsening heart failure symptoms. Daily weight monitoring avoidance of salt loading was discussed otherwise. (3) Coronary artery disease: Comment: S/P CABG (5-vessel) in 2003 Code(s): I25.10 - Atherosclerotic heart disease of [place] coronary artery without angina pectoris Category: Medical Qualifiers: Coronary Disease-Associated Artery/Lesion type: [place] artery [place] vs. transplanted heart: [place] heart Associated angina: without angina Qualified Code(s): I25.10 - Atherosclerotic heart disease of [place] coronary artery without angina pectoris Plan: CAD status post coronary artery bypass grafting. No recent symptoms suggestive of angina. Continue aggressive vascular risk factor modification. Currently on low-dose aspirin therapy for life. Continue the same. Continue aggressive blood pressure control which is currently well optimized. Continue statin therapy with target goal LDL less than 70 mg/dL. Will follow up in the clinic in 6 months time, sooner p.r.n.. Thank you for allowing me to partake in his care Coding Level of Care Code Est Pt Level 4 (60560) Diagnoses Status post transcatheter aortic valve replacement Z95.2 (HFpEF) heart failure with preserved ejection fraction I50.30 Coronary artery disease involving [place] coronary artery of [place] heart without angina pectoris I25.10 Coronary Disease-Associated Artery/Lesion type: [place] artery [place] vs. transplanted heart: [place] heart Associated angina: without angina CPT Codes EKG - CPT: [id number], Complete ([id number])
[2023-08-03 14:36] VITALS: BP 120/74; PULSE 56; BMI 23.3
== END 2023-08-03 15:04 | disposition home or self-care (01) ==
PROVIDERS: PCP Internal Medicine; Visit Provider Internal Medicine Cardiovascular Disease
DX: Z95.2 Presence of prosthetic heart valve (principal); I50.30 Unspecified diastolic (congestive) heart failure; I25.10 Atherosclerotic heart disease of native coronary artery without angina pectoris
CPT/HCPCS: 93010; 99214

== ENCOUNTER → 2023-08-03 14:18 | Outpatient (BNVA) | payer MEDICARE, SELFPAY | PROVIDERS: PCP Internal Medicine; Visit Provider Internal Medicine Cardiovascular Disease | DX: I50.30 Unspecified diastolic (congestive) heart failure (principal); I25.10 Atherosclerotic heart disease of native coronary artery without angina pectoris; Z95.2 Presence of prosthetic heart valve | CPT/HCPCS: 93005; 99212 ==

== ENCOUNTER 2023-08-10 13:02 | Outpatient (AMB) | payer MEDICARE, SELFPAY ==
--- NOTE | 2023-08-10 13:05 | A.OFFPC_ITS ---
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 Accompanied by: Self / Same As Patient Allergies No Known Allergies Allergy (Verified 08/10/23 13:25) Medication List - Last Reconciled 08/10/23 by Ceferino Braxton MD amlodipine 2.5 mg PO DAILY 90 days aspirin (Ecotrin Low Strength) 81 mg PO DAILY 90 days brimonidine 0.2% 1 drp ophthalmic (eye) bumetanide 1 mg orally 1 tablet in am and 1/2 tablet at noon time 90 days ezetimibe (Zetia) 10 mg PO DAILY 90 days ibuprofen 800 mg PO TID metoprolol succinate ER (Toprol XL) 12.5 mg (1/2 x 25 mg) PO DAILY 90 days omeprazole 20 mg PO DAILY rosuvastatin 40 mg PO DAILY terazosin 5 mg PO DAILY Tobacco use date assessed: 03/30/23 Fall risk assessment: No Falls in past year Last assessed Fall Risk: 08/10/23 Dental Screening Dental Screen Date: 03/30/23 [facility] H[facility] Details Patient comes in today for his follow up visit States that he feels okay He denies any headaches or dizziness Denies any exertional chest pains or SOB No nausea/vomiting, no abdominal pain No change in bowel habits noted Still has chronic low back pains but states that he has been able to manage his lower back so far Had his follow up labs done last week - to discuss his results [facility] Medical History Palpitations Dermatochalasis of both upper eyelids Vitamin D deficiency Dizziness Overweight (BMI 25.0-29.9) Insomnia Sensorineural hearing loss (SNHL) of both ears Osteoarthritis Allergic rhinitis GERD without esophagitis Benign prostatic hyperplasia Peripheral neuropathy Lumbar degenerative disc disease Bilateral lower extremity edema Coronary artery disease Benign essential hypertension Pure hypercholesterolemia Surgical History Status post transcatheter aortic valve replacement S/P CABG x 5 History of aortic valve replacement with bioprosthetic valve Family History Father CVD (cardiovascular disease) Mother Medical history unknown Social History Housing: House Alcohol intake: current Alcohol intake frequency: holidays/special occasions only Alcohol type: wine Patient Tobacco Use Status: Former Tobacco user e-Cigarette/Vaping Use: Never Used Second Hand Smoke Exposure: Yes service: Yes Current occupational status: retired Cognitive needs: No Hearing needs: No Vision needs: Yes Questionnaire Thrive Questionnaire Date Thrive assessed: 03/30/23 CHAD-7 AMB Questionnaire CHAD-7 Date CHAD - 7 assessed: 08/10/23 Feeling nervous, anxious, or on edge: 0 = Not at all Not being able to stop or control worryin = Not at all Worrying too much about different things: 0 = Not at all Trouble relaxin = Not at all Being so restless that it is hard to sit still: 0 = Not at all Becoming easily annoyed or irritable: 0 = Not at all Feeling afraid as if something awful might happen: 0 = Not at all Total CHAD-7 score (0-4 normal; 5-9 mild; 10-14 moderate; 15-21 severe): 0 Source: Developed by Drs. Patrick Osorio, Lashae Davila, Krishna Webster and colleagues, with an educational kacie from [employer]. Review of Systems Const Denies chills, Denies fatigue, Denies fever(s) and Denies headache(s) ENT Denies dysphagia, Denies dizziness, Denies otalgia, Denies headache(s), Denies neck pain, Denies odynophagia and Denies sore throat Card Denies chest pain, Denies irregular heart rhythm (symptoms have improved with Metoprolol), Denies palpitations and Denies dyspnea Resp Denies cough, Denies pain on inspiration and Denies dyspnea GI Denies abdominal pain, Denies constipation, Denies dysphagia, Denies diarrhea, Denies nausea, Denies odynophagia and Denies vomiting Denies dysuria, Denies nocturia and Denies urinary frequency Musc Reports back pain (over the lower back - chronic) and Denies neck pain Skin/Breast Denies rash Neuro Denies dizziness and Denies headache(s) Psych Denies anxiety Endo Denies fatigue and Denies palpitations Physical exam (Primary Care) Vital Signs: Last Vital Signs Pulse 61 08/10/23 13:07 BP 118/70 08/10/23 13:07 Pulse Ox 98 08/10/23 13:07 Oxygen Delivery Method Room Air 08/10/23 13:07 BMI result Body Mass Index 24.3 Tobacco/Smoking Status: Tobacco use Status Tobacco use date assessed 03/30/23 08/10/23 13:06 Patient Tobacco Use Status Former Tobacco user 08/10/23 13:06 e-Cigarette/Vaping Use Never Used 08/10/23 13:06 Thrive Assessment: Date of Thrive Assessment Date Thrive assessed 03/30/23 08/10/23 13:06 Const General: no acute distress and alert HENMT Ears: TM's normal bilaterally and EAC's normal Throat: Yes posterior oropharynx normal and Yes tonsils normal (no TP congestion noted) Neck Neck: Yes no lymphadenopathy and Yes supple Resp Auscultation: clear to auscultation bilaterally, no rales and no wheezes Cardio Rate: regular rate Rhythm: regular rhythm Heart sounds: Murmur heart sound present systolic early and soft GI Palpation (GI): Soft to palpation and nontender Auscultation: normal bowel sounds General: Yes no CVA tenderness Back/Spine/Pelvis Back: no CVA tenderness Thoracic/Lumbar Spine: lumbar spinal tenderness Skin Rashes: no rashes Extrem General: Yes no clubbing, cyanosis or edema Results Reviewed Results Reviewed: Laboratory Tests 08/01/23 09:40 WBC 6.7 Hgb 14.0 Hct 41.7 L Plt Count 146 L Sodium 144 Potassium 4.0 Creatinine 1.00 Estimated GFR > 60 Fasting Glucose 97 Calcium 9.4 AST 38 H ALT 37 Triglycerides 78 Cholesterol 129 LDL Cholesterol, Calc 67 HDL Cholesterol 47 25-OH Vitamin D Total 39.1 TSH 3.87 Ur Specific [place] 1.020 Urine Protein Trace Urine Glucose (UA) Negative Urine Blood Negative Urine Nitrite Negative Ur Leukocyte Esterase Negative Assessment and Plan Assessment & Plan (1) Coronary artery disease: Comment: S/P CABG (5-vessel) in 2003 Code(s): I25.10 - Atherosclerotic heart disease of yocha dehe coronary artery without angina pectoris Qualifiers: Coronary Disease-Associated Artery/Lesion type: y[place] dehe artery [place] vs. transplanted heart: y[place] dehe heart Associated angina: without angina Qualified Code(s): I25.10 - Atherosclerotic heart disease of y[place] dehe coronary artery without angina pectoris Plan: S/P CABG (5-vessel) in 2003 Coronary angiogram done on 12/02/2022 revealed 80% stenosis of the proximal LAD, LMCA and ostial diagonal, 70% stenosis of the proximal Cx and 99% stenosis of the ostial RCA Continue Aspirin 81 mg QD and aggressive risk factor modification Follow up with cardiology as scheduled (2) Pure hypercholesterolemia: Code(s): E78.00 - Pure hypercholesterolemia, unspecified Plan: Results of his labs done last week reviewed and discussed with patient Reinforced low cholesterol diet Continue Rosuvastatin 40 mg QD and Ezetimibe 10 mg QD Will recheck his labs and fasting lipids in 4 months for follow up (3) Benign essential hypertension: Code(s): I10 - Essential (primary) hypertension Plan: Reinforced low sodium diet - goal is systolic BP of at least 140 to 150 mm or less Continue Amlodipine 2.5 mg QD; was also started on Metoprolol ER 25 mg 1/2 tablet QD but this was more for his palpitations He was also on Lisinopril 2.5 mg before but he stopped taking it after he developed recurrent dizziness while on the Rx (4) Palpitations: Code(s): R00.2 - Palpitations Plan: 3 day Holter monitor done last month revealed (+) frequent supraventricular ectopy with very brief run and frequent ventricular ectopy with a burden of 1.1%. Couplets noted, some triplets, bigeminy, trigeminy. Longest run was 3 beats, with no pauses or high-grade heart blocks Patient was started on Metoprolol ER 25 mg 1/2 tablet QD by cardiology and he states that his symptoms seem to have improved a lot since To continue on Metoprolol ER 25 mg 1/2 tablet QD Follow up with cardiology as scheduled (5) Severe aortic regurgitation: Code(s): I35.1 - Nonrheumatic aortic (valve) insufficiency Plan: S/P TAVR at [facility] in December 2022 with complete resolution of all of his previous cardiac symptoms since his valve replacement surgery Repeat echocardiogram done a few months ago revealed a normal left ventricular systolic function, with the visually estimated ejection fraction between 55- 60%The mid anteroseptal segment is hypokinetic and a bioprosthetic aortic valve is present - the prosthetic aortic valve appears to be functioning normally Follow up with cardiology as scheduled (6) GERD without esophagitis: Code(s): K21.9 - Gastro-esophageal reflux disease without esophagitis Plan: Dietary restrictions reinforced Continue Omeprazole 20 mg QD (7) Lumbar degenerative disc disease: Code(s): M51.36 - Other intervertebral disc degeneration, lumbar region Plan: Reinforced activity and weight-lifting restrictions States that he is still able to put up with his low back pain, which he's had for years Repeat lumbar spine x-rays done in 2021 revealed (+) dextrocurvature of the lumbar spine centered at the L2 vertebral body and minimal grade 1 anterolisthesis of L4 on L5 that are unchanged from previous. There are also multilevel degenerative disc disease and bilateral facet arthropathy that have slightly progressed compared to the prior examination He has been to physical therapy in the past with only partial improvement of his low back pain; states that he continues to do the back exercises and stretching that he was taught by physical therapy previously on a regular basis help manage his back pain Patient has been advised that if his back pain persist or continues to get worse, we can consider referring him back to physical therapy or send him for an MRI of the lumbar spine for further evaluation (8) Insomnia: Code(s): G47.00 - Insomnia, unspecified Qualifiers: Insomnia type: unspecified Qualified Code(s): G47.00 - Insomnia, unspecified Plan: Sleep hygiene reinforced Continue Zolpidem 10 mg Q HS PRN (9) Anxiety: Code(s): F41.9 - Anxiety disorder, unspecified Plan: Continue Sertraline 25 mg QD Plan Follow up in 4 months Orders: Orders Complete Blood Count Auto Diff 4 Months D64.9 - Anemia, unspecified Comprehensive [place]. Panel Fast 4 Months E78.00 - Pure hypercholesterolemia, unspecified Lipid Panel 4 Months E78.00 - Pure hypercholesterolemia, unspecified TSH reflex Free T4 4 Months E78.00 - Pure hypercholesterolemia, unspecified Vitamin D 25-OH Total 4 Months E55.9 - Vitamin D deficiency, unspecified Vitamin B12 and Folate 4 Months E53.8 - Deficiency of other specified B group vitamins UA CC w/rflx Micro + Cult 4 Months R30.0 - Dysuria Referrals Speech and Hearing Referral H91.90 - Unspecified hearing loss, unspecified ear Coding Level of Care Code Est Pt Level 4 (20029) Complex EM visit Add On G2211 Diagnoses Coronary artery disease involving yocha dehe coronary artery of yocha dehe heart without angina pectoris I25.10 Coronary Disease-Associated Artery/Lesion type: y[place] dehe artery [place] vs. transplanted heart: y[place] dehe heart Associated angina: without angina Pure hypercholesterolemia E78.00 Benign essential hypertension I10 Palpitations R00.2 Severe aortic regurgitation I35.1 GERD without esophagitis K21.9 Lumbar degenerative disc disease M51.36 Insomnia, unspecified type G47.00 Insomnia type: unspecified Anxiety F41.9
[2023-08-10 13:07] VITALS: BP 118/70; PULSE 61; O2SAT 98; BMI 24.3
== END 2023-08-10 13:53 | disposition home or self-care (01) ==
PROVIDERS: PCP Internal Medicine; Visit Provider Internal Medicine
DX: I25.10 Atherosclerotic heart disease of native coronary artery without angina pectoris (principal); E78.00 Pure hypercholesterolemia, unspecified; I10 Essential (primary) hypertension; R00.2 Palpitations; I35.1 Nonrheumatic aortic (valve) insufficiency; K21.9 Gastro-esophageal reflux disease without esophagitis; M51.36 Other intervertebral disc degeneration, lumbar region; G47.00 Insomnia, unspecified; F41.9 Anxiety disorder, unspecified
CPT/HCPCS: 99214; G2211

== ENCOUNTER 2023-09-05 08:40 | Outpatient (REF) | payer MEDICARE, SELFPAY ==
--- NOTE | 2023-09-05 12:38 | MHC.AU.HA3 ---
Hearing Instrument Follow-Up- Binaural Date of Visit: 09/05/23 Right Ear: Abisai, Model, Color, Serial Number: Kali Izaguirre [id number]-R Janelle Christy SN [id number] His 's that he is using: Phonak Audeo P90 R :[id number] Estate Planning Attorney Repair Warranty: 01/11/2020 Estate Planning Attorney Loss and Damage Warranty: 01/11/2020 [facility] Service Plan: Battery Size: Rechargeable Client Resource Specialist/Slim Tube: 2xS Earmold/Dome/CShell/SlimTip:Phonak C-Shell AUC Warranty 09/07/2020 Type of Wax Guard: Cerustop Dispensed By: [facility] Date of Fittin10/27/2016 Left Ear: Abisai, Model, Color, Serial Number: Kali Blackwoodo Emiliana0-R Janelle Christy SN [id number] His 's that he is [id number] Estate Planning Attorney Repair Warranty: 01/11/2020 Estate Planning Attorney Loss and Damage Warranty: 01/11/2020 [facility] Service Plan: Battery Size: Rechargeable Client Resource Specialist/Slim Tube: 2xS Earmold/Dome/CShell/SlimTip: Phonak C-Shell AUA Warranty 09/07/2020 Type of Wax Guard: Cerustop Dispensed By: [facility] Date of Fittin10/27/2016 Follow-Up Summary: Here for evaluation. Hoping to use his 's hearing aids, she recently, he notes they are better than his. Cleaned and checked both sets of aids, listening check positive. Adjusted to updated audiogram. Patrick's c-shells are not compatible with Audeo P's. Advised of this. He would like to order new c-shells to use with his 's aids. Quoted $290. Impressions taken without incidence Au. Recommendations: Recommendations: Patient will be contacted when materials have arrived. Diagnosis Code(s): Primary Diagnosis: H90.3 Bilateral Sensorineural Hearing Loss Signature: Provider: Monique Shaw, [facility]
== END 2023-09-05 08:41 | disposition home or self-care (01) ==
LOC: HO.SH 08:40
PROVIDERS: Visit Provider Internal Medicine
DX: Z01.118 Encounter for examination of ears and hearing with other abnormal findings (principal); H90.3 Sensorineural hearing loss, bilateral
CPT/HCPCS: 92557

== ENCOUNTER 2023-09-20 09:48 | Outpatient (REF) | payer SELFPAY | END 2023-09-20 09:49 | disposition home or self-care (01) | LOC: HO.HAP 09:48 | PROVIDERS: Visit Provider Internal Medicine | DX: Z46.1 Encounter for fitting and adjustment of hearing aid (principal); H90.3 Sensorineural hearing loss, bilateral | CPT/HCPCS: V5264 ==

== ENCOUNTER 2023-11-11 10:29 | Outpatient (REF) | payer SELFPAY | END 2023-11-11 10:30 | disposition home or self-care (01) | LOC: HO.HAP 10:29 | PROVIDERS: Visit Provider Internal Medicine | DX: Z13.89 Encounter for screening for other disorder (principal) ==

== ENCOUNTER 2023-11-14 09:12 | Outpatient (REF) | payer SELFPAY | END 2023-11-14 09:13 | disposition home or self-care (01) | LOC: HO.HAP 09:12 | PROVIDERS: Visit Provider Internal Medicine | DX: Z46.1 Encounter for fitting and adjustment of hearing aid (principal); H90.3 Sensorineural hearing loss, bilateral | CPT/HCPCS: 92593 ==

== ENCOUNTER 2023-12-13 08:45 | Outpatient (REF) | payer SELFPAY ==
[2023-12-13 10:53] LABS: MANUAL DIFF FLAG NO
[2023-12-13 10:55] LABS: Appearance Urine Clear; Color Urine Yellow; Glucose Urine UA Negative (Negative); Leukocyte Esterase Urine Negative (Negative); Nitrite Urine Negative (Negative); PH 6.5 (5.0-9.0); Specific Gravity - Urine 1.015 (1.005-1.025); Urine Blood Negative (Negative); Urine Ketones Negative (Negative); Urine Protein Trace mg/dL (Neg-Trace)
[2023-12-13 11:05] LABS: Basophils Absolute Auto 0.1 X10*3/uL (0.0-0.2); Basophils Percent Auto 0.7 % (0-2); Eosinophils Absolute Auto 0.4 X10*3/uL (0.0-0.4); Eosinophils Percent Auto 5.3 % (0-4); Hematocrit 40.6 % (42.0-52.0); Hemoglobin 13.7 g/dl (14.0-18.0); Imm Gran Abs Auto 0.02 X10*3/uL (0.00-0.03); Imm Gran Pct Auto 0.3 % (0.0-0.4); Lymphocytes Absolute Auto 1.9 X10*3/uL (1.2-4.9); Lymphocytes Percent Auto 27.3 % (20-40); Mean Corpuscular HGB Conc 33.7 g/dl (31.0-36.0); Mean Corpuscular Hemoglobin 31.2 pg (27.0-33.0); Mean Corpuscular Volume 92.5 fL (80.0-98.0); Mean Platelet Volume 10.5 fL (9.4-12.4); Monocytes Absolute Auto 0.7 X10*3/uL (0.1-1.2); Monocytes Percent Auto 10.8 % (2-11); Neutrophils Absolute Auto 3.8 x10*3/uL (2.0-8.3); Neutrophils Percent Auto 55.6 % (45-73); Platelet Count 155 X10*3/uL (160-400); Red Blood Count 4.39 X10*6/uL (4.60-5.80); Red Cell Distribution Width 13.3 % (11.0-16.0); White Blood Count 6.8 X10*3/uL (4.8-10.8)
[2023-12-13 12:14] LABS: Alanine Aminotransferase 35 U/L (0-40); Albumin Level 4.1 g/dL (3.5-5.0); Alkaline Phosphatase 73 U/L (39-117); Anion Gap 12 (12-20); Aspartate Amino Transferase 43 U/L (5-37); Bilirubin Total 0.7 mg/dL (0.0-1.0); Blood Urea Nitrogen 21 mg/dL (9-16); Calcium 9.6 mg/dL (8.4-10.2); Carbon Dioxide 26 mmol/L (22-29); Chloride 108 mmol/L (96-108); Cholesterol 120 mg/dL (<200); Estimated Glomerular Filt Rate 54; Glucose Fasting 98 mg/dL (60-99); HDL Cholesterol 47 mg/dL (>40); LDL Cholesterol Calculated 58 mg/dL (<100); Potassium 3.6 mmol/L (3.3-5.1); Sodium 142 mmol/L (135-145); Total Protein 6.8 g/dL (6.5-8.0); Triglycerides 79 mg/dL (<150)
[2023-12-13 12:17] LABS: TSH reflex Free T4 4.02 uIU/mL (0.32-4.0); Vitamin D 25-OH Total 47.5 ng/mL (>30)
[2023-12-13 12:25] LABS: Folate 16.1 ng/mL (> or = 4.0); Vitamin B12 543 pg/mL (200-900)
[2023-12-13 13:34] LABS: Free T4 (Free Thyroxine) 0.85 ng/dL (0.71-1.85)
== END 2023-12-13 08:46 | disposition home or self-care (01) ==
LOC: HO.10HDL 08:45
PROVIDERS: Visit Provider Internal Medicine
DX: D64.9 Anemia, unspecified (principal); E78.00 Pure hypercholesterolemia, unspecified; E53.8 Deficiency of other specified B group vitamins; R30.0 Dysuria; E55.9 Vitamin D deficiency, unspecified
CPT/HCPCS: 36415; 80053; 80061; 81003; 82306; 82607; 82746; 84439; 84443; 85025

== ENCOUNTER 2023-12-16 09:20 | Outpatient (AMB) | payer SELFPAY ==
--- NOTE | 2023-12-16 09:27 | A.OFFPC_ITS ---
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: No Accompanied by: Self / Same As Patient Allergies No Known Allergies Allergy (Verified 12/16/23 09:57) Medication List - Last Reconciled 12/16/23 by Ceferino Braxton MD amlodipine 2.5 mg PO DAILY 90 days aspirin (Ecotrin Low Strength) 81 mg PO DAILY 90 days brimonidine 0.2% 1 drp ophthalmic (eye) bumetanide 1 mg orally 1 tablet in am and 1/2 tablet at noon time 90 days cholecalciferol (vitamin D3) 50 mcg PO BID ezetimibe (Zetia) 10 mg PO DAILY 90 days ibuprofen 800 mg PO TID metoprolol succinate ER (Toprol XL) 12.5 mg (1/2 x 25 mg) PO DAILY 90 days omeprazole 20 mg PO DAILY rosuvastatin 40 mg PO DAILY terazosin 5 mg PO DAILY Tobacco use date assessed: 12/16/23 Fall risk assessment: No Falls in past year Last assessed Fall Risk: 12/16/23 Dental Screening Dental Screen Date: 12/16/23 Did you have a dental visit in the last 12 months?: Yes Did you have a dental problem in the last 6 months where you did not have access to dental care?: No Was dental information given to patient?: Patient has dentist HPI CAD, hyperlipidemia, HTN, palpitations, GERD HPI Details Patient comes in today for his follow up visit States that he feels okay States that there are times when he feels somewhat depressed as he still misses his , who earlier this year States that this will be the first holiday season he will be spending without her Adds that he still feels tired all the time and just cannot seem to get enough energy to get going Feels that he sleeps okay but usually wakes up after sleeping for 5 to 6 hours for no particular reason He denies any headaches or dizziness Denies any exertional chest pains or SOB No nausea/vomiting, no abdominal pain No change in bowel habits noted He still has chronic low back pains but states that he has been able to manage his lower back symptoms so far Needs his Ibuprofen Rx refilled He had his follow up labs done a few days ago - to discuss his results [facility] Medical History Palpitations Dermatochalasis of both upper eyelids Vitamin D deficiency Dizziness Overweight (BMI 25.0-29.9) Insomnia Sensorineural hearing loss (SNHL) of both ears Osteoarthritis Allergic rhinitis GERD without esophagitis Benign prostatic hyperplasia Peripheral neuropathy Lumbar degenerative disc disease Bilateral lower extremity edema Coronary artery disease Benign essential hypertension Pure hypercholesterolemia Surgical History Status post transcatheter aortic valve replacement S/P CABG x 5 History of aortic valve replacement with bioprosthetic valve Family History Father CVD (cardiovascular disease) Mother Medical history unknown Social History Housing: House Alcohol intake: current Alcohol intake frequency: holidays/special occasions only Alcohol type: wine Patient Tobacco Use Status: Former Tobacco user e-Cigarette/Vaping Use: Never Used Second Hand Smoke Exposure: Yes service: Yes Current occupational status: retired Cognitive needs: No Hearing needs: No Vision needs: Yes Questionnaire PHQ-9 Over the last 2 weeks, how often have you been bothered by any of the following problems? 1. Little interest or pleasure in doing things: more than half the days 2. Feeling down, depressed, or hopeless: more than half the days 3. Trouble falling or staying asleep, or sleeping too much: more than half the days 4. Feeling tired or having little energy: more than half the days 5. Poor appetite or overeating: several days 6. Feeling bad about yourself - or that you are a failure or have let yourself or your family down: not at all 7. Trouble concentrating on things, such as reading the newspaper or watching television: not at all 8. Moving or speaking so slowly that other people could have noticed. Or the opposite - being so fidgety or restless that you have been moving around a lot more than usual: not at all 9. Thoughts that you would be better off or of hurting yourself in some way: not at all Total score: 9 Depression Screening Interpretation: Positive Depression Screening Follow-up: Existing condition and In treatment Depression Screening Done: Yes 72391 - PHQ-9 Billing: Yes Source: Developed by Drs. Patrick Osorio, Lashae Davila, Krishna Webster and colleagues, with an educational kacie from [employer]. Thrive Questionnaire Date Thrive assessed: 12/16/23 I am a: Patient What is your living situation today?: I have a steady place to live Within the past 12 months, did the food you bought not last and you didn't have the money to get more?: Never true Within the past 12 months, did you worry whether your food would run out before you got money to buy more?: Never true Do you have trouble paying for medicines?: No Do you have trouble getting transportation to medical appointments?: No Do you have trouble paying your heating and electricity bill?: No Do you have trouble taking care of your child, family member or friend?: No Do you have trouble with day-to-day activities such as bathing, preparing meals, shopping, managing finances, etc.?: No Are you currently unemployed and looking for a job?: No Are you interested in more education?: No Please select the resources that you would like help with: None Currently or been in a relationship where the following occur: No concerns reported THRIVE Score: 0 AUDIT C Alcohol Use Questionnaire (AUDIT-C) 1. How often do you have a drink containing alcohol?: Monthly or less 2. How many drinks containing alcohol do you have on a typical day when you are drinking?: 1 or 2 3. How often do you have six or more drinks on one occasion?: Never Total Score: 1 Score Reviewed/Action Taken: Yes CHAD-7 AMB Questionnaire CHAD-7 Date CHAD - 7 assessed: 12/16/23 Feeling nervous, anxious, or on edge: 0 = Not at all Not being able to stop or control worryin = Not at all Worrying too much about different things: 0 = Not at all Trouble relaxin = Not at all Being so restless that it is hard to sit still: 0 = Not at all Becoming easily annoyed or irritable: 0 = Not at all Feeling afraid as if something awful might happen: 0 = Not at all Total CHAD-7 score (0-4 normal; 5-9 mild; 10-14 moderate; 15-21 severe): 0 Source: Developed by Drs. Patrick Osorio, Lashae aDvila, Krishna Webster and colleagues, with an educational kacie from [employer]. Review of Systems Const Denies chills, Reports fatigue, Denies fever(s) and Denies headache(s) ENT Denies dysphagia, Denies dizziness, Denies otalgia, Denies headache(s), Denies neck pain, Denies odynophagia and Denies sore throat Card Denies chest pain, Denies irregular heart rhythm (symptoms have improved with Metoprolol), Denies palpitations and Denies dyspnea Resp Denies chest congestion, Denies cough and Denies dyspnea GI Denies abdominal pain, Denies constipation, Denies dysphagia, Denies diarrhea, Denies nausea, Denies odynophagia and Denies vomiting Denies dysuria, Denies nocturia and Denies urinary frequency Musc Reports back pain (over the lower back - chronic) and Denies neck pain Skin/Breast Denies rash Neuro Denies dizziness and Denies headache(s) Psych Denies anxiety Endo Reports fatigue and Denies palpitations Physical exam (Primary Care) Vital Signs: Last Vital Signs Pulse 67 12/16/23 09:28 BP 118/70 12/16/23 09:28 Pulse Ox 98 12/16/23 09:28 Oxygen Delivery Method Room Air 12/16/23 09:28 BMI result Body Mass Index 24.2 Tobacco/Smoking Status: Tobacco use Status Tobacco use date assessed 12/16/23 12/16/23 09:36 Patient Tobacco Use Status Former Tobacco user 12/16/23 09:36 e-Cigarette/Vaping Use Never Used 12/16/23 09:36 PHQ-9: PHQ-9 Score PHQ-9: Total score 9 12/16/23 09:36 Depression Screening Interpretation: Positive Depression Screening Follow-up: Existing condition and In treatment Thrive Assessment: Date of Thrive Assessment Date Thrive assessed 12/16/23 12/16/23 09:36 Currently or been in a relationship where the following occur: No concerns reported Const General: no acute distress and alert HENMT Ears: TM's normal bilaterally and EAC's normal Throat: Yes posterior oropharynx normal and Yes tonsils normal (no TP congestion noted) Neck Neck: Yes no lymphadenopathy and Yes supple Thyroid: Thyroid normal Resp Auscultation: clear to auscultation bilaterally, no rales and no wheezes Cardio Rate: regular rate Rhythm: regular rhythm Heart sounds: Murmur heart sound present systolic early and soft GI Palpation (GI): Soft to palpation and nontender Auscultation: normal bowel sounds General: Yes no CVA tenderness Back/Spine/Pelvis Back: no CVA tenderness Thoracic/Lumbar Spine: lumbar spinal tenderness Skin Rashes: no rashes Extrem General: Yes no clubbing, cyanosis or edema Results Reviewed Results Reviewed: Laboratory Tests 12/13/23 12/13/23 08:30 08:48 WBC 6.8 Hgb 13.7 L Hct 40.6 L Plt Count 155 L Sodium 142 Potassium 3.6 Creatinine 1.27 Estimated GFR 54 Fasting Glucose 98 Calcium 9.6 AST 43 H ALT 35 Triglycerides 79 Cholesterol 120 LDL Cholesterol, Calc 58 HDL Cholesterol 47 Vitamin B12 543 25-OH Vitamin D Total 47.5 TSH 4.02 H Free T4 0.85 Ur Specific [place] 1.015 Urine Protein Trace Urine Glucose (UA) Negative Urine Blood Negative Urine Nitrite Negative Ur Leukocyte Esterase Negative Coding Level of Care Code Est Pt Level 4 (30675) Diagnoses Coronary artery disease involving enterprise coronary artery of enterprise heart without angina pectoris I25.10 Coronary Disease-Associated Artery/Lesion type: enterprise artery [place] vs. transplanted heart: enterprise heart Associated angina: without angina Pure hypercholesterolemia E78.00 Benign essential hypertension I10 Palpitations R00.2 Severe aortic regurgitation I35.1 GERD without esophagitis K21.9 Degeneration of intervertebral disc of lumbar region with discogenic back pain M51.360 Disc-related pain type: discogenic back pain only Vitamin D deficiency E55.9 Insomnia, unspecified type G47.00 Insomnia type: unspecified Anxiety F41.9 Assessment & Plan Assessment & Plan (1) Coronary artery disease: Comment: S/P CABG (5-vessel) in 2003 Code(s): I25.10 - Atherosclerotic heart disease of enterprise coronary artery without angina pectoris Category: Medical Qualifiers: Coronary Disease-Associated Artery/Lesion type: enterprise artery [place] vs. transplanted heart: enterprise heart Associated angina: without angina Qualified Code(s): I25.10 - Atherosclerotic heart disease of enterprise coronary artery without angina pectoris Plan: S/P CABG (5-vessel) in 2003 Coronary angiogram done on 12/02/2022 revealed 80% stenosis of the proximal LAD, LMCA and ostial diagonal, 70% stenosis of the proximal Cx and 99% stenosis of the ostial RCA Continue Aspirin 81 mg QD and aggressive risk factor modification Follow up with cardiology as scheduled (2) Pure hypercholesterolemia: Code(s): E78.00 - Pure hypercholesterolemia, unspecified Category: Medical Plan: Results of his labs done a few days ago reviewed and discussed with patient Reinforced low cholesterol diet Continue Rosuvastatin 40 mg QD and Ezetimibe 10 mg QD Will recheck his labs and fasting lipids in 4 months for follow up (3) Benign essential hypertension: Code(s): I10 - Essential (primary) hypertension Category: Medical Plan: Reinforced low sodium diet - goal is systolic BP of at least 140 to 150 mm or less Continue Amlodipine 2.5 mg QD; he is also on Metoprolol ER 25 mg 1/2 tablet QD but this was more for his palpitations He was also on Lisinopril 2.5 mg before but he stopped taking it after he developed recurrent dizziness while on the Rx (4) Palpitations: Code(s): R00.2 - Palpitations Category: Medical Plan: 3 day Holter monitor done a few months ago revealed (+) frequent supraventricular ectopy with very brief run and frequent ventricular ectopy with a burden of 1.1%. Couplets noted, some triplets, bigeminy, trigeminy. Longest run was 3 beats, with no pauses or high-grade heart blocks Patient was started on Metoprolol ER 25 mg 1/2 tablet QD by cardiology and he states that his symptoms seem to have improved a lot since - to continue Metoprolol ER 25 mg 1/2 tablet QD Follow up with cardiology as scheduled (5) Severe aortic regurgitation: Comment: S/P TAVR in 12/2022 Code(s): I35.1 - Nonrheumatic aortic (valve) insufficiency Category: Medical Plan: S/P TAVR at [facility] in December 2022 with complete resolution of all of his previous cardiac symptoms since his valve replacement surgery Repeat echocardiogram done a few months ago revealed a normal left ventricular systolic function, with the visually estimated ejection fraction between 55- 60%The mid anteroseptal segment is hypokinetic and a bioprosthetic aortic valve is present - the prosthetic aortic valve appears to be functioning normally Follow up with cardiology as scheduled (6) GERD without esophagitis: Code(s): K21.9 - Gastro-esophageal reflux disease without esophagitis Category: Medical Plan: Dietary restrictions reinforced Continue Omeprazole 20 mg QD (7) Lumbar degenerative disc disease: Code(s): M51.36 - Other intervertebral disc degeneration, lumbar region Category: Medical Qualifiers: Disc-related pain type: discogenic back pain only Qualified Code(s): M51.360 - Other intervertebral disc degeneration, lumbar region with discogenic back pain only Plan: Reinforced activity and weight-lifting restrictions States that he is still able to put up with his low back pain, which he's had for years Repeat lumbar spine x-rays done in 2021 revealed (+) dextrocurvature of the lumbar spine centered at the L2 vertebral body and minimal grade 1 anterolisthesis of L4 on L5 that are unchanged from previous. There are also multilevel degenerative disc disease and bilateral facet arthropathy that have slightly progressed compared to the prior examination He has been to physical therapy in the past with only partial improvement of his low back pain; states that he continues to do the back exercises and stretching that he was taught by physical therapy previously on a regular basis help manage his back pain Patient has been advised that if his back pain persist or continues to get worse, we can consider referring him back to physical therapy or send him for an MRI of the lumbar spine for further evaluation (8) Vitamin D deficiency: Code(s): E55.9 - Vitamin D deficiency, unspecified Category: Medical Plan: Continue OTC Vitamin D supplements BID (9) Insomnia: Code(s): G47.00 - Insomnia, unspecified Category: Medical Qualifiers: Insomnia type: unspecified Qualified Code(s): G47.00 - Insomnia, unspecified Plan: Sleep hygiene reinforced Continue Zolpidem 10 mg Q HS PRN (10) Anxiety: Code(s): F41.9 - Anxiety disorder, unspecified Category: Medical Plan: Continue Sertraline 25 mg QD Plan Follow up in 4 months Orders: Orders Comprehensive [place]. Panel Fast 4 Months E78.00 - Pure hypercholesterolemia, unspecified UA CC w/rflx Micro + Cult 4 Months R30.0 - Dysuria Complete Blood Count Auto Diff 4 Months D64.9 - Anemia, unspecified Lipid Panel 4 Months E78.00 - Pure hypercholesterolemia, unspecified TSH reflex Free T4 4 Months E78.00 - Pure hypercholesterolemia, unspecified Vitamin D 25-OH Total 4 Months E55.9 - Vitamin D deficiency, unspecified Vitamin B12 and Folate 4 Months E53.8 - Deficiency of other specified B group vitamins Medications: Refilled ibuprofen 800 mg PO TID 270 tabs 1RF ibuprofen 800 mg PO TID 270 tabs 1RF
[2023-12-16 09:28] VITALS: BP 118/70; PULSE 67; O2SAT 98; BMI 24.2
== END 2023-12-16 10:15 | disposition home or self-care (01) ==
LOC: HO.HMCH 09:21
PROVIDERS: PCP Internal Medicine; Visit Provider Internal Medicine
DX: I25.10 Atherosclerotic heart disease of native coronary artery without angina pectoris (principal); E78.00 Pure hypercholesterolemia, unspecified; I10 Essential (primary) hypertension; R00.2 Palpitations; I35.1 Nonrheumatic aortic (valve) insufficiency; K21.9 Gastro-esophageal reflux disease without esophagitis; M51.360 Other intervertebral disc degeneration, lumbar region with discogenic back pain only; E55.9 Vitamin D deficiency, unspecified; G47.00 Insomnia, unspecified; F41.9 Anxiety disorder, unspecified

== ENCOUNTER → 2023-12-16 09:20 | Outpatient (BNVA) | payer SELFPAY | PROVIDERS: PCP Internal Medicine; Visit Provider Internal Medicine | DX: I25.10 Atherosclerotic heart disease of native coronary artery without angina pectoris (principal); E78.00 Pure hypercholesterolemia, unspecified; I10 Essential (primary) hypertension; R00.2 Palpitations; I35.1 Nonrheumatic aortic (valve) insufficiency; K21.9 Gastro-esophageal reflux disease without esophagitis; M51.360 Other intervertebral disc degeneration, lumbar region with discogenic back pain only; E55.9 Vitamin D deficiency, unspecified; G47.00 Insomnia, unspecified; F41.9 Anxiety disorder, unspecified; Z79.899 Other long term (current) drug therapy; Z95.1 Presence of aortocoronary bypass graft; Z95.2 Presence of prosthetic heart valve | CPT/HCPCS: 96127; 99212 ==

== ENCOUNTER 2024-03-02 09:34 | Outpatient (AMB) | payer MEDICARE, SELFPAY ==
[2024-03-02 09:38] VITALS: BP 120/80; PULSE 66; BMI 23.6
--- NOTE | 2024-03-02 09:38 | A.OFFVIS_ITS ---
Vital Signs 03/02/24 09:38 Height 6 ft Weight 174 lb 2.643 oz BMI 23.6 BP 120/80 Blood Pressure Location Lt brachial Position Sitting Pulse 66 Intake Visit Reasons: 6 mth f/up Intake Note: 6 month follow-up feeling ok months ago had a day with chest pain sometimes has palpitations Shading Painter Required: No Allergies No Known Allergies Allergy (Verified 12/16/23 09:57) Medication List - Last Reconciled 03/02/24 by Juan Alberto Liz MD amlodipine 2.5 mg PO DAILY 90 days amoxicillin 2,000 mg PO ONCE aspirin (Ecotrin Low Strength) 81 mg PO DAILY 90 days brimonidine 0.2% 1 drp ophthalmic (eye) bumetanide 1 mg orally 1 tablet in am and 1/2 tablet at noon time 90 days cholecalciferol (vitamin D3) 50 mcg PO BID ezetimibe (Zetia) 10 mg PO DAILY 90 days ibuprofen 800 mg PO TID metoprolol succinate ER (Toprol XL) 12.5 mg (1/2 x 25 mg) PO DAILY 90 days omeprazole 20 mg PO DAILY rosuvastatin 40 mg PO DAILY terazosin 5 mg PO DAILY HPI Comments Details: Patrick comes for follow-up. Overall he has been doing well. He has been having increasing heartburn around 6-7 p.m.. He takes his a.m. Prilosec. He then has to take evening Pepcid or Tums. He complains of occasional palpitation. He had 1 episode of severe chest pain when he was lying down at nighttime and which got relieved with Tums. He denies any exertional chest pain. Exercise regularly. Denies any lightheadedness, syncope. Denies any bleeding issues or neurologic events. [facility] Medical History (Updated 03/02/24 @ 10:02 by Juan Alberto Liz MD) Severe aortic regurgitation Palpitations Dermatochalasis of both upper eyelids Vitamin D deficiency Dizziness Overweight (BMI 25.0-29.9) Insomnia Sensorineural hearing loss (SNHL) of both ears Osteoarthritis Allergic rhinitis GERD without esophagitis Benign prostatic hyperplasia Peripheral neuropathy Lumbar degenerative disc disease Bilateral lower extremity edema Coronary artery disease Benign essential hypertension Pure hypercholesterolemia Surgical History (Updated 03/02/24 @ 10:02 by Juan Alberto Liz MD) History of aortic valve replacement with bioprosthetic valve Status post transcatheter aortic valve replacement S/P CABG x 5 Family History Father CVD (cardiovascular disease) Mother Medical history unknown Social History Housing: House Alcohol intake: current Alcohol intake frequency: holidays/special occasions only Alcohol type: wine Patient Tobacco Use Status: Former Tobacco user e-Cigarette/Vaping Use: Never Used Second Hand Smoke Exposure: Yes service: Yes Current occupational status: retired Cognitive needs: No Hearing needs: No Vision needs: Yes Review of Systems Const Denies chills, Denies fatigue, Denies fever(s), Denies frequent falls, Denies weakness, Denies weight gain and Denies weight loss ENT Denies dizziness Card Denies chest pain, Denies leg edema, Denies lightheadedness, Denies palpitations, Denies dyspnea, Denies dyspnea on exertion, Denies orthopnea and Denies other (loss of consciousness) Resp Denies cough, Denies dyspnea and Denies dyspnea on exertion GI Denies hematochezia and Denies change in stool character Musc Denies abnormal gait, Denies muscle weakness, Denies numbness, Denies radiating pain into limb and Denies tingling Neuro Denies abnormal gait, Denies dizziness, Denies frequent falls, Denies numbness, Denies tingling and Denies weakness Endo Denies fatigue and Denies palpitations Physical Exam Vital Signs: Last Vital Signs Pulse 66 03/02/24 09:38 BP 120/80 03/02/24 09:38 BMI result Body Mass Index 23.6 Const General: cooperative, comfortable, no acute distress, alert, awake, Physically active and well groomed Nutritional Appearance: average body habitus Orientation/consciousness: patient oriented x3 Limitations: no limitations Neck Neck: Yes trachea midline, Yes supple and Yes no JVD Chest Chest palpation & inspection: normal inspection of the chest and other (Well- healed sternotomy scar) Resp Effort & Inspection: normal respiratory effort Auscultation: clear to auscultation bilaterally Cardio Jugular venous distension: no JVD Palpation: normal PMI and other (Hyperdynamic) Rate: regular rate Rhythm: regular rhythm Heart sounds: S1 normal heart sound present, S2 normal heart sound present and Murmur heart sound present systolic early Bruits: carotid bruit on the left GI Auscultation: normal bowel sounds Skin General skin exam: no rashes or lesions noted Neuro General: patient oriented x3 and no focal motor deficits Extrem General: Yes no clubbing, cyanosis or edema Psych Appearance: grossly normal Affect: Anxious affect present Assessment & Plan Assessment & Plan (1) Status post transcatheter aortic valve replacement: Comment: December 2022 for failed bioprosthetic aortic valve with severe aortic regurgitation Code(s): Z95.2 - Presence of prosthetic heart valve Category: Surgical Plan: Status post transcatheter aortic valve replacement for failure of bioprosthetic aortic valve severe aortic regurgitation. Clinically seems to be working well. Currently doing well. Follow-up echocardiogram near future. Continue low-dose aspirin therapy. SBE prophylaxis as per ACC/[facility] guidelines. Continue risk factor modification. (2) (HFpEF) heart failure with preserved ejection fraction: Code(s): I50.30 - Unspecified diastolic (congestive) heart failure Category: Medical Plan: Heart failure preserved ejection fraction, clinically euvolemic and well compensated. Continue current low-dose diuretic therapy. Daily weight monitoring avoidance salt loading was discussed. Continue monitor renal function every 6 months. Continue aggressive blood pressure control. Continue maintain activity level as tolerated. Advised to call me with worsening symptoms. (3) Coronary artery disease: Comment: S/P CABG (5-vessel) in 2003 Code(s): I25.10 - Atherosclerotic heart disease of [place] coronary artery without angina pectoris Category: Medical Qualifiers: Coronary Disease-Associated Artery/Lesion type: [place] artery [place] vs. transplanted heart: [place] heart Associated angina: without angina Qualified Code(s): I25.10 - Atherosclerotic heart disease of [place] coronary artery without angina pectoris Plan: CAD status post prior five-vessel coronary artery bypass grafting. Diagonal graft could not be cannulated on the angiogram. However his current chest pain syndrome appears to be atypical and not exertional in nature. Mostly related to heartburn. Advised to increase his Prilosec to twice a day and follow-up with you. If he develops different kind of chest pain may require further workup and/or intervention on the 2nd diagonal branch or left main. Continue current metoprolol therapy. Continue high-intensity statin therapy. Continue low-dose aspirin therapy. Continue amlodipine therapy. Will follow up in the clinic in 6 months time, sooner p.r.n.. Thank you for allowing me to partake in his care Medications: New amoxicillin 2,000 mg (4 x 500 mg) PO ONCE 8 caps 2RF Pre dental Coding Level of Care Code Est Pt Level 4 (46196) Complex EM visit Add On G2211 Diagnoses Status post transcatheter aortic valve replacement Z95.2 (HFpEF) heart failure with preserved ejection fraction I50.30 Coronary artery disease involving [place] coronary artery of [place] heart without angina pectoris I25.10 Coronary Disease-Associated Artery/Lesion type: [place] artery [place] vs. transplanted heart: [place] heart Associated angina: without angina
== END 2024-03-02 10:16 | disposition home or self-care (01) ==
PROVIDERS: PCP Internal Medicine; Visit Provider Internal Medicine Cardiovascular Disease
DX: Z95.2 Presence of prosthetic heart valve (principal); I50.30 Unspecified diastolic (congestive) heart failure; I25.10 Atherosclerotic heart disease of native coronary artery without angina pectoris
CPT/HCPCS: 99214; G2211

== ENCOUNTER → 2024-03-02 09:34 | Outpatient (BNVA) | payer MEDICARE, SELFPAY | PROVIDERS: PCP Internal Medicine; Visit Provider Internal Medicine Cardiovascular Disease | DX: I50.30 Unspecified diastolic (congestive) heart failure (principal); I25.10 Atherosclerotic heart disease of native coronary artery without angina pectoris; Z95.2 Presence of prosthetic heart valve | CPT/HCPCS: 99212 ==

== ENCOUNTER → 2024-03-08 12:42 | Outpatient (REF) | payer MEDICARE, SELFPAY ==
--- NOTE | 2024-03-08 12:49 | CA_ITS ---
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 Normal LV ejection fraction of 60 65% with pseudonormal filling pattern 2. Mild right-sided chamber enlargement with preserved RV contractility 3. Normally function bioprosthetic aortic valve 4. Mild mitral regurgitation 5. Normal RV systolic pressure 6. Mildly dilated ascending aorta at 4 cm 7. No gross pericardial effusion Findings Left Ventricle Normal left ventricular size, thickness, and systolic function. The visually estimated ejection fraction is between 60-65%. There is paradoxical septal motion consistent with post-operative status. Spectral Doppler is indicative of a pseudonormal filling pattern. E/E prime ratio is between 8 and 15 consistent with indeterminate filling pressures. There is mild septal asymmetric hypertrophy. Right Ventricle Mildly increased right ventricular cavity size. There is normal right ventricular systolic function. Atria The left atrium is likely dilated. There is no evidence of interatrial shunt. The right atrium is mildly dilated. Aortic Valve A bioprosthetic aortic valve is present. The prosthetic aortic valve appears to be functioning normally. There is no aortic valve stenosis. The mean gradient is 10 mmHg. There is no aortic valve regurgitation. Mitral Valve There is mild anterior and posterior mitral leaflet thickening. There is mild mitral annular calcification. There is mild mitral valve regurgitation. There is no mitral valve stenosis. Pulmonic Valve The pulmonic valve is likely normal. There is trace pulmonic valve regurgitation. Tricuspid Valve Normal tricuspid valve structure. There is mild to moderate tricuspid valve regurgitation. The right ventricular systolic pressure is normal. The right ventricular systolic pressure is 26 mmHg. Normal right atrial pressure. There is no evidence of pulmonary hypertension. Great Vessels The pulmonary artery was not well visualized. There is mild dilatation of the ascending aorta measuring 4.00 cm. Venous The inferior vena cava is normal in size and collapses greater than 50% with inspiration. Pericardium/Pleural There is no evidence of pericardial effusion. Prior Study Comparison No significant change compared to prior study dated: 02/28/2023. Measurements 2D Linear Measurements IVSd: 0.87 0.6-0.9/0.6-1.0 cm LVIDd: 4.68 3.9-5.3/4.2-5.9 cm LVIDd Index: 2.33 2.4-3.2/2.2-3.1 cm/m2 LVIDs: 2.96 2.0-3.6 cm LVPWd: 0.62 0.7-1.1 cm LA Diam: 4.00 2.7-3.8/3.0-4.0 cm LAIDs Index: 1.99 1.5-2.3 cm/m2 LV Mass: 137.20 67-162/88-224 g LV Mass Index: 68.26 43-95/49-115 g/m2 LVOT Diam: 2.20 3.0+(-)1.3 cm 2D Systolic Function EF 4C: 64.90 >55% EF 2C: 65.40 >55% EF BiP: 65.00 >55% Mitral Valve MV Pk E: 1.05 MV PK A: 0.92 MV Decel Time: 213.00 E/A: 1.10 E'Lateral: 10.20 E'Medial: 6.20 E/E' Med: 16.90 E/E' Lat: 10.30 PHT: 62.00 MVA PHT: 3.55 Decel [place]: 4.95 Aortic Valve AoV Pk Floyd: 2.23 AoV Mn Floyd: 1.48 AoV VTI: 0.52 AoV Pk Grad: 20.00 Aov Mn Grad: 10.00 MOOK Cont.VTI: 1.92 LVOT LVOT Pk Floyd: 1.13 LVOT Mn Floyd: 0.80 LVOT VTI: 0.26 LVOT Pk Grad: 5.00 LVOT Mn Grad: 3.00 LVOT Diam: 2.20 LVOT Area: 3.80 Diastolic Function MV Pk E: 1.05 MV Pk A: 0.92 E/A: 1.10 E'Medial: 6.20 E/E' Med: 16.90 E' Laterial: 10.20 E/E' Lat: 10.30 Right Ventricle TAPSE (mm): 18.00 TVS' Floyd: 11.60 Tricuspid Valve TR Pk Floyd: 2.39 TR Pk Grad: 23.00 RA Press: 3.00 RVSP: 26.00 Great Vessels Aorta Ao Asc: 4.00 2.1-3.4 cm Ao Arch: 3.30 Pulmonary Valve PV Pk Floyd: 1.29 Peak PV Grad: 7.00 Updated in Other Vendor System with Status of Final Juan Alberto Liz MD electronically signed on 03/09/2024 11:19:47 AM with status of Final
== END ==
LOC: HO.CARD 12:42
PROVIDERS: Visit Provider Internal Medicine Cardiovascular Disease
DX: Z95.2 Presence of prosthetic heart valve (principal)
CPT/HCPCS: 93306

== ENCOUNTER → 2024-03-08 12:49 | Outpatient (BNV) | payer MEDICARE, SELFPAY | PROVIDERS: Visit Provider Internal Medicine Cardiovascular Disease | DX: I42.2 Other hypertrophic cardiomyopathy (principal); I34.0 Nonrheumatic mitral (valve) insufficiency; I36.1 Nonrheumatic tricuspid (valve) insufficiency; Z95.3 Presence of xenogenic heart valve | CPT/HCPCS: 93306 ==

== ENCOUNTER 2024-04-30 09:25 | Outpatient (REF) | payer MEDICARE, SELFPAY ==
[2024-04-30 10:27] LABS: MANUAL DIFF FLAG NO
[2024-04-30 10:33] LABS: Basophils Percent Auto 0.5 % (0-2); Eosinophils Absolute Auto 0.4 X10*3/uL (0.0-0.4); Eosinophils Percent Auto 5.1 % (0-4); Hematocrit 42.5 % (42.0-52.0); Hemoglobin 14.1 g/dl (14.0-18.0); Imm Gran Abs Auto 0.03 X10*3/uL (0.00-0.03); Imm Gran Pct Auto 0.4 % (0.0-0.4); Lymphocytes Absolute Auto 1.8 X10*3/uL (1.2-4.9); Lymphocytes Percent Auto 23.6 % (20-40); Mean Corpuscular HGB Conc 33.2 g/dl (31.0-36.0); Mean Corpuscular Hemoglobin 31.3 pg (27.0-33.0); Mean Corpuscular Volume 94.4 fL (80.0-98.0); Mean Platelet Volume 10.5 fL (9.4-12.4); Monocytes Absolute Auto 0.8 X10*3/uL (0.1-1.2); Monocytes Percent Auto 10.6 % (2-11); Neutrophils Absolute Auto 4.5 x10*3/uL (2.0-8.3); Neutrophils Percent Auto 59.8 % (45-73); Platelet Count 152 X10*3/uL (160-400); Red Cell Distribution Width 13.5 % (11.0-16.0); White Blood Count 7.5 X10*3/uL (4.8-10.8)
[2024-04-30 10:53] LABS: Appearance Urine Clear; Color Urine Yellow; Glucose Urine UA Negative (Negative); Leukocyte Esterase Urine Negative (Negative); Nitrite Urine Negative (Negative); PH 6.5 (5.0-9.0); Urine Blood Negative (Negative); Urine Ketones Trace mg/dL (Negative); Urine Protein Trace mg/dL (Neg-Trace)
[2024-04-30 11:40] LABS: Folate 16.9 ng/mL (> or = 4.0); Vitamin B12 763 pg/mL (200-900)
[2024-04-30 12:11] LABS: Alanine Aminotransferase 38 U/L (0-40); Albumin Level 4.1 g/dL (3.5-5.0); Alkaline Phosphatase 78 U/L (39-117); Anion Gap 11 (12-20); Aspartate Amino Transferase 44 U/L (5-37); Bilirubin Total 0.6 mg/dL (0.0-1.0); Blood Urea Nitrogen 23 mg/dL (9-16); Calcium 9.4 mg/dL (8.4-10.2); Carbon Dioxide 25 mmol/L (22-29); Chloride 110 mmol/L (96-108); Cholesterol 118 mg/dL (<200); Estimated Glomerular Filt Rate > 60; Glucose Fasting 95 mg/dL (60-99); HDL Cholesterol 43 mg/dL (>40); LDL Cholesterol Calculated 55 mg/dL (<100); Potassium 3.8 mmol/L (3.3-5.1); Sodium 142 mmol/L (135-145); Total Protein 7.4 g/dL (6.5-8.0); Triglycerides 100 mg/dL (<150)
[2024-04-30 12:24] LABS: TSH reflex Free T4 4.43 uIU/mL (0.32-4.0); Vitamin D 25-OH Total 41.2 ng/mL (>30)
[2024-04-30 12:55] LABS: Free T4 (Free Thyroxine) 0.85 ng/dL (0.71-1.85)
== END 2024-04-30 09:26 | disposition home or self-care (01) ==
LOC: HO.10HDL 09:25
PROVIDERS: Visit Provider Internal Medicine
DX: D64.9 Anemia, unspecified (principal); E78.00 Pure hypercholesterolemia, unspecified; E53.8 Deficiency of other specified B group vitamins; R30.0 Dysuria; E55.9 Vitamin D deficiency, unspecified
CPT/HCPCS: 36415; 80053; 80061; 81003; 82306; 82607; 82746; 84439; 84443; 85025

== ENCOUNTER 2024-05-02 09:47 | Outpatient (AMB) | payer MEDICARE, SELFPAY ==
[2024-05-02 09:56] VITALS: BP 120/76; PULSE 77; O2SAT 98; BMI 25.0
--- NOTE | 2024-05-02 09:56 | MHC.PC.OV ---
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: No Accompanied by: Self / Same As Patient Allergies No Known Allergies Allergy (Verified 05/02/24 10:45) Medication List - Last Reconciled 05/02/24 by Ceferino Braxton MD amlodipine 2.5 mg PO DAILY 90 days amoxicillin 2,000 mg (4 x 500 mg) PO ONCE aspirin (Ecotrin Low Strength) 81 mg PO DAILY 90 days brimonidine 0.2% 1 drp ophthalmic (eye) bumetanide 1 mg orally 1 tablet in am and 1/2 tablet at noon time 90 days cholecalciferol (vitamin D3) 50 mcg PO BID ezetimibe (Zetia) 10 mg PO DAILY 90 days ibuprofen 800 mg PO TID metoprolol succinate ER (Toprol XL) 12.5 mg (1/2 x 25 mg) PO DAILY 90 days omeprazole 20 mg PO DAILY rosuvastatin 40 mg PO DAILY terazosin 5 mg PO DAILY Tobacco use date assessed: 05/02/24 Fall risk assessment: No Falls in past year Last assessed Fall Risk: 05/02/24 Dental Screening Dental Screen Date: 05/02/24 Did you have a dental visit in the last 12 months?: Yes Did you have a dental problem in the last 6 months where you did not have access to dental care?: No Was dental information given to patient?: Patient has dentist HPI HTN, hyperlipidemia, GERD HPI Details Patient comes in today for his follow-up visit for his hyperlipidemia, hypertension, lumbar DDD and GERD States that he feels okay except for recurrent nasal congestion and on and off drainage lately He denies any fever or sore throat and denies any recent cough He denies any headaches or dizziness Denies any chest pains, no increased shortness of breath No nausea/vomiting, no abdominal pain No change in bowel habits noted Still has chronic low back pain but states that he has been able to manage his low back pain so far for the most part Needs his Omeprazole Rx refilled He had his follow-up labs done a couple of days ago - to discuss his results ON LICENSE OF [facility] Medical History Severe aortic regurgitation Palpitations Dermatochalasis of both upper eyelids Vitamin D deficiency Dizziness Overweight (BMI 25.0-29.9) Insomnia Sensorineural hearing loss (SNHL) of both ears Osteoarthritis Allergic rhinitis GERD without esophagitis Benign prostatic hyperplasia Peripheral neuropathy Lumbar degenerative disc disease Bilateral lower extremity edema Coronary artery disease Benign essential hypertension Pure hypercholesterolemia Surgical History History of aortic valve replacement with bioprosthetic valve Status post transcatheter aortic valve replacement S/P CABG x 5 Family History Father CVD (cardiovascular disease) Mother Medical history unknown Social History Housing: House Alcohol intake: current Alcohol intake frequency: holidays/special occasions only Alcohol type: wine Patient Tobacco Use Status: Former Tobacco user e-Cigarette/Vaping Use: Never Used Second Hand Smoke Exposure: Yes service: Yes Current occupational status: retired Cognitive needs: No Hearing needs: No Vision needs: Yes Questionnaire PHQ-9 Over the last 2 weeks, how often have you been bothered by any of the following problems? 1. Little interest or pleasure in doing things: more than half the days 2. Feeling down, depressed, or hopeless: more than half the days 3. Trouble falling or staying asleep, or sleeping too much: more than half the days 4. Feeling tired or having little energy: more than half the days 5. Poor appetite or overeating: several days 6. Feeling bad about yourself - or that you are a failure or have let yourself or your family down: not at all 7. Trouble concentrating on things, such as reading the newspaper or watching television: not at all 8. Moving or speaking so slowly that other people could have noticed. Or the opposite - being so fidgety or restless that you have been moving around a lot more than usual: not at all 9. Thoughts that you would be better off or of hurting yourself in some way: not at all Total score: 9 Depression Screening Interpretation: Positive Depression Screening Follow-up: Existing condition and In treatment Depression Screening Done: Yes 66346 - PHQ-9 Billing: Yes Source: Developed by Drs. Patrick Osorio, Lashae Davila, Krishna Webster and colleagues, with an educational kacie from [employer]. Thrive Questionnaire Date Thrive assessed: 05/02/24 I am a: Patient What is your living situation today?: I have a steady place to live Within the past 12 months, did the food you bought not last and you didn't have the money to get more?: Never true Within the past 12 months, did you worry whether your food would run out before you got money to buy more?: Never true Do you have trouble paying for medicines?: No Do you have trouble getting transportation to medical appointments?: No Do you have trouble paying your heating and electricity bill?: No Do you have trouble taking care of your child, family member or friend?: No Do you have trouble with day-to-day activities such as bathing, preparing meals, shopping, managing finances, etc.?: No Are you currently unemployed and looking for a job?: No Are you interested in more education?: No Please select the resources that you would like help with: None Currently or been in a relationship where the following occur: No concerns reported THRIVE Score: 0 AUDIT C Alcohol Use Questionnaire (AUDIT-C) 1. How often do you have a drink containing alcohol?: Monthly or less 2. How many drinks containing alcohol do you have on a typical day when you are drinking?: 1 or 2 3. How often do you have six or more drinks on one occasion?: Never Total Score: 1 Score Reviewed/Action Taken: Yes CHAD-7 AMB Questionnaire CHAD-7 Date CHAD - 7 assessed: 05/02/24 Feeling nervous, anxious, or on edge: 0 = Not at all Not being able to stop or control worryin = Not at all Worrying too much about different things: 0 = Not at all Trouble relaxin = Not at all Being so restless that it is hard to sit still: 0 = Not at all Becoming easily annoyed or irritable: 0 = Not at all Feeling afraid as if something awful might happen: 0 = Not at all Total CHAD-7 score (0-4 normal; 5-9 mild; 10-14 moderate; 15-21 severe): 0 Source: Developed by Drs. Patrick Osorio, Lashae Davila, Krishna Webster and colleagues, with an educational kacie from [employer]. Review of Systems Const Denies chills, Reports fatigue, Denies fever(s) and Denies headache(s) ENT Denies dysphagia, Denies dizziness, Denies otalgia, Denies headache(s), Reports nasal congestion (on and off), Denies neck pain, Denies odynophagia and Denies sore throat Card Denies chest pain, Denies irregular heart rhythm (symptoms have improved with Metoprolol), Denies palpitations and Denies dyspnea Resp Denies chest congestion, Denies cough and Denies dyspnea GI Denies abdominal pain, Denies constipation, Denies dysphagia, Denies diarrhea, Denies nausea, Denies odynophagia and Denies vomiting Denies dysuria, Denies nocturia and Denies urinary frequency Musc Reports back pain (over the lower back - chronic) and Denies neck pain Skin/Breast Denies rash Neuro Denies dizziness and Denies headache(s) Psych Denies anxiety Endo Reports fatigue and Denies palpitations Physical exam (Primary Care) Vital Signs: Last Vital Signs Pulse 77 05/02/24 09:56 BP 120/76 05/02/24 09:56 Pulse Ox 98 05/02/24 09:56 Oxygen Delivery Method Room Air 05/02/24 09:56 BMI result Body Mass Index 25.0 Tobacco/Smoking Status: Tobacco use Status Tobacco use date assessed 05/02/24 05/02/24 10:02 Patient Tobacco Use Status Former Tobacco user 05/02/24 10:02 e-Cigarette/Vaping Use Never Used 05/02/24 10:02 PHQ-9: PHQ-9 Score PHQ-9: Total score 9 05/02/24 10:48 Depression Screening Interpretation: Positive Depression Screening Follow-up: Existing condition and In treatment Thrive Assessment: Date of Thrive Assessment Date Thrive assessed 05/02/24 05/02/24 10:02 Currently or been in a relationship where the following occur: No concerns reported Const General: no acute distress and alert HENMT Ears: TM's normal bilaterally and EAC's normal Throat: Yes posterior oropharynx normal and Yes tonsils normal (no TP congestion noted) Neck Neck: Yes supple and No lymphadenopathy Thyroid: Thyroid normal Resp Auscultation: clear to auscultation bilaterally, no rales and no wheezes Cardio Rate: regular rate Rhythm: regular rhythm Heart sounds: Murmur heart sound present systolic early and soft GI Palpation (GI): Soft to palpation and nontender Auscultation: normal bowel sounds General: Yes no CVA tenderness Back/Spine/Pelvis Back: no CVA tenderness Thoracic/Lumbar Spine: lumbar spinal tenderness Skin Rashes: no rashes Extrem General: Yes no clubbing, cyanosis or edema Results Reviewed Results Reviewed: Laboratory Tests 04/30/24 04/30/24 08:45 09:28 WBC 7.5 Hgb 14.1 Hct 42.5 Plt Count 152 L Sodium 142 Potassium 3.8 Creatinine 1.14 Estimated GFR > 60 Fasting Glucose 95 AST 44 H ALT 38 Triglycerides 100 Cholesterol 118 LDL Cholesterol, Calc 55 HDL Cholesterol 43 Vitamin B12 763 25-OH Vitamin D Total 41.2 TSH 4.43 H Free T4 0.85 Ur Specific [place] 1.020 Urine Protein Trace Urine Glucose (UA) Negative Urine Blood Negative Urine Nitrite Negative Ur Leukocyte Esterase Negative Coding Level of Care Code Est Pt Level 4 (05836) Complex EM visit Add On G2211 Diagnoses Coronary artery disease involving [place] coronary artery of [place] heart without angina pectoris I25.10 Associated angina: without angina Coronary Disease-Associated Artery/Lesion type: [place] artery [place] vs. transplanted heart: [place] heart Pure hypercholesterolemia E78.00 Benign essential hypertension I10 Palpitations R00.2 Severe aortic regurgitation I35.1 GERD without esophagitis K21.9 Allergic rhinitis, unspecified seasonality, unspecified trigger J30.9 Allergic rhinitis trigger: unspecified Allergic rhinitis seasonality: unspecified Degeneration of intervertebral disc of lumbar region with discogenic back pain M51.360 Disc-related pain type: discogenic back pain only Vitamin D deficiency E55.9 Insomnia, unspecified type G47.00 Insomnia type: unspecified Anxiety F41.9 Additional Codes PHQ-9 - 61361 - PHQ-9 Billing: Yes ([id number]) Assessment & Plan Assessment & Plan (1) Coronary artery disease: Comment: S/P CABG (5-vessel) in 2003 Code(s): I25.10 - Atherosclerotic heart disease of [place] coronary artery without angina pectoris Category: Medical Qualifiers: Associated angina: without angina Coronary Disease-Associated Artery/Lesion type: [place] artery [place] vs. transplanted heart: [place] heart Qualified Code(s): I25.10 - Atherosclerotic heart disease of [place] coronary artery without angina pectoris Plan: S/P CABG (5-vessel) in 2003 Coronary angiogram done on 12/02/2022 revealed 80% stenosis of the proximal LAD, LMCA and ostial diagonal, 70% stenosis of the proximal Cx and 99% stenosis of the ostial RCA Continue Aspirin 81 mg QD and aggressive risk factor modification Follow up with cardiology as scheduled (2) Pure hypercholesterolemia: Code(s): E78.00 - Pure hypercholesterolemia, unspecified Category: Medical Plan: Results of his labs done a couple of days ago reviewed and discussed with patient Reinforced low cholesterol diet Continue Rosuvastatin 40 mg QD and Ezetimibe 10 mg QD Will recheck his labs and fasting lipids in 4 months for follow up (3) Benign essential hypertension: Code(s): I10 - Essential (primary) hypertension Category: Medical Plan: Reinforced low sodium diet - goal is systolic BP of at least 140 to 150 mm or less Continue Amlodipine 2.5 mg QD; he is also on Metoprolol ER 25 mg 1/2 tablet QD but this was more for his palpitations He was also on Lisinopril 2.5 mg before but he stopped taking it after he developed recurrent dizziness while on the Rx (4) Palpitations: Code(s): R00.2 - Palpitations Category: Medical Plan: 3 day Holter monitor done last year revealed (+) frequent supraventricular ectopy with very brief run and frequent ventricular ectopy with a burden of 1.1%. Couplets noted, some triplets, bigeminy, trigeminy. Longest run was 3 beats, with no pauses or high-grade heart blocks Patient was started on Metoprolol ER 25 mg 1/2 tablet QD by cardiology and he states that his symptoms seem to have improved a lot since - to continue Metoprolol ER 25 mg 1/2 tablet QD Follow up with cardiology as scheduled (5) Severe aortic regurgitation: Comment: S/P TAVR in 12/2022 Code(s): I35.1 - Nonrheumatic aortic (valve) insufficiency Category: Medical Plan: S/P TAVR at [facility] in December 2022 with complete resolution of all of his previous cardiac symptoms since his valve replacement surgery Repeat echocardiogram done last year revealed a normal left ventricular systolic function, with the visually estimated ejection fraction between 55-60%The mid anteroseptal segment is hypokinetic and a bioprosthetic aortic valve is present - the prosthetic aortic valve appears to be functioning normally Follow up with cardiology as scheduled (6) GERD without esophagitis: Code(s): K21.9 - Gastro-esophageal reflux disease without esophagitis Category: Medical Plan: Dietary restrictions reinforced Continue Omeprazole 20 mg QD - Rx refilled (7) Allergic rhinitis: Code(s): J30.9 - Allergic rhinitis, unspecified Category: Medical Qualifiers: Allergic rhinitis trigger: unspecified Allergic rhinitis seasonality: unspecified Qualified Code(s): J30.9 - Allergic rhinitis, unspecified Plan: Will again start patient on Fluticasone nasal spray 50 mcg QD PRN (8) Lumbar degenerative disc disease: Code(s): M51.36 - Other intervertebral disc degeneration, lumbar region Category: Medical Qualifiers: Disc-related pain type: discogenic back pain only Qualified Code(s): M51.360 - Other intervertebral disc degeneration, lumbar region with discogenic back pain only Plan: Reinforced activity and weight-lifting restrictions States that he is still able to put up with his low back pain, which he's had for years Repeat lumbar spine x-rays done in 2021 revealed (+) dextrocurvature of the lumbar spine centered at the L2 vertebral body and minimal grade 1 anterolisthesis of L4 on L5 that are unchanged from previous. There are also multilevel degenerative disc disease and bilateral facet arthropathy that have slightly progressed compared to the prior examination He has been to physical therapy in the past with only partial improvement of his low back pain; states that he continues to do the back exercises and stretching that he was taught by physical therapy previously on a regular basis help manage his back pain Patient has been advised that if his back pain persist or continues to get worse, we can consider referring him back to physical therapy or send him for an MRI of the lumbar spine for further evaluation (9) Vitamin D deficiency: Code(s): E55.9 - Vitamin D deficiency, unspecified Category: Medical Plan: Continue OTC Vitamin D supplements BID (10) Insomnia: Code(s): G47.00 - Insomnia, unspecified Category: Medical Qualifiers: Insomnia type: unspecified Qualified Code(s): G47.00 - Insomnia, unspecified Plan: Sleep hygiene reinforced Continue Zolpidem 10 mg Q HS PRN (11) Anxiety: Code(s): F41.9 - Anxiety disorder, unspecified Category: Medical Plan: Continue Sertraline 25 mg QD Plan Follow up in 4 months Orders: Orders Free T4 (Free Thyroxine) 4 Months R79.89 - Other specified abnormal findings of blood chemistry Comprehensive [place]. Panel Fast 4 Months E78.00 - Pure hypercholesterolemia, unspecified Lipid Panel 4 Months E78.00 - Pure hypercholesterolemia, unspecified UA CC w/rflx Micro + Cult 4 Months R30.0 - Dysuria Vitamin D 25-OH Total 4 Months E55.9 - Vitamin D deficiency, unspecified Vitamin B12 and Folate 4 Months E53.8 - Deficiency of other specified B group vitamins Thyroid Stimulating Hormone 4 Months R79.89 - Other specified abnormal findings of blood chemistry Complete Blood Count Auto Diff 4 Months D64.9 - Anemia, unspecified Medications: New fluticasone propionate 50 mcg/actuation administer into each nostril 2 sprays intranasal DAILY PRN 16 grams 5RF allergy symptoms 30 days Changed From omeprazole 20 mg PO DAILY 90 caps 3RF To omeprazole 20 mg PO DAILY 90 caps 3RF 90 days
== END 2024-05-02 11:03 | disposition home or self-care (01) ==
LOC: HO.HMCH 09:47
PROVIDERS: PCP Internal Medicine; Visit Provider Internal Medicine
DX: I25.10 Atherosclerotic heart disease of native coronary artery without angina pectoris (principal); E78.00 Pure hypercholesterolemia, unspecified; I10 Essential (primary) hypertension; R00.2 Palpitations; I35.1 Nonrheumatic aortic (valve) insufficiency; K21.9 Gastro-esophageal reflux disease without esophagitis; J30.9 Allergic rhinitis, unspecified; M51.360 Other intervertebral disc degeneration, lumbar region with discogenic back pain only; E55.9 Vitamin D deficiency, unspecified; G47.00 Insomnia, unspecified; F41.9 Anxiety disorder, unspecified

== ENCOUNTER → 2024-05-02 09:47 | Outpatient (BNVA) | payer MEDICARE, SELFPAY | PROVIDERS: PCP Internal Medicine; Visit Provider Internal Medicine | DX: I25.10 Atherosclerotic heart disease of native coronary artery without angina pectoris (principal); E78.00 Pure hypercholesterolemia, unspecified; I10 Essential (primary) hypertension; R00.2 Palpitations; I35.1 Nonrheumatic aortic (valve) insufficiency; K21.9 Gastro-esophageal reflux disease without esophagitis; J30.9 Allergic rhinitis, unspecified; M51.360 Other intervertebral disc degeneration, lumbar region with discogenic back pain only; E55.9 Vitamin D deficiency, unspecified; G47.00 Insomnia, unspecified; F41.9 Anxiety disorder, unspecified | CPT/HCPCS: 96127; 99212 ==

== ENCOUNTER 2024-09-04 10:11 | Outpatient (REF) | payer MEDICARE, SELFPAY ==
--- OUTSIDE RECORDS SUMMARY | 2024-09-04 11:14 | XMS_ITS | Patient Health Record ---
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 Name Role Phone Fox HERRING, Ephraim Primary Care Provider Shaggy Cherry Unavailable [phone] Allergies No Known Allergies Reason For Referral No Information Medications Medication SIG (Take, Route, Frequency, Duration) Notes Start Date End Date Status Rosuvastatin Calcium 40 MG 1 tablet Oral ly Once a day; Duration: 30 day(s) Active Terazosin HCl 5 MG 1 capsule at bedtime Orally Once a day; Duration: 30 day(s) Active Omeprazole 20 MG 1 capsule 30 minutes before morning meal Orally Once a day; Duration: 30 day(s) Active Ezetimibe 10 MG TAKE 1 TABLET BY AMBAR TH DAILY Oral; Duration: 90 Active ibuprofen Active Amoxicillin 500 MG TAKE 4 CAPSULES ONE HOUR PRIOR TO DENTAL WORK Oral; Duration: 1 Active Aspir-81 Active Bumetanide 1 MG TAKE 1 TABLET BY AMBAR TH IN MORNING AND 1/2 TABLET AT NOON TIME Oral; Duration: 90 Active Immunizations Vaccine Route Administration Date Status Comme nts Influenza Unknown 11/15/2023 Administered Social History Tobacco Use: Social History Observation Description Date Details (start date - stop date) Never Smoker NA - NA Tobacco use other than smoking: Question Answer Notes Are you an other tobacco user? No Tobacco Control (Standard) Question Answer Notes Tobacco use: Nonsmoker AUDIT-C (Standard) Question Answer Notes Did you have a drink containing alcohol in the p ast year? No Points 0 Interpretation Negative Problems Problem Type SNOMED Code ICD Code Onset Dates Problem Status W/U Status Risk Notes Problem Bilateral atherosclerosis of arteries of lower limbs (disorder) ([id number] ) Atherosclerosis of [place] artery of both lower extremities, with unspecified presence of clinical manifestation (I70.203) Active confirmed Vital Signs Blood pressure diastolic 68 mm Hg 09/04/2024 Height 6ft in 09/04/2024 Blood pressure systolic 126 mm Hg 09/04/2024 Weight 175 lbs 09/04/2024 BMI 23.73 kg/m2 09/04/2024 Procedures Procedure Date Ordered Date Performed Result Body Sit e 29577-UZLQIAE NAIL, 1-5 10/07/2023 N/A 57197-VGSQ SKIN LESIONS, 2 TO 4 10/07/2023 N/A J0433-BCMNEYJP DYSTROPHIC NAILS ANY # 10/07/2023 N/A 90099-YPKIYRE NAIL, 1-5 01/06/2024 N/A 35414-JTZE SKIN LESIONS, 2 TO 4 01/06/2024 N/A K2667-LDSYHLPQ DYSTROPHIC NAILS ANY # 01/06/2024 N/A 97515-OYQFPNH NAIL, 1-5 05/04/2024 N/A 91336-KLQO SKIN LESIONS, 2 TO 4 05/04/2024 N/A Z5602-KCOIBTCC DYSTROPHIC NAILS ANY # 05/04/2024 N/A 70329-QOPCWCR NAIL, 1-5 09/04/2024 N/A 42424-WZXA SKIN LESIONS, 2 TO 4 09/04/2024 N/A O2265-NSXVBEPC DYSTROPHIC NAILS ANY # 09/04/2024 N/A Encounters Encounter [facility] Date [facility] [address] 10/07/2023 Shaggy Styles Atherosclerosis of [place] artery of both lower extremities, with unspecified presence of clinical manifestation I70.203 ; Tinea unguium B35.1 ; Pain in right toe(s) M79.674 and Pain in left toe(s) M79.[address] [facility] [address] 01/06/2024 Shaggy Styles Atherosclerosis of [place] artery of both lower extremities, with unspecified presence of clinical manifestation I70.203 ; Tinea unguium B35.1 ; Pain in right toe(s) M79.674 and Pain in left toe(s) M79.[address] [address] 05/04/2024 Shaggy Styles Atherosclerosis of [place] artery of both lower extremities, with unspecified presence of clinical manifestation I70.203 ; Tinea unguium B35.1 ; Pain in right toe(s) M79.674 and Pain in left toe(s) M79.[address] [address] 09/04/2024 Shaggy Styles Atherosclerosis of [place] artery of both lower extremities, with unspecified presence of clinical manifestation I70.203 ; Tinea unguium B35.1 ; Pain in right toe(s) M79.674 and Pain in left toe(s) M79.675 Assessments Encounter Date Diagnosis (ICD Code) Assessment Notes Treatment Notes Treatment Clinical Notes Section Notes 10/07/2023 Tinea unguium (ICD-10 - B35.1) 10/07/2023 Atherosclerosis of [place] artery of both lower extremities, with unspecified presence of clinical manifestation (ICD-10 - I70.203) 01/06/2024 Tinea unguium (ICD-10 - B35.1) 01/06/2024 Atherosclerosis of [place] artery of both lower extremities, with unspecified presence of clinical manifestation (ICD-10 - I70.203) 05/04/2024 Tinea unguium (ICD-10 - B35.1) 05/04/2024 Atherosclerosis of [place] artery of both lower extremities, with unspecified presence of clinical manifestation (ICD-10 - I70.203) 09/04/2024 Tinea unguium (ICD-10 - B35.1) 09/04/2024 Atherosclerosis of [place] artery of both lower extremities, with unspecified presence of clinical manifestation (ICD-10 - I70.203) 05/04/2024 Pain in right toe(s) (ICD-10 - M79.674) 09/04/2024 Pain in right toe(s) (ICD-10 - M79.674) 10/07/2023 Pain in right toe(s) (ICD-10 - M79.674) 01/06/2024 Pain in right toe(s) (ICD-10 - M79.674) 10/07/2023 Pain in left toe(s) (ICD-10 - M79.675) 01/06/2024 Pain in left toe(s) (ICD-10 - M79.675) 09/04/2024 Pain in left toe(s) (ICD-10 - M79.675) 05/04/2024 Pain in left toe(s) (ICD-10 - M79.675) Plan Of Treatment Pending Test Test Name Order Date 14057-ZBVTACQ NAIL, 1-09/14/2022 83284-RLKPMZL NAIL, -12/21/2022 75428-YIKFVPX NAIL, -03/22/2023 76956-BLUGDQC NAIL, -06/24/2023 21991-VUUMBKW NAIL, -10/07/2023 76751-HVWJKTH NAIL, -01/06/2024 73270-XMXBSPM NAIL, -05/04/2024 68862-LLWZPWQ NAIL, -09/04/2024 83270-Pnckwxfg Plate 09/14/2022 85939-PWBT SKIN LESIONS, 2 TO 4 09/15/19 23 12774-DXDA SKIN LESIONS, 2 TO 4 03/22/19 24 81071-BWCK SKIN LESIONS, 2 TO 4 05/05/19 25 84384-JNNT SKIN LESIONS, 2 TO 4 01/06/20 24 70578-KGDJ SKIN LESIONS, 2 TO 4 10/07/19 24 75512-MTLW SKIN LESIONS, 2 TO 4 06/24/19 24 05450-IHNG SKIN LESIONS, 2 TO 4 09/05/19 25 24499-VFHL SKIN LESIONS, 2 TO 4 12/22/19 23 L1678-DKOUPNNK DYSTROPHIC NAILS ANY # L5240-MYSUJOIX DYSTROPHIC NAILS ANY # Q3027-PQIIJXQX DYSTROPHIC NAILS ANY # I8212-COSBDTQW DYSTROPHIC NAILS ANY # U1149-MTQPPVOL DYSTROPHIC NAILS ANY # F5668-OPSIWMFN DYSTROPHIC NAILS ANY # O1740-KYILGYFQ DYSTROPHIC NAILS ANY # O0798-JJOKVDXE DYSTROPHIC NAILS ANY # Next Appt Details Provider Name:Shaggy Styles , 01/01/2025 09:00:00 AM, [address] [place], [address], Insurance Providers Payer Name Payer Address Payer Phone Subscriber Number Group Number Insured Name Patient Relationship to Insured Coverage Start Date Coverage End Date [address] [place] [address] [id number] Patrick Magdaleno Self - patient is the insured Medical (General) History Medical History History ICD Code Back,Hip,and Knee pain Depression Heart disease Macular degeneration Chicken pox Vascular grafts Replacement Heart Valves Hypertension, benign edema Heath Reflux ( GERD) Insomnia osteoarthritis Neuropathy Vitamin D deficiency Hypercholesterolemia Lumbar disc disease dizziness Surgical History Surgery Date(Month/Year) aortic valve replacement 2022
[2024-09-04 13:14] LABS: MANUAL DIFF FLAG NO
[2024-09-04 13:30] LABS: Appearance Urine Clear; Glucose Urine UA Negative (Negative); PH 6.5 (5.0-9.0); Specific Gravity - Urine 1.015 (1.005-1.025)
[2024-09-04 13:59] LABS: Hematocrit 41.0 % (42.0-52.0); Hemoglobin 13.8 g/dl (14.0-18.0); Imm Gran Abs Auto 0.01 X10*3/uL (0.00-0.03); Imm Gran Pct Auto 0.1 % (0.0-0.4); Lymphocytes Absolute Auto 1.5 X10*3/uL (1.2-4.9); Mean Corpuscular HGB Conc 33.7 g/dl (31.0-36.0); Mean Corpuscular Hemoglobin 31.6 pg (27.0-33.0); Mean Corpuscular Volume 93.8 fL (80.0-98.0); NRBC Abs Auto 0.000 X10*3/uL (0.0-0.012); NRBC Pct Auto 0.0 /100WBC (0.0-0.2); Platelet Count 145 X10*3/uL (160-400); Red Blood Count 4.37 X10*6/uL (4.60-5.80); White Blood Count 6.7 X10*3/uL (4.8-10.8)
[2024-09-04 14:34] LABS: Folate > 20.0 ng/mL (> or = 4.0); Vitamin B12 633 pg/mL (200-900)
[2024-09-04 15:04] LABS: Alanine Aminotransferase 39 U/L (0-40); Albumin Level 4.2 g/dL (3.5-5.0); Alkaline Phosphatase 75 U/L (39-117); Anion Gap 14 (12-20); Aspartate Amino Transferase 41 U/L (5-37); Blood Urea Nitrogen 24 mg/dL (9-16); Calcium 9.2 mg/dL (8.4-10.2); Carbon Dioxide 24 mmol/L (22-29); Chloride 109 mmol/L (96-108); Cholesterol 113 mg/dL (<200); Estimated Glomerular Filt Rate 54; HDL Cholesterol 41 mg/dL (>40); Potassium 3.7 mmol/L (3.3-5.1); Sodium 143 mmol/L (135-145); Total Protein 6.7 g/dL (6.5-8.0); Triglycerides 89 mg/dL (<150)
[2024-09-04 15:09] LABS: Free T4 (Free Thyroxine) 0.84 ng/dL (0.71-1.85); Thyroid Stimulating Hormone 4.27 uIU/mL (0.32-4.0)
== END 2024-09-04 10:12 | disposition home or self-care (01) ==
LOC: HO.10HDL 10:11
PROVIDERS: Visit Provider Internal Medicine
DX: E53.8 Deficiency of other specified B group vitamins (principal); R79.89 Other specified abnormal findings of blood chemistry; E78.00 Pure hypercholesterolemia, unspecified; D64.9 Anemia, unspecified; E55.9 Vitamin D deficiency, unspecified; R30.0 Dysuria
CPT/HCPCS: 36415; 80053; 80061; 81003; 82306; 82607; 82746; 84439; 84443; 85025

== ENCOUNTER 2024-09-06 09:37 | Outpatient (AMB) | payer MEDICARE, SELFPAY ==
[2024-09-06 09:42] VITALS: BP 110/80; PULSE 67; O2SAT 97; BMI 24.6
--- NOTE | 2024-09-06 09:42 | A.OFFPC_ITS ---
Vital Signs 09/06/24 09:42 Height 6 ft Weight 181 lb 8 oz BMI 24.6 BP 110/80 Blood Pressure Location Lt brachial Position Sitting Pulse 67 Pulse Source Pulse Oximeter Pulse Oximetry (%) 97 Oxygen Delivery Method Room Air Intake Visit Reasons: [facility] Allergies No Known Allergies Allergy (Verified 09/06/24 10:13) Medication List - Last Reconciled 09/06/24 by Ceferino Braxton MD amlodipine 2.5 mg PO DAILY 90 days amoxicillin 2,000 mg (4 x 500 mg) PO ONCE aspirin (Ecotrin Low Strength) 81 mg PO DAILY 90 days brimonidine 0.2% 1 drp ophthalmic (eye) bumetanide 1 mg orally 1 tablet in am and 1/2 tablet at noon time 90 days cholecalciferol (vitamin D3) 50 mcg PO BID ezetimibe (Zetia) 10 mg PO DAILY 90 days fluticasone propionate 50 mcg/actuation 2 sprays intranasal DAILY PRN 30 days ibuprofen 800 mg PO TID metoprolol succinate ER (Toprol XL) 12.5 mg (1/2 x 25 mg) PO DAILY 90 days omeprazole 20 mg PO DAILY 90 days rosuvastatin 40 mg PO DAILY terazosin 5 mg PO DAILY Tobacco use date assessed: 05/02/24 Fall risk assessment: No Falls in past year Last assessed Fall Risk: 09/06/24 Dental Screening Dental Screen Date: 09/06/24 Did you have a dental visit in the last 12 months?: Yes Did you have a dental problem in the last 6 months where you did not have access to dental care?: No Was dental information given to patient?: Patient has dentist [facility] HPI Details Patient comes in today for his follow-up visit for his hyperlipidemia, hypertension, lumbar DDD and GERD States that he feels okay He denies any headaches or dizziness Denies any chest pains, no increased shortness of breath No nausea/vomiting, no abdominal pain No change in bowel habits noted He still has chronic low back pain but states that he has been able to manage his low back pain so far He also continues to have trouble sleeping at night often - states that it often feels like his brain won't slow down enough for him to fall asleep He had his follow-up labs done a couple of days ago - to discuss his results [facility] Medical History Severe aortic regurgitation Palpitations Dermatochalasis of both upper eyelids Vitamin D deficiency Dizziness Overweight (BMI 25.0-29.9) Insomnia Sensorineural hearing loss (SNHL) of both ears Osteoarthritis Allergic rhinitis GERD without esophagitis Benign prostatic hyperplasia Peripheral neuropathy Lumbar degenerative disc disease Bilateral lower extremity edema Coronary artery disease Benign essential hypertension Pure hypercholesterolemia Surgical History History of aortic valve replacement with bioprosthetic valve Status post transcatheter aortic valve replacement S/P CABG x 5 Family History Father CVD (cardiovascular disease) Mother Medical history unknown Social History Housing: House Alcohol intake: current Alcohol intake frequency: holidays/special occasions only Alcohol type: wine Patient Tobacco Use Status: Former Tobacco user e-Cigarette/Vaping Use: Never Used Second Hand Smoke Exposure: Yes service: Yes Current occupational status: retired Cognitive needs: No Hearing needs: No Vision needs: Yes Questionnaire PHQ-9 Over the last 2 weeks, how often have you been bothered by any of the following problems? 1. Little interest or pleasure in doing things: more than half the days 2. Feeling down, depressed, or hopeless: more than half the days 3. Trouble falling or staying asleep, or sleeping too much: more than half the days 4. Feeling tired or having little energy: more than half the days 5. Poor appetite or overeating: several days 6. Feeling bad about yourself - or that you are a failure or have let yourself or your family down: not at all 7. Trouble concentrating on things, such as reading the newspaper or watching television: not at all 8. Moving or speaking so slowly that other people could have noticed. Or the opposite - being so fidgety or restless that you have been moving around a lot more than usual: not at all 9. Thoughts that you would be better off or of hurting yourself in some way: not at all Total score: 9 Depression Screening Interpretation: Positive Depression Screening Follow-up: Existing condition and In treatment Depression Screening Done: Yes 22504 - PHQ-9 Billing: Yes Source: Developed by Drs. Patrick Osorio, Lashae Davila, Krishna Webster and colleagues, with an educational kacie from [employer]. Thrive Questionnaire Date Thrive assessed: 09/06/24 I am a: Patient What is your living situation today?: I have a steady place to live Within the past 12 months, did the food you bought not last and you didn't have the money to get more?: Never true Within the past 12 months, did you worry whether your food would run out before you got money to buy more?: Never true Do you have trouble paying for medicines?: No Do you have trouble getting transportation to medical appointments?: No Do you have trouble paying your heating and electricity bill?: No Do you have trouble taking care of your child, family member or friend?: No Do you have trouble with day-to-day activities such as bathing, preparing meals, shopping, managing finances, etc.?: No Are you currently unemployed and looking for a job?: No Are you interested in more education?: No Please select the resources that you would like help with: None Currently or been in a relationship where the following occur: No concerns reported THRIVE Score: 0 AUDIT C Alcohol Use Questionnaire (AUDIT-C) 1. How often do you have a drink containing alcohol?: Monthly or less 2. How many drinks containing alcohol do you have on a typical day when you are drinking?: 1 or 2 3. How often do you have six or more drinks on one occasion?: Never Total Score: 1 Score Reviewed/Action Taken: Yes CHAD-7 AMB Questionnaire CHAD-7 Date CHAD - 7 assessed: 09/06/24 Feeling nervous, anxious, or on edge: 0 = Not at all Not being able to stop or control worryin = Not at all Worrying too much about different things: 0 = Not at all Trouble relaxin = Not at all Being so restless that it is hard to sit still: 0 = Not at all Becoming easily annoyed or irritable: 0 = Not at all Feeling afraid as if something awful might happen: 0 = Not at all Total CHAD-7 score (0-4 normal; 5-9 mild; 10-14 moderate; 15-21 severe): 0 Source: Developed by Drs. Patrick Osorio, Lashae Davila, Krishna Webster and colleagues, with an educational kacie from [employer]. Review of Systems Const Denies chills, Reports difficulty sleeping, Reports fatigue, Denies fever(s) and Denies headache(s) ENT Denies dysphagia, Denies dizziness, Denies otalgia, Denies headache(s), Denies neck pain, Denies odynophagia and Denies sore throat Card Denies chest pain, Denies irregular heart rhythm (symptoms have improved with Metoprolol), Denies palpitations and Denies dyspnea Resp Denies chest congestion, Denies cough and Denies dyspnea GI Denies abdominal pain, Denies constipation, Denies dysphagia, Denies diarrhea, Denies nausea, Denies odynophagia and Denies vomiting Denies difficulty urinating, Denies dysuria, Denies nocturia and Denies urinary frequency Musc Reports back pain (over the lower back - chronic) and Denies neck pain Skin/Breast Denies rash Neuro Denies dizziness and Denies headache(s) Psych Denies anxiety Endo Reports fatigue and Denies palpitations Physical exam (Primary Care) Vital Signs: Last Vital Signs Pulse 67 09/06/24 09:42 BP 110/80 09/06/24 09:42 Pulse Ox 97 09/06/24 09:42 Oxygen Delivery Method Room Air 09/06/24 09:42 BMI result Body Mass Index 24.6 Tobacco/Smoking Status: Tobacco use Status Tobacco use date assessed 05/02/24 09/06/24 09:44 Patient Tobacco Use Status Former Tobacco user 09/06/24 09:44 e-Cigarette/Vaping Use Never Used 09/06/24 09:44 PHQ-9: PHQ-9 Score PHQ-9: Total score 9 09/06/24 19:28 Depression Screening Interpretation: Positive Depression Screening Follow-up: Existing condition and In treatment Thrive Assessment: Date of Thrive Assessment Date Thrive assessed 09/06/24 09/06/24 09:44 Currently or been in a relationship where the following occur: No concerns reported Const General: no acute distress and alert HENMT Ears: TM's normal bilaterally and EAC's normal Throat: Yes posterior oropharynx normal and Yes tonsils normal (no TP congestion noted) Neck Neck: Yes supple and No lymphadenopathy Thyroid: Thyroid normal Resp Auscultation: clear to auscultation bilaterally, no rales and no wheezes Cardio Rate: regular rate Rhythm: regular rhythm Heart sounds: Murmur heart sound present systolic early and soft GI Palpation (GI): Soft to palpation and nontender Auscultation: normal bowel sounds General: Yes no CVA tenderness Back/Spine/Pelvis Back: no CVA tenderness Thoracic/Lumbar Spine: lumbar spinal tenderness Skin Rashes: no rashes Extrem General: Yes no clubbing, cyanosis or edema Results Reviewed Results Reviewed: Laboratory Tests 09/04/24 10:15 WBC 6.7 Hgb 13.8 L Hct 41.0 L Plt Count 145 L Sodium 143 Potassium 3.7 Creatinine 1.26 Estimated GFR 54 Fasting Glucose 95 Calcium 9.2 AST 41 H ALT 39 Triglycerides 89 Cholesterol 113 LDL Cholesterol, Calc 55 HDL Cholesterol 41 Vitamin B12 633 25-OH Vitamin D Total 43.1 TSH 4.27 H Free T4 0.84 Ur Specific [place] 1.015 Urine Protein Negative Urine Glucose (UA) Negative Urine Blood Negative Urine Nitrite Negative Ur Leukocyte Esterase Negative Coding Level of Care Code Est Pt Level 4 (22270) Diagnoses Coronary artery disease involving [place] coronary artery of [place] heart without angina pectoris I25.10 Associated angina: without angina Coronary Disease-Associated Artery/Lesion type: [place] artery [place] vs. transplanted heart: [place] heart Pure hypercholesterolemia E78.00 Benign essential hypertension I10 Palpitations R00.2 Severe aortic regurgitation I35.1 GERD without esophagitis K21.9 Allergic rhinitis, unspecified seasonality, unspecified trigger J30.9 Allergic rhinitis seasonality: unspecified Allergic rhinitis trigger: unspecified Degeneration of intervertebral disc of lumbar region with discogenic back pain M51.360 Disc-related pain type: discogenic back pain only Vitamin D deficiency E55.9 Insomnia, unspecified type G47.00 Insomnia type: unspecified Anxiety F41.9 Additional Codes PHQ-9 - 40433 - PHQ-9 Billing: Yes ([id number]) Assessment & Plan Assessment & Plan (1) Coronary artery disease: Comment: S/P CABG (5-vessel) in 2003 Code(s): I25.10 - Atherosclerotic heart disease of [place] coronary artery without angina pectoris Category: Medical Qualifiers: Associated angina: without angina Coronary Disease-Associated Artery/Lesion type: [place] artery [place] vs. transplanted heart: [place] heart Qualified Code(s): I25.10 - Atherosclerotic heart disease of [place] coronary artery without angina pectoris Plan: S/P CABG (5-vessel) in 2003 Coronary angiogram done on 12/02/2022 revealed 80% stenosis of the proximal LAD, LMCA and ostial diagonal, 70% stenosis of the proximal Cx and 99% stenosis of the ostial RCA Continue Aspirin 81 mg QD and aggressive risk factor modification Follow up with cardiology as scheduled (2) Pure hypercholesterolemia: Code(s): E78.00 - Pure hypercholesterolemia, unspecified Category: Medical Plan: Results of his labs done a couple of days ago reviewed and discussed with ruth siddiqi Reinforced low cholesterol diet Continue Rosuvastatin 40 mg QD and Ezetimibe 10 mg QD Will recheck his labs and fasting lipids in 4 months for follow up (3) Benign essential hypertension: Code(s): I10 - Essential (primary) hypertension Category: Medical Plan: Reinforced low sodium diet - goal is systolic BP of at least 140 to 150 mm or less Continue Amlodipine 2.5 mg QD; he is also on Metoprolol ER 25 mg 1/2 tablet QD but this was more for his palpitations He was also on Lisinopril 2.5 mg before but he stopped taking it after he developed recurrent dizziness while on the Rx (4) Palpitations: Code(s): R00.2 - Palpitations Category: Medical Plan: 3 day Holter monitor done last year revealed (+) frequent supraventricular ectopy with very brief run and frequent ventricular ectopy with a burden of 1.1%. Couplets noted, some triplets, bigeminy, trigeminy. Longest run was 3 beats, with no pauses or high-grade heart blocks Patient was started on Metoprolol ER 25 mg 1/2 tablet QD by cardiology and he states that his symptoms seem to have improved a lot since - to continue Metoprolol ER 25 mg 1/2 tablet QD Follow up with cardiology as scheduled (5) Severe aortic regurgitation: Comment: S/P TAVR in 12/2022 Code(s): I35.1 - Nonrheumatic aortic (valve) insufficiency Category: Medical Plan: S/P TAVR at [facility] in December 2022 with complete resolution of all of his previous cardiac symptoms since his valve replacement surgery Repeat echocardiogram done last year revealed a normal left ventricular systolic function, with the visually estimated ejection fraction between 55-60%The mid anteroseptal segment is hypokinetic and a bioprosthetic aortic valve is present - the prosthetic aortic valve appears to be functioning normally Follow up with cardiology as scheduled (6) GERD without esophagitis: Code(s): K21.9 - Gastro-esophageal reflux disease without esophagitis Category: Medical Plan: Dietary restrictions reinforced Continue Omeprazole 20 mg QD (7) Allergic rhinitis: Code(s): J30.9 - Allergic rhinitis, unspecified Category: Medical Qualifiers: Allergic rhinitis seasonality: unspecified Allergic rhinitis trigger: unspecified Qualified Code(s): J30.9 - Allergic rhinitis, unspecified Plan: Continue Fluticasone nasal spray 50 mcg QD PRN (8) Lumbar degenerative disc disease: Code(s): M51.36 - Other intervertebral disc degeneration, lumbar region Category: Medical Qualifiers: Disc-related pain type: discogenic back pain only Qualified Code(s): M51.360 - Other intervertebral disc degeneration, lumbar region with discogenic back pain only Plan: Reinforced activity and weight-lifting restrictions States that he is still able to put up with his low back pain, which he's had for years Repeat lumbar spine x-rays done in 2021 revealed (+) dextrocurvature of the lumbar spine centered at the L2 vertebral body and minimal grade 1 anterolisthesis of L4 on L5 that are unchanged from previous. There are also multilevel degenerative disc disease and bilateral facet arthropathy that have slightly progressed compared to the prior examination He has been to physical therapy in the past with only partial improvement of his low back pain; states that he continues to do the back exercises and stretching that he was taught by physical therapy previously on a regular basis help manage his back pain Patient has been advised that if his back pain persist or continues to get worse, we can consider referring him back to physical therapy or send him for an MRI of the lumbar spine for further evaluation (9) Vitamin D deficiency: Code(s): E55.9 - Vitamin D deficiency, unspecified Category: Medical Plan: Continue OTC Vitamin D supplements BID (10) Insomnia: Code(s): G47.00 - Insomnia, unspecified Category: Medical Qualifiers: Insomnia type: unspecified Qualified Code(s): G47.00 - Insomnia, unspecified Plan: Sleep hygiene reinforced Continue Zolpidem 10 mg Q HS PRN Will start him additionally on Doxepin 10 mg Q HS PRN (11) Anxiety: Code(s): F41.9 - Anxiety disorder, unspecified Category: Medical Plan: Continue Sertraline 25 mg QD Plan Follow up in 4 months Orders: Orders Lipid Panel 4 Months E78.00 - Pure hypercholesterolemia, unspecified Free T4 (Free Thyroxine) 4 Months R79.89 - Other specified abnormal findings of blood chemistry Complete Blood Count Auto Diff 4 Months D64.9 - Anemia, unspecified Comprehensive [place]. Panel Fast 4 Months E78.00 - Pure hypercholesterolemia, unspecified Thyroid Stimulating Hormone 4 Months R79.89 - Other specified abnormal findings of blood chemistry Medications: New doxepin 10 mg PO BEDTIME PRN 30 caps 0RF anxiety 30 days
--- OUTSIDE RECORDS SUMMARY | 2024-09-06 10:16 | XMS_ITS | Patient Health Record ---
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, with unspecified presence of clinical manifestation (I70.203) Active confirmed Vital Signs Blood pressure diastolic 68 mm Hg 09/04/2024 Height 6ft in 09/04/2024 Blood pressure systolic 126 mm Hg 09/04/2024 Weight 175 lbs 09/04/2024 BMI 23.73 kg/m2 09/04/2024 Procedures Procedure Date Ordered Date Performed Result Body Sit e 36763-BQKBBQX NAIL, 1-5 10/07/2023 N/A 89385-NOXA SKIN LESIONS, 2 TO 4 10/07/2023 N/A H9530-SCXQGXVI DYSTROPHIC NAILS ANY # 10/07/2023 N/A 55718-FBYPBSV NAIL, 1-5 01/06/2024 N/A 97785-XFUA SKIN LESIONS, 2 TO 4 01/06/2024 N/A N6400-ZEOKNMSP DYSTROPHIC NAILS ANY # 01/06/2024 N/A 21934-RWBIQFM NAIL, 1-5 05/04/2024 N/A 35757-YNYS SKIN LESIONS, 2 TO 4 05/04/2024 N/A D1582-LZOMTWXW DYSTROPHIC NAILS ANY # 05/04/2024 N/A 56787-DNVIIOH NAIL, 1-5 09/04/2024 N/A 56761-FRCR SKIN LESIONS, 2 TO 4 09/04/2024 N/A Y7948-VSWIXVHZ DYSTROPHIC NAILS ANY # 09/04/2024 N/A Encounters Encounter [facility] Date [facility] [address] 10/07/2023 Shaggy Styles 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, with unspecified presence of clinical manifestation I70.203 ; Tinea unguium B35.1 ; Pain in right toe(s) M79.674 and Pain in left toe(s) M79.675 [facility] [address] 01/06/2024 Shaggy Styles 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, with unspecified presence of clinical manifestation I70.203 ; Tinea unguium B35.1 ; Pain in right toe(s) M79.674 and Pain in left toe(s) M79.[address] [address] 05/04/2024 Shaggy Styles 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, with unspecified presence of clinical manifestation I70.203 ; Tinea unguium B35.1 ; Pain in right toe(s) M79.674 and Pain in left toe(s) M79.[address] [address] 09/04/2024 Shaggy Styles 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, with unspecified presence of clinical manifestation I70.203 ; Tinea unguium B35.1 ; Pain in right toe(s) M79.674 and Pain in left toe(s) M79.675 Assessments Encounter Date Diagnosis (ICD Code) Assessment Notes Treatment Notes Treatment Clinical Notes Section Notes 10/07/2023 Tinea unguium (ICD-10 - B35.1) 10/07/2023 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, with unspecified presence of clinical manifestation (ICD-10 - I70.203) 01/06/2024 Tinea unguium (ICD-10 - B35.1) 01/06/2024 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, with unspecified presence of clinical manifestation (ICD-10 - I70.203) 05/04/2024 Tinea unguium (ICD-10 - B35.1) 05/04/2024 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, with unspecified presence of clinical manifestation (ICD-10 - I70.203) 09/04/2024 Tinea unguium (ICD-10 - B35.1) 09/04/2024 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, with unspecified [...] Treatment Pending Test Test Name Order Date 68278-OLAKGOP NAIL, 1-09/14/2022 26146-GIADNAX NAIL, -12/21/2022 91453-FZXDBUK NAIL, -03/22/2023 60320-TKNXDYO NAIL, -06/24/2023 59383-DNVNFCB NAIL, -10/07/2023 37423-RPCXSCU NAIL, -01/06/2024 74782-NQYYZSP NAIL, -05/04/2024 12518-RLCBSPC NAIL, -09/04/2024 83681-Girtkscw Plate 09/14/2022 93713-OXJP SKIN LESIONS, 2 TO 4 09/15/19 23 40819-YVVG SKIN LESIONS, 2 TO 4 03/22/19 24 13665-HDIA SKIN LESIONS, 2 TO 4 05/05/19 25 98379-YFTH SKIN LESIONS, 2 TO 4 01/06/20 24 98192-DLFB SKIN LESIONS, 2 TO 4 10/07/19 24 52719-EVQG SKIN LESIONS, 2 TO 4 06/24/19 24 47366-TQDR SKIN LESIONS, 2 TO 4 09/05/19 25 13037-BJKS SKIN LESIONS, 2 TO 4 12/22/19 23 R0887-RPPTTFLO DYSTROPHIC NAILS ANY # I7085-BTPWQYIC DYSTROPHIC NAILS ANY # I0007-IBJVLTKG DYSTROPHIC NAILS ANY # A4765-KXIYKJAH DYSTROPHIC NAILS ANY # V2289-BTOAOHCT DYSTROPHIC NAILS ANY # N3983-NTOTYJTG DYSTROPHIC NAILS ANY # V1080-KQIEORLM DYSTROPHIC NAILS ANY # N7641-DISMBFNW DYSTROPHIC NAILS ANY # Next Appt Details Provider Name:Shaggy Styles , 01/01/2025 09:00:00 AM, [address] [place], [address], Insurance Providers Payer Name Payer Address Payer Phone Subscriber Number Group Number Insured Name Patient Relationship to Insured Coverage Start Date Coverage End Date [employer] [address] [place] [address] [phone] [id number] Patrick Magdaleno Self - patient is the [...]
--- OUTSIDE RECORDS SUMMARY | 2024-09-06 10:16 | XMS_ITS | Patient Health Record ---
Author Organization [facility] Address [address] [place] [address] Care Team Providers Care Energy Economist Name Role Phone Patrick Pereyra Unavailable [phone] Reason For Referral No Information Plan Of Treatment No Information
== END 2024-09-06 10:32 | disposition home or self-care (01) ==
LOC: HO.HMCH 09:38
PROVIDERS: PCP Internal Medicine; Visit Provider Internal Medicine
DX: I25.10 Atherosclerotic heart disease of native coronary artery without angina pectoris (principal); E78.00 Pure hypercholesterolemia, unspecified; I10 Essential (primary) hypertension; R00.2 Palpitations; I35.1 Nonrheumatic aortic (valve) insufficiency; K21.9 Gastro-esophageal reflux disease without esophagitis; J30.9 Allergic rhinitis, unspecified; M51.360 Other intervertebral disc degeneration, lumbar region with discogenic back pain only; E55.9 Vitamin D deficiency, unspecified; G47.00 Insomnia, unspecified; F41.9 Anxiety disorder, unspecified

== ENCOUNTER → 2024-09-06 09:37 | Outpatient (BNVA) | payer MEDICARE, SELFPAY | PROVIDERS: PCP Internal Medicine; Visit Provider Internal Medicine | DX: I25.10 Atherosclerotic heart disease of native coronary artery without angina pectoris (principal); E78.00 Pure hypercholesterolemia, unspecified; I10 Essential (primary) hypertension; R00.2 Palpitations; I35.1 Nonrheumatic aortic (valve) insufficiency; K21.9 Gastro-esophageal reflux disease without esophagitis; J30.9 Allergic rhinitis, unspecified; M51.360 Other intervertebral disc degeneration, lumbar region with discogenic back pain only; E55.9 Vitamin D deficiency, unspecified; G47.00 Insomnia, unspecified; F41.9 Anxiety disorder, unspecified; Z95.1 Presence of aortocoronary bypass graft; Z95.2 Presence of prosthetic heart valve; Z79.82 Long term (current) use of aspirin; Z79.899 Other long term (current) drug therapy; Z13.31 Encounter for screening for depression; Z13.39 Encounter for screening examination for other mental health and behavioral disorders | CPT/HCPCS: 96127; 99212 ==

== ENCOUNTER 2024-09-07 10:40 | Outpatient (AMB) | payer MEDICARE, SELFPAY ==
[2024-09-07 10:42] VITALS: BP 100/62; PULSE 68; BMI 24.5
--- NOTE | 2024-09-07 10:42 | A.OFFVIS_ITS ---
Vital Signs 09/07/24 10:42 Height 6 ft Weight 180 lb 12.465 oz BMI 24.5 BP 100/62 Blood Pressure Location Lt brachial Position Sitting Pulse 68 Intake Visit Reasons: 6m follow up Intake Note: 6 month follow-up with ekg feeling ok Brick Veneer Maker Required: No Allergies No Known Allergies Allergy (Verified 09/06/24 10:13) Medication List - Last Reconciled 09/07/24 by Juan Alberto Liz MD amlodipine 2.5 mg PO DAILY 90 days amoxicillin 2,000 mg (4 x 500 mg) PO ONCE aspirin (Ecotrin Low Strength) 81 mg PO DAILY 90 days brimonidine 0.2% 1 drp ophthalmic (eye) bumetanide 1 mg orally 1 tablet in am and 1/2 tablet at noon time 90 days cholecalciferol (vitamin D3) 50 mcg PO BID doxepin 10 mg PO BEDTIME PRN 30 days ezetimibe (Zetia) 10 mg PO DAILY 90 days fluticasone propionate 50 mcg/actuation 2 sprays intranasal DAILY PRN 30 days ibuprofen 800 mg PO TID metoprolol succinate ER (Toprol XL) 12.5 mg (1/2 x 25 mg) PO DAILY 90 days omeprazole 20 mg PO DAILY 90 days rosuvastatin 40 mg PO DAILY terazosin 5 mg PO DAILY HPI Comments Details: Patrick comes for follow-up. Remains very active for his age and doing everything he needs to and lives independently. However he currently he is having sleep issues which makes him tired during the day. Denies any exertional shortness of breath, orthopnea, PND. No significant leg edema. No prolonged palpitation irregular heartbeat. No exertional chest pain. He does have when he is stressed out at nighttime frequent isolated extra beats [facility] Medical History Severe aortic regurgitation Palpitations Dermatochalasis of both upper eyelids Vitamin D deficiency Dizziness Overweight (BMI 25.0-29.9) Insomnia Sensorineural hearing loss (SNHL) of both ears Osteoarthritis Allergic rhinitis GERD without esophagitis Benign prostatic hyperplasia Peripheral neuropathy Lumbar degenerative disc disease Bilateral lower extremity edema Coronary artery disease Benign essential hypertension Pure hypercholesterolemia Surgical History History of aortic valve replacement with bioprosthetic valve Status post transcatheter aortic valve replacement S/P CABG x 5 Family History Father CVD (cardiovascular disease) Mother Medical history unknown Social History Housing: House Alcohol intake: current Alcohol intake frequency: holidays/special occasions only Alcohol type: wine Patient Tobacco Use Status: Former Tobacco user e-Cigarette/Vaping Use: Never Used Second Hand Smoke Exposure: Yes service: Yes Current occupational status: retired Cognitive needs: No Hearing needs: No Vision needs: Yes Review of Systems Const Denies chills, Denies fatigue, Denies fever(s), Denies frequent falls, Denies weakness, Denies weight gain and Denies weight loss ENT Denies dizziness Card Denies chest pain, Denies leg edema, Denies lightheadedness, Denies palpitations, Denies dyspnea, Denies dyspnea on exertion, Denies orthopnea and Denies other (loss of consciousness) Resp Denies cough, Denies dyspnea and Denies dyspnea on exertion GI Denies hematochezia and Denies change in stool character Musc Denies abnormal gait, Denies muscle weakness, Denies numbness, Denies radiating pain into limb and Denies tingling Neuro Denies abnormal gait, Denies dizziness, Denies frequent falls, Denies numbness, Denies tingling and Denies weakness Endo Denies fatigue and Denies palpitations Physical Exam Vital Signs: Last Vital Signs Pulse 68 09/07/24 10:42 BP 100/62 09/07/24 10:42 BMI result Body Mass Index 24.5 Const General: cooperative, comfortable, no acute distress, alert, awake, Physically active and well groomed Nutritional Appearance: average body habitus Orientation/consciousness: patient oriented x3 Limitations: no limitations Neck Neck: Yes trachea midline, Yes supple and Yes no JVD Chest Chest palpation & inspection: normal inspection of the chest and other (Well- healed sternotomy scar) Resp Effort & Inspection: normal respiratory effort Auscultation: clear to auscultation bilaterally Cardio Jugular venous distension: no JVD Palpation: normal PMI and other (Hyperdynamic) Rate: regular rate Rhythm: regular rhythm Heart sounds: S1 normal heart sound present, S2 normal heart sound present and Murmur heart sound present systolic early Bruits: carotid bruit on the left GI Auscultation: normal bowel sounds Skin General skin exam: no rashes or lesions noted Neuro General: patient oriented x3 and no focal motor deficits Extrem General: Yes no clubbing, cyanosis or edema Psych Appearance: grossly normal Affect: Anxious affect present Office Procedures EKG Details: EKG shows sinus rhythm with sinus arrhythmias with first-degree AV block other smith normal EKG 96479-Imzlqhtabhhfpzqds, Complete Assessment & Plan Assessment & Plan (1) Status post transcatheter aortic valve replacement: Comment: December 2022 for failed bioprosthetic aortic valve with severe aortic regurgitation Code(s): Z95.2 - Presence of prosthetic heart valve Category: Surgical Plan: Status post transcatheter aortic valve replacement for failed bioprosthetic valve. Currently doing very well with much improved symptoms and clinical functionality. Discussed with him about the management. Continue current low- dose aspirin therapy for life. Continue SBE prophylaxis as per ACC/aha guidelines. Follow-up echocardiogram in 6 months time. Continue aggressive vascular risk factor modification. (2) (HFpEF) heart failure with preserved ejection fraction: Code(s): I50.30 - Unspecified diastolic (congestive) heart failure Category: Medical Plan: Heart failure preserved ejection fraction, clinically euvolemic well compensated. Currently doing well on current diuretic regimen. Management was discussed. Discussed about continue blood pressure control. Daily weight monitoring avoidance salt loading was discussed. Additional diuretics therapy as need be. He understands agrees. Follow-up echocardiogram in 6 months time. (3) Coronary artery disease: Comment: S/P CABG (5-vessel) in 2003 Code(s): I25.10 - Atherosclerotic heart disease of [place] coronary artery without angina pectoris Category: Medical Qualifiers: Coronary Disease-Associated Artery/Lesion type: [place] artery [place] vs. transplanted heart: [place] heart Associated angina: without angina Qualified Code(s): I25.10 - Atherosclerotic heart disease of [place] coronary ar garth without angina pectoris Plan: CAD with remote coronary artery bypass grafting patent grafts. Currently doing well with no symptoms of angina. Continue aggressive medical therapy. Currently on low-dose aspirin therapy. Continue high-intensity statin therapy with ezetimibe therapy. Target goal LDL less than 70 mg/dL. Encouraged to mendez ntain activity level as tolerated. Advised to call me with any new symptoms. (4) Palpitations: Code(s): R00.2 - Palpitations Category: Medical Plan: Symptoms of palpitation probably driven by his stress. Discussed with him about stress mitigation strategy and better sleep patterns and sleep hygiene. He showed understanding. Currently on low-dose metoprolol therapy can not maximize due to lower heart rate. 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 Advised to call me with change in his symptoms. Will follow up in the clinic in 6 months time, sooner p.r.n.. Thank you for allowing me to partake in his care Orders: Orders CA echo transthoracic complete 6 Months Z95.2 - Presence of prosthetic heart valve Coding Level of Care Code Est Pt Level 4 (58454) Complex EM visit Add On G2211 Diagnoses Status post transcatheter aortic valve replacement Z95.2 (HFpEF) heart failure with preserved ejection fraction I50.30 Coronary artery disease involving [place] coronary artery of [place] heart without angina pectoris I25.10 Coronary Disease-Associated Artery/Lesion type: [place] artery [place] vs. transplanted heart: [place] heart Associated angina: without angina Palpitations R00.2 CPT Codes EKG - CPT: 89882-Ojyzhencyryygpxmx, Complete ([id number])
--- OUTSIDE RECORDS SUMMARY | 2024-09-07 10:48 | XMS_ITS | Patient Health Record ---
Author Organization [facility] Address [address] [place] [address] Care Team Providers Care Tail Dogger Name Role Phone Patrick Pereyra Unavailable [phone] Reason For Referral No Information Plan Of Treatment No Information
--- OUTSIDE RECORDS SUMMARY | 2024-09-07 10:48 | XMS_ITS | Patient Health Record ---
Author Organization [facility] Address [address] [facility] [place] [address] Care Team Providers Care Sampler Pickup Name Role Phone Fox HERRING, [place] Primary Care Provider Shaggy Cherry Unavailable [phone] Allergies No Known Allergies Reason For Referral [...] atherosclerosis of arteries of lower limbs (disorder) ([id number] ) Atherosclerosis of [place] artery of both lower extremities, with unspecified presence of clinical manifestation (I70.203) Active confirmed Vital Signs Blood pressure diastolic 68 mm Hg 09/04/2024 Height 6ft in 09/04/2024 Blood pressure systolic 126 mm Hg 09/04/2024 Weight 175 lbs 09/04/2024 BMI 23.73 kg/m2 09/04/2024 Procedures Procedure Date Ordered Date Performed Result Body Sit e 06169-YQVIMAP NAIL, 1-5 10/07/2023 N/A 92865-TBOG SKIN LESIONS, 2 TO 4 10/07/2023 N/A S7638-QQBCNGMV DYSTROPHIC NAILS ANY # 10/07/2023 N/A 55944-FRVCSUB NAIL, 1-5 01/06/2024 N/A 37745-ICWD SKIN LESIONS, 2 TO 4 01/06/2024 N/A J5904-JQJQLRGM DYSTROPHIC NAILS ANY # 01/06/2024 N/A 01109-LXCPQQS NAIL, 1-5 05/04/2024 N/A 35621-ALUL SKIN LESIONS, 2 TO 4 05/04/2024 N/A L6436-DJICVQFI DYSTROPHIC NAILS ANY # 05/04/2024 N/A 77105-QYCRNBW NAIL, 1-5 09/04/2024 N/A 69528-RABT SKIN LESIONS, 2 TO 4 09/04/2024 N/A T0708-QQQMZSOT DYSTROPHIC NAILS ANY # 09/04/2024 N/A Encounters [facility]counter [facility] [address] [facility]/07/[facility]23 Shaggy Styles Atherosclerosis of [place] artery of both lower extremities, with unspecified presence of clinical manifestation I70.203 ; Tinea unguium B35.1 ; Pain in right toe(s) M79.674 and Pain in left toe(s) M79.675 [facility] [address] 01/06/2024 Shaggy Styles Atherosclerosis of [place] artery of both lower extremities, with unspecified presence of clinical manifestation I70.203 ; Tinea unguium B35.1 ; Pain in right toe(s) M79.674 and Pain in left toe(s) M79.[address] [address] 05/04/2024 Shaggy Styles Atherosclerosis of [place] artery of both lower extremities, with unspecified presence of clinical manifestation I70.203 ; Tinea unguium B35.1 ; Pain in right toe(s) M79.674 and Pain in left toe(s) M79.[address] [address] 09/04/2024 Shaggy Styles Atherosclerosis of [place] artery of both lower extremities, with unspecified presence of clinical manifestation I70.203 ; Tinea unguium B35.1 ; Pain in right toe(s) M79.674 and Pain in left toe(s) M79.675 Assessments Encounter Date Diagnosis (ICD Code) Assessment Notes Treatment Notes Treatment Clinical Notes Section Notes 10/07/2023 Tinea unguium (ICD-10 - B35.1) 10/07/2023 Atherosclerosis of [place] artery of both lower extremities, with unspecified presence of clinical manifestation (ICD-10 - I70.203) 01/06/2024 Tinea unguium (ICD-10 - B35.1) 01/06/2024 Atherosclerosis of [place] artery of both lower extremities, with unspecified presence of clinical manifestation (ICD-10 - I70.203) 05/04/2024 Tinea unguium (ICD-10 - B35.1) 05/04/2024 Atherosclerosis of [place] artery of both lower extremities, with unspecified presence of clinical manifestation (ICD-10 - I70.203) 09/04/2024 Tinea unguium (ICD-10 - B35.1) 09/04/2024 Atherosclerosis of [place] artery of both lower extremities, with unspecified [...] Treatment Pending Test Test Name Order Date 06359-WWQLROZ NAIL, 1-09/14/2022 99127-ISWPPUT NAIL, -12/21/2022 42199-SEGKDVR NAIL, -03/22/2023 45662-MCVFPXK NAIL, -06/24/2023 20082-XGQDZTW NAIL, -10/07/2023 85187-MENILFH NAIL, -01/06/2024 52389-OMNJILZ NAIL, -05/04/2024 07529-AACYUSL NAIL, -09/04/2024 62700-Zrsclheo Plate 09/14/2022 40975-LTKN SKIN LESIONS, 2 TO 4 09/15/19 23 25744-ELDY SKIN LESIONS, 2 TO 4 03/22/19 24 69998-BPAD SKIN LESIONS, 2 TO 4 05/05/19 25 12223-UJYD SKIN LESIONS, 2 TO 4 01/06/20 24 36042-JTSE SKIN LESIONS, 2 TO 4 10/07/19 24 61619-VTUP SKIN LESIONS, 2 TO 4 06/24/19 24 34739-CNRR SKIN LESIONS, 2 TO 4 09/05/19 25 94349-ZWEA SKIN LESIONS, 2 TO 4 12/22/19 23 J7190-BCTEYPWN DYSTROPHIC NAILS ANY # S3861-NLOCOPDW DYSTROPHIC NAILS ANY # Y1714-FBKYTKLR DYSTROPHIC NAILS ANY # I1525-LWWTGQWJ DYSTROPHIC NAILS ANY # A1148-VVVNNLAB DYSTROPHIC NAILS ANY # G2902-VFLGFJJC DYSTROPHIC NAILS ANY # L4052-FKITGCUH DYSTROPHIC NAILS ANY # E4919-XMYEYHDD DYSTROPHIC NAILS ANY # Next Appt Details Provider Name:Shaggy Styles , 01/01/2025 09:00:00 AM, [address] [place], [address], Insurance Providers Payer Name Payer Address Payer Phone Subscriber Number Group Number Insured Name Patient Relationship to Insured Coverage Start Date Coverage End Date [employer] [address] [place] [address] [phone] [id number] Patrick Magdaleno Self - patient is the [...]
== END 2024-09-07 11:23 | disposition home or self-care (01) ==
LOC: HO.HCS 10:40
PROVIDERS: PCP Internal Medicine; Visit Provider Internal Medicine Cardiovascular Disease
DX: Z95.2 Presence of prosthetic heart valve (principal); I50.30 Unspecified diastolic (congestive) heart failure; I25.10 Atherosclerotic heart disease of native coronary artery without angina pectoris; R00.2 Palpitations
CPT/HCPCS: 93010; 99214; G2211

== ENCOUNTER → 2024-09-07 10:40 | Outpatient (BNVA) | payer MEDICARE, SELFPAY | PROVIDERS: PCP Internal Medicine; Visit Provider Internal Medicine Cardiovascular Disease | DX: I50.30 Unspecified diastolic (congestive) heart failure (principal); I25.10 Atherosclerotic heart disease of native coronary artery without angina pectoris; R00.2 Palpitations; I44.0 Atrioventricular block, first degree; Z95.2 Presence of prosthetic heart valve | CPT/HCPCS: 93005; 99212 ==

== ENCOUNTER 2024-10-04 12:28 | Outpatient (AMB) | payer MEDICARE, SELFPAY ==
[2024-10-04 12:45] VITALS: BP 112/62; PULSE 63; TEMP 36.3; O2SAT 95; BMI 24.5
--- NOTE | 2024-10-04 12:45 | A.OFFPC_ITS ---
Vital Signs 10/04/24 12:45 Height 6 ft Weight 180 lb 6 oz BMI 24.5 BP 112/62 Blood Pressure Location Lt brachial Position Sitting Pulse 63 Pulse Source Pulse Oximeter Temp 97.3 F Temp Source Temporal Artery Scan Pulse Oximetry (%) 95 Oxygen Delivery Method Room Air Intake Visit Reasons: preop Allergies doxepin Adverse Reaction (Intermediate, Verified 10/04/24 13:18) nightmares Medication List - Last Reconciled 10/04/24 by Ceferino Braxton MD amlodipine 2.5 mg PO DAILY 90 days amoxicillin 2,000 mg (4 x 500 mg) PO ONCE aspirin (Ecotrin Low Strength) 81 mg PO DAILY 90 days brimonidine 0.2% 1 drp ophthalmic (eye) DAILY bumetanide 1 mg orally 1 tablet in am and 1/2 tablet at noon time 90 days cholecalciferol (vitamin D3) 50 mcg PO BID ezetimibe (Zetia) 10 mg PO DAILY 90 days fluticasone propionate 50 mcg/actuation 2 sprays intranasal DAILY PRN 30 days ibuprofen 800 mg PO TID metoprolol succinate ER (Toprol XL) 12.5 mg (1/2 x 25 mg) PO DAILY 90 days omeprazole 20 mg PO DAILY 90 days rosuvastatin 40 mg PO DAILY terazosin 5 mg PO DAILY Tobacco use date assessed: 10/04/24 Fall risk assessment: No Falls in past year Last assessed Fall Risk: 10/04/24 Dental Screening Dental Screen Date: 10/04/24 Did you have a dental visit in the last 12 months?: Yes Did you have a dental problem in the last 6 months where you did not have access to dental care?: No Was dental information given to patient?: Patient has dentist HPI preop HPI Details Patient comes in today at the request of Dr. Rigoberto Nielsen for a preoperative medical examination for clearance for surgery He is currently scheduled for blepharoplasty of both upper eyelids under local anesthesia with sedation on 10/09/2024 Patient states that he currently feels okay Still has his usual low back pain and stiffness but states that these are mostly manageable He is also still having problems sleeping at night and states that he could not tolerate the Doxepin that he was recently prescribed, as he would experience very vivid dreams and even have nightmares whenever he took the medication States that he stopped taking the medication immediately and would like to know what else he can try for him to get some sleep at night He denies any headaches or dizziness Denies any chest pains, no increased SOB No nausea/vomiting, no abdominal pain No change in bowel habits noted [facility]LY [facility] Medical History Severe aortic regurgitation Palpitations Dermatochalasis of both upper eyelids Vitamin D deficiency Dizziness Overweight (BMI 25.0-29.9) Insomnia Sensorineural hearing loss (SNHL) of both ears Osteoarthritis Allergic rhinitis GERD without esophagitis Benign prostatic hyperplasia Peripheral neuropathy Lumbar degenerative disc disease Bilateral lower extremity edema Coronary artery disease Benign essential hypertension Pure hypercholesterolemia Surgical History History of aortic valve replacement with bioprosthetic valve Status post transcatheter aortic valve replacement S/P CABG x 5 Family History Father CVD (cardiovascular disease) Mother Medical history unknown Social History Housing: House Alcohol intake: current Alcohol intake frequency: holidays/special occasions only Alcohol type: wine Patient Tobacco Use Status: Former Tobacco user Tobacco use type: Cigarette e-Cigarette/Vaping Use: Never Used Second Hand Smoke Exposure: Yes service: Yes Current occupational status: retired Cognitive needs: No Hearing needs: No Vision needs: Yes Questionnaire PHQ-9 Over the last 2 weeks, how often have you been bothered by any of the following problems? 1. Little interest or pleasure in doing things: more than half the days 2. Feeling down, depressed, or hopeless: more than half the days 3. Trouble falling or staying asleep, or sleeping too much: more than half the days 4. Feeling tired or having little energy: more than half the days 5. Poor appetite or overeating: several days 6. Feeling bad about yourself - or that you are a failure or have let yourself or your family down: not at all 7. Trouble concentrating on things, such as reading the newspaper or watching television: not at all 8. Moving or speaking so slowly that other people could have noticed. Or the opposite - being so fidgety or restless that you have been moving around a lot more than usual: not at all 9. Thoughts that you would be better off or of hurting yourself in some way: not at all Total score: 9 Depression Screening Interpretation: Positive Depression Screening Follow-up: Existing condition and In treatment Depression Screening Done: Yes 34734 - PHQ-9 Billing: Yes Source: Developed by Drs. Patrick Osorio, Lashae Davila, Krishna Webster and colleagues, with an educational kacie from [email or web address]. Thrive Questionnaire Date Thrive assessed: 09/06/24 I am a: Patient What is your living situation today?: I have a steady place to live Within the past 12 months, did the food you bought not last and you didn't have the money to get more?: Never true Within the past 12 months, did you worry whether your food would run out before you got money to buy more?: Never true Do you have trouble paying for medicines?: No Do you have trouble getting transportation to medical appointments?: No Do you have trouble paying your heating and electricity bill?: No Do you have trouble taking care of your child, family member or friend?: No Do you have trouble with day-to-day activities such as bathing, preparing meals, shopping, managing finances, etc.?: No Are you currently unemployed and looking for a job?: No Are you interested in more education?: No Please select the resources that you would like help with: None Currently or been in a relationship where the following occur: No concerns reported THRIVE Score: 0 AUDIT C Alcohol Use Questionnaire (AUDIT-C) 1. How often do you have a drink containing alcohol?: Monthly or less 2. How many drinks containing alcohol do you have on a typical day when you are drinking?: 1 or 2 3. How often do you have six or more drinks on one occasion?: Never Total Score: 1 CAHD-7 AMB Questionnaire CHAD-7 Date CHAD - 7 assessed: 09/06/24 Feeling nervous, anxious, or on edge: 0 = Not at all Not being able to stop or control worryin = Not at all Worrying too much about different things: 0 = Not at all Trouble relaxin = Not at all Being so restless that it is hard to sit still: 0 = Not at all Becoming easily annoyed or irritable: 0 = Not at all Feeling afraid as if something awful might happen: 0 = Not at all Total CHAD-7 score (0-4 normal; 5-9 mild; 10-14 moderate; 15-21 severe): 0 Source: Developed by Drs. Patrick Osorio, Lashae Davila, Krishna Webster and colleagues, with an educational kacie from [email or web address]. Review of Systems Const Denies chills, Reports difficulty sleeping, Reports fatigue, Denies fever(s) and Denies headache(s) ENT Denies dysphagia, Denies dizziness, Denies otalgia, Denies headache(s), Denies n [place] pain, Denies odynophagia and Denies sore throat Card Denies chest pain, Denies irregular heart rhythm (symptoms have improved with Metoprolol), Denies palpitations and Denies dyspnea Resp Denies chest congestion, Denies cough and Denies dyspnea GI Denies abdominal pain, Denies constipation, Denies dysphagia, Denies diarrhea, Denies nausea, Denies odynophagia and Denies vomiting Denies difficulty urinating, Denies dysuria, Denies nocturia and Denies urinary frequency Musc Reports back pain (over the lower back - chronic) and Denies neck pain Skin/Breast Denies rash Neuro Denies dizziness and Denies headache(s) Psych Denies anxiety Endo Reports fatigue and Denies palpitations Physical exam (Primary Care) Vital Signs: Last Vital Signs Temp 97.3 F 10/04/24 12:45 Pulse 63 10/04/24 12:45 BP 112/62 10/04/24 12:45 Pulse Ox 95 10/04/24 12:45 Oxygen Delivery Method Room Air 10/04/24 12:45 BMI result Body Mass Index 24.5 Tobacco/Smoking Status: Tobacco use Status Tobacco use date assessed 10/04/24 10/04/24 12:50 Patient Tobacco Use Status Former Tobacco user 10/04/24 12:50 Tobacco use type Cigarette 10/04/24 12:50 e-Cigarette/Vaping Use Never Used 10/04/24 12:50 PHQ-9: PHQ-9 Score PHQ-9: Total score 9 10/04/24 13:17 Depression Screening Interpretation: Positive Depression Screening Follow-up: Existing condition and In treatment Thrive Assessment: Date of Thrive Assessment Date Thrive assessed 09/06/24 10/04/24 12:50 Currently or been in a relationship where the following occur: No concerns reported Const General: no acute distress and alert HENMT Throat: Yes posterior oropharynx normal and Yes tonsils normal (no TP congestion noted) Neck Neck: Yes supple and No lymphadenopathy Thyroid: Thyroid normal Resp Auscultation: clear to auscultation bilaterally, no rales and no wheezes Cardio Rate: regular rate Rhythm: regular rhythm Heart sounds: Murmur heart sound present systolic early and soft GI Palpation (GI): Soft to palpation and nontender Auscultation: normal bowel sounds General: Yes no CVA tenderness Back/Spine/Pelvis Back: no CVA tenderness Thoracic/Lumbar Spine: lumbar spinal tenderness Skin Rashes: no rashes Extrem General: Yes no clubbing, cyanosis or edema Coding Level of Care Code Est Pt Level 4 (01669) Diagnoses Preoperative examination Z01.818 Mechanical ptosis of bilateral eyelids H02.413 Coronary artery disease involving [place] coronary artery of [place] heart without angina pectoris I25.10 Coronary Disease-Associated Artery/Lesion type: [place] artery [place] vs. transplanted heart: [place] heart Associated angina: without angina Pure hypercholesterolemia E78.00 Benign essential hypertension I10 Palpitations R00.2 Severe aortic regurgitation I35.1 GERD without esophagitis K21.9 Degeneration of intervertebral disc of lumbar region with discogenic back pain M51.360 Disc-related pain type: discogenic back pain only Insomnia, unspecified type G47.00 Insomnia type: unspecified Anxiety F41.9 Additional Codes PHQ-9 - 91931 - PHQ-9 Billing: Yes ([id number]) Assessment & Plan Assessment & Plan (1) Preoperative examination: Code(s): Z01.818 - Encounter for other preprocedural examination Category: Medical Plan: Patient presents with acceptable risks for planned low cardiac risk procedure He is currently medically optimized and has no contraindications to undergo planned eyelid procedure(s) (2) Mechanical ptosis of bilateral eyelids: Code(s): H02.413 - Mechanical ptosis of bilateral eyelids Category: Medical Plan: He is scheduled for blepharoplasty of both upper eyelids under local anesthesia with sedation on 10/09/[address] Nielsen (3) Coronary artery disease: Comment: S/P CABG (5-vessel) in 2003 Code(s): I25.10 - Atherosclerotic heart disease of [place] coronary artery without angina pectoris Category: Medical Qualifiers: Coronary Disease-Associated Artery/Lesion type: [place] artery [place] vs. transplanted heart: [place] heart Associated angina: without angina Qualified Code(s): I25.10 - Atherosclerotic heart disease of [place] coronary artery without angina pectoris Plan: Patient is currently asymptomatic from a cardiac standpoint S/P CABG (5-vessel) in 2003 Coronary angiogram done on 12/02/2022 revealed 80% stenosis of the proximal LAD, LMCA and ostial diagonal, 70% stenosis of the proximal Cx and 99% stenosis of the ostial RCA Continue Aspirin 81 mg QD and aggressive risk factor modification Follow up with cardiology as scheduled (4) Pure hypercholesterolemia: Code(s): E78.00 - Pure hypercholesterolemia, unspecified Category: Medical Plan: Reinforced low cholesterol diet Continue Rosuvastatin 40 mg QD and Ezetimibe 10 mg QD (5) Benign essential hypertension: Code(s): I10 - Essential (primary) hypertension Category: Medical Plan: Reinforced low sodium diet - goal is systolic BP of at least 140 to 150 mm or less Continue Amlodipine 2.5 mg QD; he is also on Metoprolol ER 25 mg 1/2 tablet QD but this was more for his palpitations (6) Palpitations: Code(s): R00.2 - Palpitations Category: Medical Plan: 3 day Holter monitor done last year revealed (+) frequent supraventricular ec topy with very brief run and frequent ventricular ectopy with a burden of 1.1%. Couplets noted, some triplets, bigeminy, trigeminy. Longest run was 3 beats, with no pauses or high-grade heart blocks Patient was started on Metoprolol ER 25 mg 1/2 tablet QD by cardiology and he states that his symptoms seem to have improved a lot since - to continue on Metoprolol ER 25 mg 1/2 tablet QD Follow up with cardiology as scheduled (7) Severe aortic regurgitation: Comment: S/P TAVR in 12/2022 Code(s): I35.1 - Nonrheumatic aortic (valve) insufficiency Category: Medical Plan: S/P TAVR at [facility] in December 2022 with complete resolution of all of his previous cardiac symptoms since his valve replacement surgery Repeat echocardiogram done last year revealed a normal left ventricular systolic function, with the visually estimated ejection fraction between 55-60%. The mid anteroseptal segment is hypokinetic and a bioprosthetic aortic valve is present - the prosthetic aortic valve appears to be functioning normally Follow up with cardiology as scheduled (8) GERD without esophagitis: Code(s): K21.9 - Gastro-esophageal reflux disease without esophagitis Category: Medical Plan: Dietary restrictions reinforced Continue Omeprazole 20 mg QD (9) Lumbar degenerative disc disease: Code(s): M51.36 - Other intervertebral disc degeneration, lumbar region Category: Medical Qualifiers: Disc-related pain type: discogenic back pain only Qualified Code(s): M51.360 - Other intervertebral disc degeneration, lumbar region with discogenic back pain only Plan: Reinforced activity and weight-lifting restrictions Repeat lumbar spine x-rays done in 2021 revealed (+) dextrocurvature of the lumbar spine centered at the L2 vertebral body and minimal grade 1 anterolisthesis of L4 on L5 that are unchanged from previous. There are also multilevel degenerative disc disease and bilateral facet arthropathy that have slightly progressed compared to the prior examination Patient states that he is still able to put up with his low back pain, which he's had for years He has been to physical therapy in the past with only partial improvement of his low back pain; states that he continues to do the back exercises and stretching that he was taught by physical therapy previously on a regular basis help manage his back pain Patient has been advised that if his back pain gets worse, we can consider referring him back to physical therapy or send him for an MRI of the lumbar spine for further evaluation (10) Insomnia: Code(s): G47.00 - Insomnia, unspecified Category: Medical Qualifiers: Insomnia type: unspecified Qualified Code(s): G47.00 - Insomnia, unspecified Plan: Sleep hygiene reinforced Continue Zolpidem 10 mg Q HS PRN We tried him additionally on Doxepin 10 mg Q HS PRN at his last visit but he states that he started experiencing very vivid dreams and even has nightmares at times and he has stopped taking the medication altogether Have advised patient that he can try some OTC Melatonin for now, and he can start at 5 mg and slowly work it up all the way to 10 mg Q HS as needed (11) Anxiety: Code(s): F41.9 - Anxiety disorder, unspecified Category: Medical Plan: Continue Sertraline 25 mg QD Plan Patient is currently medically optimized and has no contraindications to undergo blepharoplasty of both upper eyelids as scheduled Follow-up as scheduled in January 2025
== END 2024-10-04 13:58 | disposition home or self-care (01) ==
LOC: HO.HMCH 12:29
PROVIDERS: PCP Internal Medicine; Visit Provider Internal Medicine
DX: Z01.818 Encounter for other preprocedural examination (principal); H02.413 Mechanical ptosis of bilateral eyelids; I25.10 Atherosclerotic heart disease of native coronary artery without angina pectoris; E78.00 Pure hypercholesterolemia, unspecified; I10 Essential (primary) hypertension; R00.2 Palpitations; I35.1 Nonrheumatic aortic (valve) insufficiency; K21.9 Gastro-esophageal reflux disease without esophagitis; M51.360 Other intervertebral disc degeneration, lumbar region with discogenic back pain only; G47.00 Insomnia, unspecified; F41.9 Anxiety disorder, unspecified

== ENCOUNTER → 2024-10-04 12:28 | Outpatient (BNVA) | payer MEDICARE, SELFPAY | PROVIDERS: PCP Internal Medicine; Visit Provider Internal Medicine | DX: Z01.818 Encounter for other preprocedural examination (principal); H02.413 Mechanical ptosis of bilateral eyelids; I25.10 Atherosclerotic heart disease of native coronary artery without angina pectoris; E78.00 Pure hypercholesterolemia, unspecified; I10 Essential (primary) hypertension; R00.2 Palpitations; I35.1 Nonrheumatic aortic (valve) insufficiency; K21.9 Gastro-esophageal reflux disease without esophagitis; M51.360 Other intervertebral disc degeneration, lumbar region with discogenic back pain only; G47.00 Insomnia, unspecified; F41.9 Anxiety disorder, unspecified | CPT/HCPCS: 96127; 99212 ==

== ENCOUNTER 2024-10-08 09:53 | Day surgery (SDC) | payer MEDICARE, SELFPAY ==
--- OUTSIDE RECORDS SUMMARY | 2024-09-11 14:42 | XMS_ITS | Patient Health Record ---
Author Organization [facility] Address [address] [place] [address] Care Team Providers Care Hospice Clinical Manager Name Role Phone Patrick Pereyra Unavailable [phone] Reason For Referral No Information Plan Of Treatment No Information
--- OUTSIDE RECORDS SUMMARY | 2024-09-11 14:42 | XMS_ITS | Patient Health Record ---
Author Organization [facility] Address [address] [facility] [address] Care Team Providers Care Rn School Name Role Phone Fox HERRING, [place] Primary Care Provider Shaggy Cherry Unavailable [phone] Allergies No Known Allergies Reason For Referral [...] atherosclerosis of arteries of lower limbs (disorder) ([id number] ) Atherosclerosis of [place] artery of both lower extremities, with unspecified presence of clinical manifestation (I70.203) Active confirmed Vital Signs Blood pressure diastolic 68 mm Hg 09/04/2024 Height 6ft in 09/04/2024 Blood pressure systolic 126 mm Hg 09/04/2024 Weight 175 lbs 09/04/2024 BMI 23.73 kg/m2 09/04/2024 Procedures Procedure Date Ordered Date Performed Result Body Sit e 31754-BDJSXFV NAIL, 1-5 10/07/2023 N/A 17961-MFLQ SKIN LESIONS, 2 TO 4 10/07/2023 N/A F1286-NVCFOYSF DYSTROPHIC NAILS ANY # 10/07/2023 N/A 27940-LWPCRKU NAIL, 1-5 01/06/2024 N/A 67330-BNMY SKIN LESIONS, 2 TO 4 01/06/2024 N/A A6536-OOJPWORP DYSTROPHIC NAILS ANY # 01/06/2024 N/A 00657-SBWSGHL NAIL, 1-5 05/04/2024 N/A 48885-VTYO SKIN LESIONS, 2 TO 4 05/04/2024 N/A A8645-HKEUTLXL DYSTROPHIC NAILS ANY # 05/04/2024 N/A 32313-YKCFEIX NAIL, 1-5 09/04/2024 N/A 84231-EAIE SKIN LESIONS, 2 TO 4 09/04/2024 N/A I2954-YHNACBNT DYSTROPHIC NAILS ANY # 09/04/2024 N/A Encounters [facility]counter [facility] [address] [facility]/07/[facility]23 Shaggy Styles Atherosclerosis of [place] artery of both lower extremities, with unspecified presence of clinical manifestation I70.203 ; Tinea unguium B35.1 ; Pain in right toe(s) M79.674 and Pain in left toe(s) M79.675 [facility] [address] 01/06/2024 Shaggy Styles Atherosclerosis of [place] artery of both lower extremities, with unspecified presence of clinical manifestation I70.203 ; Tinea unguium B35.1 ; Pain in right toe(s) M79.674 and Pain in left toe(s) M79.[address] [address] 05/04/2024 Shaggy Styles Atherosclerosis of [place] artery of both lower extremities, with unspecified presence of clinical manifestation I70.203 ; Tinea unguium B35.1 ; Pain in right toe(s) M79.674 and Pain in left toe(s) M79.[address] [address] 09/04/2024 Shaggy Styles Atherosclerosis of [place] artery of both lower extremities, with unspecified presence of clinical manifestation I70.203 ; Tinea unguium B35.1 ; Pain in right toe(s) M79.674 and Pain in left toe(s) M79.675 Assessments Encounter Date Diagnosis (ICD Code) Assessment Notes Treatment Notes Treatment Clinical Notes Section Notes 10/07/2023 Tinea unguium (ICD-10 - B35.1) 10/07/2023 Atherosclerosis of [place] artery of both lower extremities, with unspecified presence of clinical manifestation (ICD-10 - I70.203) 01/06/2024 Tinea unguium (ICD-10 - B35.1) 01/06/2024 Atherosclerosis of [place] artery of both lower extremities, with unspecified presence of clinical manifestation (ICD-10 - I70.203) 05/04/2024 Tinea unguium (ICD-10 - B35.1) 05/04/2024 Atherosclerosis of [place] artery of both lower extremities, with unspecified presence of clinical manifestation (ICD-10 - I70.203) 09/04/2024 Tinea unguium (ICD-10 - B35.1) 09/04/2024 Atherosclerosis of [place] artery of both lower extremities, with unspecified [...] Treatment Pending Test Test Name Order Date 08090-DHESVTQ NAIL, 1-09/14/2022 91419-JZRFCXM NAIL, -12/21/2022 23580-YESKZNG NAIL, -03/22/2023 05374-POFPUSS NAIL, -06/24/2023 22339-KAMUCSK NAIL, -10/07/2023 49218-NFIPXLJ NAIL, -01/06/2024 18858-ZBIFIEI NAIL, -05/04/2024 83718-PVUPWKD NAIL, -09/04/2024 80043-Yovyjknn Plate 09/14/2022 19037-NGJL SKIN LESIONS, 2 TO 4 09/15/19 23 17616-POOV SKIN LESIONS, 2 TO 4 03/22/19 24 47048-LCYI SKIN LESIONS, 2 TO 4 05/05/19 25 56472-KDUN SKIN LESIONS, 2 TO 4 01/06/20 24 00961-DTEQ SKIN LESIONS, 2 TO 4 10/07/19 24 13588-DREI SKIN LESIONS, 2 TO 4 06/24/19 24 37362-IBSW SKIN LESIONS, 2 TO 4 09/05/19 25 64977-ZGYP SKIN LESIONS, 2 TO 4 12/22/19 23 Y9160-ZZFMCUXH DYSTROPHIC NAILS ANY # F2515-TGTLMQNS DYSTROPHIC NAILS ANY # X1052-JXQKQXNL DYSTROPHIC NAILS ANY # S3448-HYLYCFUK DYSTROPHIC NAILS ANY # E5391-MSQCZYUJ DYSTROPHIC NAILS ANY # M4129-IWYKTGMS DYSTROPHIC NAILS ANY # I6132-OSXSPDIB DYSTROPHIC NAILS ANY # Z3481-VPCBRWZP DYSTROPHIC NAILS ANY # Next Appt Details Provider Name:Shaggy Styles , 01/01/2025 09:00:00 AM, [address] [place], [address], Insurance Providers Payer Name Payer Address Payer Phone Subscriber Number Group Number Insured Name Patient Relationship to Insured Coverage Start Date Coverage End Date [employer] [address] [place] [address] [id number] Patrick Magdaleno Self - patient is the [...]
[2024-10-03 09:12] VITALS: BMI 24.5
--- NOTE | 2024-10-05 14:33 | P.CONAN_ITS ---
Documented by User: Cher Hutchins NP 10/05/24 14:38 HPI - Anesthesia Eval Consult details Narrative: 89 yr old male for bilateral Levator Resect/Recess Medically optimized by PCP at 10/04/24 clearance visit H/O aortic valve replacement with biprosthetic valve: echo updated 02/2024 s/p CABG x5: Per August 2024 [facility] cardiology visit, currently doing well with no symptoms of angina. Continue aggressive medical therapy PMFSH Active Problems Active Problems: All Active Problems Mechanical ptosis of bilateral eyelids (Acute) Elevated TSH (Acute) Status post transcatheter aortic valve replacement (Acute) (HFpEF) heart failure with preserved ejection fraction (Acute) Palpitations (Acute) Palpitations (Acute) Dermatochalasis of both upper eyelids (Acute) Preoperative examination (Acute) Chest discomfort (Acute) Onycholysis of toenail (Acute) Anxiety (Acute) Exertional chest pain (Acute) Vitamin D deficiency (Acute) Dizziness (Acute) Lightheadedness (Acute) Overweight (BMI 25.0-29.9) (Acute) Insomnia (Acute) Sensorineural hearing loss (SNHL) of both ears (Acute) Osteoarthritis (Acute) Allergic rhinitis (Acute) GERD without esophagitis (Acute) Benign prostatic hyperplasia (Acute) Peripheral neuropathy (Acute) Lumbar degenerative disc disease (Acute) Bilateral lower extremity edema (Acute) Coronary artery disease (Acute) Benign essential hypertension (Acute) Pure hypercholesterolemia (Acute) Past Medical History Medical History Severe aortic regurgitation Palpitations Dermatochalasis of both upper eyelids Vitamin D deficiency Dizziness Overweight (BMI 25.0-29.9) Insomnia Sensorineural hearing loss (SNHL) of both ears Osteoarthritis Allergic rhinitis GERD without esophagitis Benign prostatic hyperplasia Peripheral neuropathy Lumbar degenerative disc disease Bilateral lower extremity edema Coronary artery disease Benign essential hypertension Pure hypercholesterolemia Family History Family History Father CVD (cardiovascular disease) Mother Medical history unknown Surgical History Surgical History History of aortic valve replacement with bioprosthetic valve Status post transcatheter aortic valve replacement S/P CABG x 5 Social History Social History Housing: House Alcohol intake: current Alcohol intake frequency: holidays/special occasions only Alcohol type: wine Patient Tobacco Use Status: Former Tobacco user Tobacco use type: Cigarette e-Cigarette/Vaping Use: Never Used Second Hand Smoke Exposure: Yes Use of substances other than those prescribed or required for medical reasons: No Advance Directives Information Provided: Yes (as above noted) Advance Directives on File: No service: Yes Current occupational status: retired Cognitive needs: No Hearing needs: No Vision needs: Yes Meds Allergies Allergy/AdvReac Type Severity Reaction Status Date / Time doxepin AdvReac Intermediate nightmares Verified 10/04/24 13:18 Active Medications: Current Medications Povidone Iodine (Povidone Iodine 5 % Ophth Soln 30 Ml Bottle) 1 appl EYE-BOTH PREOP PRN PRN Reason: Pre-Op Surgical Implant Prophy Home Medications ?Medication ?Instructions ?Recorded ?Confirmed ?Last Taken ?Type brimonidine 0.2 % eye drops 1 drp ophthalmic (eye) BRIDGER LY 03/03/20 10/04/24 10/08/24 History cholecalciferol (vitamin D3) 50 50 mcg PO BID 12/16/23 10/04/24 Unknown History mcg (2,000 unit) capsule Exam Height,Weight and Vital Signs: Height 6 ft Weight 82.1 kg Narrative Narrative: EKG 08/2024 Sinus rhythm with sinus arrhythmia, 1st degree AV block, rate 68 Procedure Date: 03/08/2024 Procedure Type: Transthoracic Echocardiogram Location: OP Height: 182.88 cm Weight: 78.93 kg BSA: 2.01 m2 Heart Rate: 61 bpm BP: 120 / 80 mmHg Medical Records Library Professor: SB Referring MD: Juan Alberto Liz MD Electrical Intern: Juan Alberto Liz MD Symptoms: Z95.2 - Presence of prosthetic heart valve Study Quality: Adequate ECG Rhythm: Sinus Conclusions: - 1. Normal LV ejection fraction of 60 65% with pseudonormal filling pattern 2. Mild right-sided chamber enlargement with preserved RV contractility 3. Normally function bioprosthetic aortic valve 4. Mild mitral regurgitation 5. Normal RV systolic pressure 6. Mildly dilated ascending aorta at 4 cm 7. No gross pericardial effusion Documented by User: Janay Stafford MD 10/08/24 12:37 [facility] Past Medical History Medical History Severe aortic regurgitation Palpitations Dermatochalasis of both upper eyelids Vitamin D deficiency Dizziness Overweight (BMI 25.0-29.9) Insomnia Sensorineural hearing loss (SNHL) of both ears Osteoarthritis Allergic rhinitis GERD without esophagitis Benign prostatic hyperplasia Peripheral neuropathy Lumbar degenerative disc disease Bilateral lower extremity edema Coronary artery disease Benign essential hypertension Pure hypercholesterolemia Family History Family History Father CVD (cardiovascular disease) Mother Medical history unknown Family history of problems with anesthesia: No Surgical History Surgical History History of aortic valve replacement with bioprosthetic valve Status post transcatheter aortic valve replacement S/P CABG x 5 History of Problems with Anesthesia: No Social History Social History Housing: House Alcohol intake: current Alcohol intake frequency: holidays/special occasions only Alcohol type: wine Patient Tobacco Use Status: Former Tobacco user Tobacco use type: Cigarette e-Cigarette/Vaping Use: Never Used Second Hand Smoke Exposure: Yes Use of substances other than those prescribed or required for medical reasons: No Advance Directives Information Provided: Yes (as above noted) Advance Directives on File: No service: Yes Current occupational status: retired Cognitive needs: No Hearing needs: No Vision needs: Yes Meds Allergies Allergy/AdvReac Type Severity Reaction Status Date / Time doxepin AdvReac Intermediate nightmares Verified 10/04/24 13:18 Home Medications ?Medication ?Instructions ?Recorded ?Confirmed ?Last Taken ?Type brimonidine 0.2 % eye drops 1 drp ophthalmic (eye) BRIDGER LY 03/03/20 10/04/24 10/08/24 History cholecalciferol (vitamin D3) 50 50 mcg PO BID 12/16/23 10/04/24 Unknown History mcg (2,000 unit) capsule Exam Airway Mallampati Class: II TM Dist: <=3cm Neck ROM: Poor Heart: rrr Lungs: cta Assessment and Plan Assessment Anesthesia Assessment: Anesthesia Plan Discussed and Chart Reviewed Final Anesthetic Review Family History of Problems with Anesthesia: No History of Problems with Anesthesia: No NPO: Yes ASA Class: III Final Preanesthetic Review: No Changes in Pt Med Stat, Meds/Allgs Chart Reviewed, Consent Obtained/Reviewed and Anes Risks/Benef Reviewed Patient Risk: Intermediate Procedure Risk: Low Anesthetic Plan Anesthetic Plan: GA and Agree w/ Assess. and Plan Disposition: Standard PACU
[2024-10-08 12:30] VITALS: BP 123/78; PULSE 54; RESP 18; TEMP 36.4; O2SAT 97
[2024-10-08] MEDS: Lactated Ringers 1,000 ML 50 ML IVCONT (12:33)
--- NOTE | 2024-10-08 13:35 | MHC.SHP ---
Pre-Procedural Eval Section A - 24 Hr Update-Section A only Date of Service: 10/08/24 The patient is an INPATIENT: No Changes since office visit: No Cold of Flu in the past 2 weeks, No New Medical Problems, No Changes in Medication and No Patient answered all questions The patient has been examined within 24 hours of the surgical procedure. The History & Physical has been completed within 30 days and I have reviewed it.: Yes Section B - Complete if H&P > 30 days Chief Complaint: Mechanical ptosis of bilateral eyelids Allergies: Allergies Allergy/AdvReac Type Severity Reaction Status Date / Time doxepin AdvReac Intermediate nightmares Verified 10/04/24 13:18 Plan Diagnosis/Plan: Unchanged I have reviewed the history and physical and performed a pertinent physical examination on my patient. No changes have occurred unless specified. Time Spent With Patient Time: Total time managing care of this patient today ____ minutes.
[2024-10-08 14:42] VITALS: BP 127/60; PULSE 63; RESP 18; TEMP 36.1; O2SAT 98
--- NOTE | 2024-10-09 01:09 | OP_ITS ---
DATE OF SERVICE: 10/08/2024 SURGEON: Rigoberto Liu MD PREOPERATIVE DIAGNOSIS: POSTOPERATIVE DIAGNOSIS: PROCEDURE PERFORMED: Levator resection. ESTIMATED BLOOD LOSS: COMPLICATIONS: ANESTHESIA: Local with MAC. ASSISTANTS: SPECIMENS: DESCRIPTION OF PROCEDURE: After obtaining informed consent, the patient was brought to the operating room suite and placed in the supine position. After adequate sedation, a marker was utilized to armen the superior lid crease medially 10 mm in length of each eye. Lidocaine was utilized next and infiltrated subcutaneously at the right upper lid. An incision was created in the premarked area and brought down to the tarsal plate. A double-armed suture 7-0 [place]-Lux was utilized. The lid was inverted to be sure that suture placement was partial thickness. The suture then was placed through the levator and suture was tied. Once adequate elevation was identified, skin was then closed with a 6-0 fast-absorbing suture. Attention was directed to the left eye where an incision was made in the premarked lid crease followed by utilizing Tea scissors to proceed to the tarsal plate. A double-armed 7-0 [place]-Lux was placed through the tarsal partial thickness and the lid was inverted to ensure that it was partial thickness. The sutures were then passed through the levator muscle and once adequate elevation was identified, they were sutured in place. A 6-0 fast-absorbing suture was then utilized to close the skin incision. Erythromycin was placed. Patient tolerated the procedure well and will be seen in followup. INDICATION: Ptosis bilaterally. Rigoberto Liu MD [facility]MOD[facility] / [id number] [facility]
== END 2024-10-08 15:01 | disposition home or self-care (01) ==
PROVIDERS: PCP Internal Medicine; Visit Provider Ophthalmology
PROC: (CPT 67904; principal; 2024-10-08 13:30)
DX: H02.413 Mechanical ptosis of bilateral eyelids (principal); Z83.511 Family history of glaucoma; H40.1113 Primary open-angle glaucoma, right eye, severe stage; H40.013 Open angle with borderline findings, low risk, bilateral; Z96.1 Presence of intraocular lens; I10 Essential (primary) hypertension; I25.10 Atherosclerotic heart disease of native coronary artery without angina pectoris; Z95.1 Presence of aortocoronary bypass graft; I35.1 Nonrheumatic aortic (valve) insufficiency; R00.2 Palpitations; E78.00 Pure hypercholesterolemia, unspecified; K21.9 Gastro-esophageal reflux disease without esophagitis; Z79.1 Long term (current) use of non-steroidal anti-inflammatories (NSAID); Z79.899 Other long term (current) drug therapy; Z79.82 Long term (current) use of aspirin; Z79.51 Long term (current) use of inhaled steroids; Z88.8 Allergy status to other drugs, medicaments and biological substances; Z87.891 Personal history of nicotine dependence
CPT/HCPCS: 67904; J2003; J2250; J2704; J3010

== ENCOUNTER 2025-01-14 11:23 | Outpatient (REF) | payer MEDICARE, SELFPAY ==
[2025-01-14 13:09] LABS: MANUAL DIFF FLAG NO
[2025-01-14 13:41] LABS: Hematocrit 41.5 % (42.0-52.0); Hemoglobin 14.0 g/dl (14.0-18.0); Imm Gran Abs Auto 0.02 X10*3/uL (0.00-0.03); Imm Gran Pct Auto 0.3 % (0.0-0.4); Lymphocytes Absolute Auto 1.6 X10*3/uL (1.2-4.9); Mean Corpuscular HGB Conc 33.7 g/dl (31.0-36.0); Mean Corpuscular Hemoglobin 31.5 pg (27.0-33.0); Mean Corpuscular Volume 93.3 fL (80.0-98.0); NRBC Abs Auto 0.000 X10*3/uL (0.0-0.012); NRBC Pct Auto 0.0 /100WBC (0.0-0.2); Platelet Count 145 X10*3/uL (160-400); Red Blood Count 4.45 X10*6/uL (4.60-5.80); White Blood Count 7.0 X10*3/uL (4.8-10.8)
[2025-01-14 13:58] LABS: Alanine Aminotransferase 77 U/L (0-40); Albumin Level 4.4 g/dL (3.5-5.0); Alkaline Phosphatase 87 U/L (39-117); Anion Gap 9 (12-20); Aspartate Amino Transferase 65 U/L (5-37); Blood Urea Nitrogen 26 mg/dL (9-16); Calcium 9.4 mg/dL (8.4-10.2); Carbon Dioxide 26 mmol/L (22-29); Chloride 111 mmol/L (96-108); Cholesterol 118 mg/dL (<200); Estimated Glomerular Filt Rate 58; HDL Cholesterol 44 mg/dL (>40); Potassium 3.6 mmol/L (3.3-5.1); Sodium 142 mmol/L (135-145); Total Protein 6.9 g/dL (6.5-8.0); Triglycerides 93 mg/dL (<150)
[2025-01-14 14:19] LABS: Free T4 (Free Thyroxine) 0.82 ng/dL (0.71-1.85); Thyroid Stimulating Hormone 4.92 uIU/mL (0.32-4.0)
== END 2025-01-14 11:24 | disposition home or self-care (01) ==
LOC: HO.10HDL 11:23
PROVIDERS: Visit Provider Internal Medicine
DX: E78.00 Pure hypercholesterolemia, unspecified (principal); R79.89 Other specified abnormal findings of blood chemistry; D64.9 Anemia, unspecified
CPT/HCPCS: 36415; 80053; 80061; 84439; 84443; 85025

== ENCOUNTER 2025-01-16 09:36 | Outpatient (AMB) | payer MEDICARE, SELFPAY ==
[2025-01-16 09:43] VITALS: BP 110/78; PULSE 73; O2SAT 97; BMI 24.7
--- NOTE | 2025-01-16 09:43 | MHC.PC.OV ---
Vital Signs 01/16/25 09:43 Height 6 ft Weight 182 lb 6 oz BMI 24.7 BP 110/78 Blood Pressure Location Lt brachial Position Sitting Pulse 73 Pulse Source Pulse Oximeter Pulse Oximetry (%) 97 Oxygen Delivery Method Room Air Intake Visit Reasons: hyperlipidemia, HTN, CAD/cardiomyopathy, lumbar DD Stamp Classifier Required: No Accompanied by: Self / Same As Patient Allergies doxepin Adverse Reaction (Intermediate, Verified 01/16/25 10:04) nightmares Medication List - Last Reconciled 01/16/25 by Ceferino Braxton MD amlodipine 2.5 mg PO DAILY 90 days amoxicillin 2,000 mg (4 x 500 mg) PO ONCE aspirin (Ecotrin Low Strength) 81 mg PO DAILY 90 days brimonidine 0.2% 1 drp ophthalmic (eye) DAILY bumetanide 1 mg orally 1 tablet in am and 1/2 tablet at noon time 90 days cholecalciferol (vitamin D3) 50 mcg PO BID ezetimibe (Zetia) 10 mg PO DAILY 90 days fluticasone propionate 50 mcg/actuation 2 sprays intranasal DAILY PRN 30 days ibuprofen 800 mg PO TID metoprolol succinate ER (Toprol XL) 12.5 mg (1/2 x 25 mg) PO DAILY 90 days omeprazole 20 mg PO DAILY 90 days rosuvastatin 40 mg PO DAILY terazosin 5 mg PO DAILY Tobacco use date assessed: 01/16/25 Fall risk assessment: No Falls in past year Last assessed Fall Risk: 01/16/25 Dental Screening Dental Screen Date: 01/16/25 Did you have a dental visit in the last 12 months?: Yes Did you have a dental problem in the last 6 months where you did not have access to dental care?: No Was dental information given to patient?: Patient has dentist HPI hyperlipidemia, HTN, CAD/cardiomyopathy, lumbar DD HPI Details Patient comes in today for his follow-up visit for his hyperlipidemia, hypertension, lumbar DDD and GERD States that he feels okay He denies any headaches or dizziness Denies any chest pains, no increased shortness of breath No nausea/vomiting, no abdominal pain No change in bowel habits noted States that his chronic low back pain has been mostly manageable He had his follow-up labs done a couple of days ago - to discuss his results [facility] Medical History Severe aortic regurgitation Palpitations Dermatochalasis of both upper eyelids Vitamin D deficiency Dizziness Overweight (BMI 25.0-29.9) Insomnia Sensorineural hearing loss (SNHL) of both ears Osteoarthritis Allergic rhinitis GERD without esophagitis Benign prostatic hyperplasia Peripheral neuropathy Lumbar degenerative disc disease Bilateral lower extremity edema Coronary artery disease Benign essential hypertension Pure hypercholesterolemia Surgical History [place] teeth extracted Hx of cataract extraction Hx of esophagogastroduodenoscopy History of laparoscopic appendectomy Hx of colonoscopy History of aortic valve replacement with bioprosthetic valve Status post transcatheter aortic valve replacement S/P CABG x 5 Family History Father CVD (cardiovascular disease) Mother Medical history unknown Social History Housing: House Alcohol intake: current Alcohol intake frequency: holidays/special occasions only Alcohol type: wine Patient Tobacco Use Status: Former Tobacco user Tobacco use type: Cigarette e-Cigarette/Vaping Use: Never Used Second Hand Smoke Exposure: Yes service: Yes Current occupational status: retired Cognitive needs: No Hearing needs: No Vision needs: Yes Questionnaire PHQ-9 Over the last 2 weeks, how often have you been bothered by any of the following problems? 1. Little interest or pleasure in doing things: not at all 2. Feeling down, depressed, or hopeless: not at all 3. Trouble falling or staying asleep, or sleeping too much: not at all 4. Feeling tired or having little energy: not at all 5. Poor appetite or overeating: not at all 6. Feeling bad about yourself - or that you are a failure or have let yourself or your family down: not at all 7. Trouble concentrating on things, such as reading the newspaper or watching television: not at all 8. Moving or speaking so slowly that other people could have noticed. Or the opposite - being so fidgety or restless that you have been moving around a lot more than usual: not at all 9. Thoughts that you would be better off or of hurting yourself in some way: not at all Total score: 0 Depression Screening Interpretation: Negative Depression Screening Done: Yes 08397 - PHQ-9 Billing: Yes Source: Developed by Drs. Patrick Osorio, Lashae Davila, Krishna Webster and colleagues, with an educational kacie from [employer]. Thrive Questionnaire Date Thrive assessed: 01/16/25 I am a: Patient What is your living situation today?: I have a steady place to live Within the past 12 months, did the food you bought not last and you didn't have the money to get more?: Never true Within the past 12 months, did you worry whether your food would run out before you got money to buy more?: Never true Do you have trouble paying for medicines?: No Do you have trouble getting transportation to medical appointments?: No Do you have trouble paying your heating and electricity bill?: No Do you have trouble taking care of your child, family member or friend?: I choose not to answer this question Do you have trouble with day-to-day activities such as bathing, preparing meals, shopping, managing finances, etc.?: No Are you currently unemployed and looking for a job?: No Are you interested in more education?: No Please select the resources that you would like help with: None Currently or been in a relationship where the following occur: No concerns reported THRIVE Score: 0 AUDIT C Alcohol Use Questionnaire (AUDIT-C) 1. How often do you have a drink containing alcohol?: Never 3. How often do you have six or more drinks on one occasion?: Never Total Score: 0 Score Reviewed/Action Taken: Yes CHAD-7 AMB Questionnaire CHAD-7 Date CHAD - 7 assessed: 01/16/25 Feeling nervous, anxious, or on edge: 0 = Not at all Not being able to stop or control worryin = Not at all Worrying too much about different things: 0 = Not at all Trouble relaxin = Not at all Being so restless that it is hard to sit still: 0 = Not at all Becoming easily annoyed or irritable: 0 = Not at all Feeling afraid as if something awful might happen: 0 = Not at all Total CHAD-7 score (0-4 normal; 5-9 mild; 10-14 moderate; 15-21 severe): 0 Source: Developed by Drs. Patrick Osorio, Lashae Davila, Krishna Webster and colleagues, with an educational kacie from [employer]. Review of Systems Const Denies chills, Reports difficulty sleeping, Reports fatigue, Denies fever(s) and Denies headache(s) ENT Denies dysphagia, Denies dizziness, Denies otalgia, Denies headache(s), Denies neck pain, Denies odynophagia and Denies sore throat Card Denies chest pain, Denies irregular heart rhythm (symptoms have improved with Metoprolol), Denies palpitations and Denies dyspnea Resp Denies chest congestion, Denies cough and Denies dyspnea GI Denies abdominal pain, Denies constipation, Denies dysphagia, Denies diarrhea, Denies nausea, Denies odynophagia and Denies vomiting Denies difficulty urinating, Denies dysuria, Denies nocturia and Denies urinary frequency Musc Reports back pain (over the lower back - chronic) and Denies neck pain Skin/Breast Denies rash Neuro Denies dizziness and Denies headache(s) Psych Denies anxiety Endo Reports fatigue and Denies palpitations Physical exam (Primary Care) Vital Signs: Last Vital Signs Pulse 73 01/16/25 09:43 BP 110/78 01/16/25 09:43 Pulse Ox 97 01/16/25 09:43 Oxygen Delivery Method Room Air 01/16/25 09:43 BMI result Body Mass Index 24.7 Tobacco/Smoking Status: Tobacco use Status Tobacco use date assessed 01/16/25 01/16/25 09:50 Patient Tobacco Use Status Former Tobacco user 01/16/25 09:50 Tobacco use type Cigarette 01/16/25 09:50 e-Cigarette/Vaping Use Never Used 01/16/25 09:50 PHQ-9: PHQ-9 Score PHQ-9: Total score 0 01/16/25 09:50 Depression Screening Interpretation: Negative Thrive Assessment: Date of Thrive Assessment Date Thrive assessed 01/16/25 01/16/25 09:50 Currently or been in a relationship where the following occur: No concerns reported Const General: no acute distress and alert HENMT Ears: TM's normal bilaterally and EAC's normal Throat: Yes posterior oropharynx normal and Yes tonsils normal (no TP congestion noted) Neck Neck: Yes supple and No lymphadenopathy Thyroid: Thyroid normal Resp Auscultation: clear to auscultation bilaterally, no rales and no wheezes Cardio Rate: regular rate Rhythm: regular rhythm Heart sounds: Murmur heart sound present systolic early and soft GI Palpation (GI): Soft to palpation and nontender Auscultation: normal bowel sounds General: Yes no CVA tenderness Back/Spine/Pelvis Back: no CVA tenderness Thoracic/Lumbar Spine: lumbar spinal tenderness Skin Rashes: no rashes Extrem General: Yes no clubbing, cyanosis or edema Results Reviewed Results Reviewed: Laboratory Tests 01/14/25 01/14/25 11:23 11:26 WBC 7.0 Hgb 14.0 Hct 41.5 L Plt Count 145 L Sodium 142 Potassium 3.6 Creatinine 1.18 Estimated GFR 58 Fasting Glucose 114 H Calcium 9.4 AST 65 H ALT 77 H Triglycerides 93 Cholesterol 118 LDL Cholesterol, Calc 56 HDL Cholesterol 44 TSH 4.92 H Free T4 0.82 Coding Level of Care Code Est Pt Level 4 (47264) Diagnoses Coronary artery disease involving three affiliated coronary artery of three affiliated heart without angina pectoris I25.10 Coronary Disease-Associated Artery/Lesion type: three affiliated artery [place] vs. transplanted heart: three affiliated heart Associated angina: without angina Pure hypercholesterolemia E78.00 Benign essential hypertension I10 Palpitations R00.2 Severe aortic regurgitation I35.1 Elevated LFTs R79.89 Impaired fasting glucose R73.01 GERD without esophagitis K21.9 Allergic rhinitis, unspecified seasonality, unspecified trigger J30.9 Allergic rhinitis trigger: unspecified Allergic rhinitis seasonality: unspecified Degeneration of intervertebral disc of lumbar region with discogenic back pain M51.360 Disc-related pain type: discogenic back pain only Vitamin D deficiency E55.9 Insomnia, unspecified type G47.00 Insomnia type: unspecified Anxiety F41.9 Additional Codes PHQ-9 - 75351 - PHQ-9 Billing: Yes ([id number]) Assessment & Plan Assessment & Plan (1) Coronary artery disease: Comment: S/P CABG (5-vessel) in 2003 Code(s): I25.10 - Atherosclerotic heart disease of three affiliated coronary artery without angina pectoris Category: Medical Qualifiers: Coronary Disease-Associated Artery/Lesion type: three affiliated artery [place] vs. transplanted heart: three affiliated heart Associated angina: without angina Qualified Code(s): I25.10 - Atherosclerotic heart disease of three affiliated coronary artery without angina pectoris Plan: S/P CABG (5-vessel) in 2003 Coronary angiogram done on 12/02/2022 revealed 80% stenosis of the proximal LAD, LMCA and ostial diagonal, 70% stenosis of the proximal Cx and 99% stenosis of the ostial RCA Continue Aspirin 81 mg QD and aggressive risk factor modification Follow up with cardiology as scheduled (2) Pure hypercholesterolemia: Code(s): E78.00 - Pure hypercholesterolemia, unspecified Category: Medical Plan: Results of his labs done a couple of days ago reviewed and discussed with patient Reinforced low cholesterol diet Continue Rosuvastatin 40 mg QD and Ezetimibe 10 mg QD Will recheck his labs and fasting lipids in 4 months for follow up (3) Benign essential hypertension: Code(s): I10 - Essential (primary) hypertension Category: Medical Plan: Reinforced low sodium diet - goal is systolic BP of at least 140 to 150 mm or less Continue Amlodipine 2.5 mg QD; he is also on Metoprolol ER 25 mg 1/2 tablet QD but this was more for his palpitations He was also on Lisinopril 2.5 mg before but he stopped taking it after he developed recurrent dizziness while on the Rx (4) Palpitations: Code(s): R00.2 - Palpitations Category: Medical Plan: 3 day Holter monitor done last year revealed (+) frequent supraventricular ectopy with very brief run and frequent ventricular ectopy with a burden of 1.1%. Couplets noted, some triplets, bigeminy, trigeminy. Longest run was 3 beats, with no pauses or high-grade heart blocks Patient was started on Metoprolol ER 25 mg 1/2 tablet QD by cardiology and he states that his symptoms seem to have improved a lot since - to continue Metoprolol ER 25 mg 1/2 tablet QD Follow up with cardiology as scheduled (5) Severe aortic regurgitation: Comment: S/P TAVR in 12/2022 Code(s): I35.1 - Nonrheumatic aortic (valve) insufficiency Category: Medical Plan: S/P TAVR at [facility] in December 2022 with complete resolution of all of his previous cardiac symptoms since his valve replacement surgery Repeat echocardiogram done last year revealed a normal left ventricular systolic function, with the visually estimated ejection fraction between 55-60%The mid anteroseptal segment is hypokinetic and a bioprosthetic aortic valve is present - the prosthetic aortic valve appears to be functioning normally Follow up with cardiology as scheduled (6) Elevated LFTs: Code(s): R79.89 - Other specified abnormal findings of blood chemistry Category: Medical Plan: Patient is advised that his LFTs have gone up quite a bit on his labs done a couple of days ago Reinforced abstinence from alcohol, especially since he is on a statin - Rosuvastatin at 40 mg QD Will recheck his LFTs in 4 months for follow up (7) Impaired fasting glucose: Code(s): R73.01 - Impaired fasting glucose Category: Medical Plan: Patient is cautioned that his FBS is up at 114 mg/dl on his recent labs and that this is the highest we have seen his FBS go Discussed low calorie/low carb diet Will recheck his FBS in 4 months for follow up; will also include a HgbA1c with his labs in 4 months for further evaluation (8) GERD without esophagitis: Code(s): K21.9 - Gastro-esophageal reflux disease without esophagitis Category: Medical Plan: Dietary restrictions reinforced Continue Omeprazole 20 mg QD (9) Allergic rhinitis: Code(s): J30.9 - Allergic rhinitis, unspecified Category: Medical Qualifiers: Allergic rhinitis trigger: unspecified Allergic rhinitis seasonality: unspecified Qualified Code(s): J30.9 - Allergic rhinitis, unspecified Plan: Continue Fluticasone nasal spray 50 mcg QD PRN (10) Lumbar degenerative disc disease: Code(s): M51.36 - Other intervertebral disc degeneration, lumbar region Category: Medical Qualifiers: Disc-related pain type: discogenic back pain only Qualified Code(s): M51.360 - Other intervertebral disc degeneration, lumbar region with discogenic back pain only Plan: Reinforced activity and weight-lifting restrictions States that his low back pain, which he's had for years, have been mostly manageable so far Repeat lumbar spine x-rays done in 2021 revealed (+) dextrocurvature of the lumbar spine centered at the L2 vertebral body and minimal grade 1 anterolisthesis of L4 on L5 that are unchanged from previous. There are also multilevel degenerative disc disease and bilateral facet arthropathy that have slightly progressed compared to the prior examination He has been to physical therapy in the past with only partial improvement of his low back pain; states that he continues to do the back exercises and stretching that he was taught by physical therapy previously on a regular basis help manage his back pain Patient has been advised that if his back pain persist or continues to get worse, we can consider referring him back to physical therapy or send him for an MRI of the lumbar spine for further evaluation (11) Vitamin D deficiency: Code(s): E55.9 - Vitamin D deficiency, unspecified Category: Medical Plan: Continue OTC Vitamin D supplements BID (12) Insomnia: Code(s): G47.00 - Insomnia, unspecified Category: Medical Qualifiers: Insomnia type: unspecified Qualified Code(s): G47.00 - Insomnia, unspecified Plan: Sleep hygiene reinforced Continue Zolpidem 10 mg Q HS PRN and Doxepin 10 mg Q HS PRN (13) Anxiety: Code(s): F41.9 - Anxiety disorder, unspecified Category: Medical Plan: Continue Sertraline 25 mg QD Plan Follow up in 4 months Orders: Orders Complete Blood Count Auto Diff 4 Months D64.9 - Anemia, unspecified, R73.01 - Impaired fasting glucose, R79.89 - Other specified abnormal findings of blood chemistry Vitamin B12 and Folate 4 Months E53.8 - Deficiency of other specified B group vitamins, R73.01 - Impaired fasting glucose, R79.89 - Other specified abnormal findings of blood chemistry Hemoglobin A1c 4 Months R73.01 - Impaired fasting glucose Comprehensive [place]. Panel Fast 4 Months E78.00 - Pure hypercholesterolemia, unspecified, R73.01 - Impaired fasting glucose, R79.89 - Other specified abnormal findings of blood chemistry Lipid Panel 4 Months E78.00 - Pure hypercholesterolemia, unspecified, R73.01 - Impaired fasting glucose, R79.89 - Other specified abnormal findings of blood chemistry TSH reflex Free T4 4 Months E78.00 - Pure hypercholesterolemia, unspecified, R73.01 - Impaired fasting glucose, R79.89 - Other specified abnormal findings of blood chemistry UA CC w/rflx Micro + Cult 4 Months R30.0 - Dysuria, R73.01 - Impaired fasting glucose, R79.89 - Other specified abnormal findings of blood chemistry Vitamin D 25-OH Total 4 Months E55.9 - Vitamin D deficiency, unspecified, R73.01 - Impaired fasting glucose, R79.89 - Other specified abnormal findings of blood chemistry
== END 2025-01-16 10:26 | disposition home or self-care (01) ==
LOC: HO.HMCH 09:37
PROVIDERS: PCP Internal Medicine; Visit Provider Internal Medicine
DX: I25.10 Atherosclerotic heart disease of native coronary artery without angina pectoris (principal); E78.00 Pure hypercholesterolemia, unspecified; I10 Essential (primary) hypertension; R00.2 Palpitations; I35.1 Nonrheumatic aortic (valve) insufficiency; R79.89 Other specified abnormal findings of blood chemistry; R73.01 Impaired fasting glucose; K21.9 Gastro-esophageal reflux disease without esophagitis; J30.9 Allergic rhinitis, unspecified; M51.360 Other intervertebral disc degeneration, lumbar region with discogenic back pain only; E55.9 Vitamin D deficiency, unspecified; G47.00 Insomnia, unspecified; F41.9 Anxiety disorder, unspecified

== ENCOUNTER → 2025-01-16 09:36 | Outpatient (BNVA) | payer MEDICARE, SELFPAY | PROVIDERS: PCP Internal Medicine; Visit Provider Internal Medicine | DX: I25.10 Atherosclerotic heart disease of native coronary artery without angina pectoris (principal); I10 Essential (primary) hypertension; I35.1 Nonrheumatic aortic (valve) insufficiency; E78.00 Pure hypercholesterolemia, unspecified; R00.2 Palpitations; R79.89 Other specified abnormal findings of blood chemistry; R73.01 Impaired fasting glucose; K21.9 Gastro-esophageal reflux disease without esophagitis; J30.9 Allergic rhinitis, unspecified; M51.360 Other intervertebral disc degeneration, lumbar region with discogenic back pain only; E55.9 Vitamin D deficiency, unspecified; G47.00 Insomnia, unspecified; F41.9 Anxiety disorder, unspecified | CPT/HCPCS: 96127; 99212 ==